=== PATIENT | female | born 1940 | race Caucasian/White ===

== ENCOUNTER 2020-06-26 20:10 | Inpatient (IN) | payer MEDICARE, SELFPAY ==
[2020-06-26] VITALS (7 sets, daily range): BP systolic 89–106; BP diastolic 54–68; PULSE 61–97; RESP 16–19; TEMP 36.3; O2SAT 94–99
--- NOTE | ~2020-06-26 | XR_ITS ---
XR chest 2V 06/26/2020 20:54 Indication: Syncope. Procedure: 2 view chest Comparison: No prior studies for comparison. Findings: Cardiomegaly. Small pleural effusions. No focal pneumonia, edema or pneumothorax. There is a left shoulder arthroplasty. No acute osseous abnormality. Impression: 1: Cardiomegaly. 2: Small pleural effusions. Reviewed, dictated and finalized at location A. Impression: 1: Cardiomegaly. 2: Small pleural effusions.
--- NOTE | ~2020-06-26 | US_ITS ---
EXAMINATION: US renal BI EXAM DATE: 06/27/2020 14:39 INDICATION: Acute kidney injury, rule out hydronephrosis. TECHNIQUE: Multiple grayscale and Doppler images of the kidneys were obtained (by a technologist who performed the scan) and subsequently reviewed. There is no prior study for comparison. FINDINGS: Incidental note made of distended IVC. There is bilateral renal cortical thinning, atrophy. Right kidney: There is normal contour and echogenicity. It measures 8.9 x 4.0 x 4.1 centimeters. Th ere are no focal renal lesions identified. There is no hydronephrosis. Left kidney: There is normal contour and echogenicity. It measures 9.2 x 5.1 x 4.5 centimeters. Ther e is 7 mm echogenic focus in the midpole, identical echogenicity to the hilar fat. This could be a pr ojection of the hilar fat extending into renal parenchyma, could be small angiomyolipoma or other angel al mass. There is no hydronephrosis. Bladder unremarkable. Ureteral jets were identified. IMPRESSION: 1. Bilateral renal cortical thinning, atrophy. 2. Incidental echogenic left kidney midpole focus, suspect most likely fat containing region or mass , most likely a benign finding. 3. No hydronephrosis. Reviewed, dictated and finalized at location A. IMPRESSION: 1. Bilateral renal cortical thinning, atrophy. 2. Incidental echogenic left kidney midpole focus, suspect most likely fat con taining region or mass, most likely a benign finding. 3. No hydronephrosis.
--- NOTE | 2020-06-26 20:12 | ECG_ITS ---
Measurements Intervals [place] Rate: 67 P: SC: 0 QRS: 92 QRSD: 87 T: 30 QT: 402 QTc: 427 Interpretive Statements ATRIAL FIBRILLATION RIGHT AXIS DEVIATION LOW QRS VOLTAGE IN PRECORDIAL LEADS BORDERLINE T WAVE ABNORMALITY- ANT/INF LEADS ABNORMAL ECG Electronically Signed On 06-27-2020 6:53:29 CDT by Jacob Rondon D.O.
[2020-06-26 20:43] LABS: Basophils Absolute Auto 0.1 K/mm3 (0.0-0.1); Basophils Percent Auto 1.2 % (0.2-1.2); Eosinophils Absolute Auto 0.1 K/mm3 (0-0.3); Eosinophils Percent Auto 2.7 % (0-4.4); Hematocrit 28.3 % (37.0-47.0); Immature Granulocyte Absolute 0.02 K/mm3 (0.00-0.031); Immature Granulocyte Percent A 0.4 % (0-0.5); Immature Platelet Fraction Pct 5.1 % (0.9-11.2); Lymphocytes Absolute Auto 0.85 K/mm3 (0.9-3.2); Lymphocytes Percent Auto 17.5 % (18.3-44.2); Mean Corpuscular HGB Conc 31.8 g/dl (32-36); Mean Corpuscular Hemoglobin 26.6 pg (26-34); Mean Corpuscular Volume 83.7 fl (80-100); Mean Platelet Volume 11.4 fl (7.4-10.4); Monocytes Absolute Auto 0.8 K/mm3 (0.1-0.6); Monocytes Percent Auto 16.5 % (2.6-8.5); Neutrophils Percent Auto 61.7 % (45.5-73.1); Platelet Count Result 146 k/mm3 (150-375); Red Blood Count 3.38 M/mm3 (4.2-5.4); Red Cell Distribution Width 23.5 % (11.5-14.5); White Blood Count 4.9 K/mm3 (4.5-10.0)
[2020-06-26 20:46] LABS: Glucose Point of Care 179 (65-105)
[2020-06-26 20:52] LABS: INR 1.9; Prothrombin Time 22.8 Seconds (11.1-14.7)
[2020-06-26 20:53] LABS: Partial Thromboplastin Time 55.1 SECONDS (22.3-36.8)
[2020-06-26 20:54] LABS: Alanine Aminotransferase 21 U/L (4-35); Albumin Level 3.7 g/dL (3.5-5.1); Alkaline Phosphatase 151 U/L (38-126); Anion Gap 11 mmol/L (8-16); Aspartate Amino Transferase 43 U/L (14-36); Blood Urea Nitrogen 58 mg/dL (7-17); Calcium 8.9 mg/dL (8.4-10.2); Carbon Dioxide 20 mmol/L (22-30); Chloride 103 mmol/L (98-107); Estimated CRCL calculation 14 ml/min; Estimated Glomerular Filt Rate 20; Glucose 177 mg/dL (65-105); Potassium 5.2 mmol/L (3.4-5.0); Sodium 134 mmol/L (137-145)
--- NOTE | 2020-06-26 21:29 | ED.GENADULT ---
HPI - General Adult General Chief complaint: Unspecified Stated complaint: she has stopped breathing Time Seen by Provider: 06/26/20 20:16 History of Present Illness HPI narrative: Patient is a 80-year-old female who presents the ER with syncope and shortness of breath. Patient and her were getting in the car to go to [employer] and get some ice cream when she reports she felt an upset stomach. She sat in the car and then the reports that she lost consciousness and just was having heavy breathing. She would not respond to his questions or other stimuli. Patient awoke upon arrival to the ER. She has no chest pain or chest pressure. She reports feeling off along with having the abdominal discomfort prior to this occurring. This time she has no additional complaints and other symptoms have resolved. Patient recently moved here from [place]. She has not establish care since moving here. Related Data Allergies Allergy/AdvReac Type Severity Reaction Status Date / Time oxycodone Allergy Stopped Verified 06/26/20 20:28 Breathing Penicillins Allergy Rash Verified 06/26/20 20:28 Sulfa (Sulfonamide Allergy Rash Verified 06/26/20 20:28 Antibiotics) Review of Systems Review of Systems: All systems reviewed & are unremarkable except as noted in HPI and below Constitutional: Constitutional: Reports fatigue, Denies fever(s) and Denies headache(s) Cardiovascular: Cardiovascular: Denies chest pain, Reports syncope, Denies palpitations and Denies dyspnea Respiratory: Respiratory: Denies cough, Denies dyspnea and Denies dyspnea on exertion Gastrointestinal: Gastrointestinal: Denies abdominal pain, Reports GI cramping, Denies diarrhea, Denies nausea and Denies vomiting Neurologic: Reports syncope, Denies focal weakness, Denies numbness and Denies Sensory deficit (Neuro) [facility] Past Medical History Medical History (Updated 06/27/20 @ 00:14 by Nelson Giordano MD) Asthma Atrial fibrillation CHF (congestive heart failure) CVA (cerebral vascular accident) Diabetes GERD (gastroesophageal reflux disease) History of coronary artery disease Hypercholesterolemia Hypertension IBS (irritable bowel syndrome) Surgical History Surgical History History of percutaneous coronary intervention Social History Social History Smoking status: Never smoker Exam Narrative: Exam Narrative: GENERAL: Well-appearing, well-nourished, and in no acute distress. HEAD: Normocephalic, atraumatic. ENT: Mucous membranes moist. CHEST: Clear to auscultation. No respiratory distress. HEART: Regular rate and rhythm. Normal peripheral pulses. ABDOMEN: Soft, nontender, nondistended. EXTREMITIES: Normal range of motion. 2+ edema. SKIN: Warm, dry, no rash. NEURO: No focal deficits. Alert and oriented x3. PSYCH: Normal mood and affect. Course Course Emergency Course: Patient accepted to hospitalist service. Patient is unsure what her baseline lab work is including her creatinine and her hemoglobin. She now reports that a couple weeks ago she was hospitalized in [place] and had a blood transfusion. Will attempt to obtain records. Hospitalist service contacted and has accepted patient for admission. Patient's blood pressures been soft but stable. She was not orthostatic. She reports she has a preserved ejection fraction but given the fact that she has very little knowledge about her medical issues at baseline we will hydrate her conservatively with normal saline at 80 mL/h. Reevaluation(s) Reevaluation #1: Patient evaluated by hospitalist. They are now reporting patient had a GI bleed and currently takes Pradaxa. Hospitalist reports he will contact GI as he guaiaced her and patient had dark tarry stools. Patient stable at this time. No tachycardia. No recurrent syncope. She has not had a bloody bowel movement this time. Date:
[2020-06-26 22:47] LABS: Alveolar/Arterial O2 Gradient 55.2 mmHg; Base Excess ABG -2.3 mEq/l (+/-2.0); Fractional Inspired Oxygen 21 %; HCO3 ABG 19.5 mEq/l (22.0-26.0); Oxygen Content ABG 12.6 %vol (16.0-22.0); PCO2 ABG 24.6 mmHg (35.0-45.0); PO2 ABG 65.1 mmHg (80.0-100.0); Total Hemoglobin 9.7 g/dL (12.0-18.0)
[2020-06-26 22:48] LABS: Device ROOM AIR; Modified Allen's Test Pass; Site Drawn RIGHT RADIAL; pH ABG 7.518 (7.350-7.450)
[2020-06-26 22:53] LABS: Add Urine Microscopic? YES; Appearance Urine Cloudy (Clear); Bilirubin Urine Negative (Negative); Blood Urine Negative (Negative); Color Urine Yellow (Yellow); Glucose Urine UA Negative (Negative); Hyaline Casts Urine 50+ /lpf; Ketones Urine Negative (Negative); Leukocyte Esterase Ur Negative LEU/UL (Negative); Mucus Urine Rare /lpf; Nitrate Urine Negative (Negative); Protein Urine 2+ mg/dL (Negative); RBC Urine 0-2 /hpf (0-2); Specific Grav Ur 1.012 (1.001-1.035); Squamous Epithelial Cell Urine Many /hpf (Few); Transitional Epi Cells Urine Rare /hpf (None Seen); Urobilinogen Urine Negative mg/dL (<2.0); WBC Urine 0-3 /hpf
--- NOTE | 2020-06-26 23:56 | PM.IMHP ---
H&P: HPI History of Present Illness Date/Time: 06/26/20 23:00 Chief Complaint: Passed out today while in the car. Narrative: This is a pleasant 80-year-old diabetic female with known history of congestive heart failure and atrial fibrillation on chronic Pradaxa therapy who [facility] after suffering a syncopal episode. The patient is known to have just relocated from [place] and she was just admitted approximately 2 weeks ago for a GI bleed in [place]. The patient reports that she was got into the car to go to [facility] today when suddenly she felt lightheaded and nauseated and passed out. Associated symptoms include shortness of breath. She was unconscious for about 15 minutes before her got to the hospital. She denies any chest pain, palpitations, abdominal pain, dysuria, vomiting, diarrhea, or focal neurological deficits. The patient does report black stools which she believes is secondary to her hemorrhoids. Routine labs demonstrated normocytic anemia with a Hgb of 7.0 and Hct of 28.3 and acute renal failure with a Cr of 2.40. On my encounter with the patient the patient tells me that she feels very lightheaded. I performed a rectal exam at bedside which was guaiac positive+ No other complaints at this time. Review of Systems Review of Systems: All systems reviewed & are unremarkable except as noted in HPI and below PMFSH Past Medical History Medical History Asthma Atrial fibrillation CHF (congestive heart failure) CVA (cerebral vascular accident) Diabetes GERD (gastroesophageal reflux disease) History of coronary artery disease Hypercholesterolemia Hypertension IBS (irritable bowel syndrome) Surgical History Surgical History History of percutaneous coronary intervention Family History Family History (Updated 06/27/20 @ 01:36 by Keri Geronimo RN) Sibling Brain tumor Hypothyroidism Mother CAD (coronary artery disease) Social History Social History Smoking status: Never smoker Alcohol intake: never Substance use: never Spiritual care concerns: No Meds Home Medications and Allergies Home Medications Medication Instructions Recorded Confirmed Type atorvastatin 10 mg PO DAILY 06/27/20 06/27/20 History benzonatate 100 mg PO TID PRN 06/27/20 06/27/20 History bumetanide 0.5 mg PO BID 06/27/20 06/27/20 History carvedilol 12.5 mg PO BID 06/27/20 06/27/20 History clopidogrel 75 mg PO DAILY 06/27/20 06/27/20 History dabigatran etexilate [Pradaxa] 75 mg PO DAILY 06/27/20 06/27/20 History famotidine 40 mg PO BID 06/27/20 06/27/20 History ferrous sulfate 1 tablet PO DAILY 06/27/20 06/27/20 History gabapentin 400 mg PO BID 06/27/20 06/27/20 History hydralazine 50 mg PO BID 06/27/20 06/27/20 History levothyroxine 125 mcg PO DAILY 06/27/20 06/27/20 History metolazone 2.5 mg PO EVERY OTHER DAY 06/27/20 06/27/20 History potassium chloride 40 meq PO DAILY 06/27/20 06/27/20 History Allergies Allergy/AdvReac Type Severity Reaction Status Date / Time apixaban [From Eliquis] Allergy Rash Verified 06/27/20 02:37 oxycodone Allergy Stopped Verified 06/26/20 20:28 Breathing Penicillins Allergy Rash Verified 06/26/20 20:28 rivaroxaban [From Xarelto] Allergy Rash Verified 06/27/20 02:36 Sulfa (Sulfonamide Allergy Rash Verified 06/26/20 20:28 Antibiotics) Vital Signs Vital Signs - 24 hr 06/26/20 20:20 06/26/20 20:25 06/26/20 20:37 Temperature 36.3 C L Pulse Rate 72 72 65 Respiratory Rate 17 Blood Pressure 106/54 L 103/59 L Pulse Oximetry 99 06/26/20 20:38 06/26/20 21:12 06/26/20 22:00 Temperature Pulse Rate 67 97 68 Respiratory Rate 19 16 Blood Pressure 104/67 89/68 L 98/54 L Pulse Oximetry 97 97 06/26/20 23:16 Temperature Pulse Rate 61 Respiratory Rate 16 Blood Pressure 101/58
[2020-06-27] VITALS (32 sets, daily range): BP systolic 89–154; BP diastolic 53–81; PULSE 60–77; RESP 13–22; TEMP 33.3–36.3; O2SAT 93–100; BMI 24.8
--- NOTE | 2020-06-27 | ECHO_ITS ---
Patient Info Name: Carol Ken Age: 80 years : 1940 Gender: Female Ht: 62 in Wt: 136 lbs BSA: 1.65 m2 HR: 63 bpm BP: 90 / 54 mmHg Heart Rhythm: Atrial Fibrillation, Bradycardia Technical Quality: Good Exam Date: 06/27/2020 10:39 AM Exam Location: [facility] Pulmonary Patient Status: Inpatient Admit Date: 06/26/2020 Staff Ordering Physician: Gilson Christopher MD Turbine Technician: Gildardo Perez, GUILLECS, RT Attending Provider: Nelson Giordano MD Referring Physician: Candi WALKER; Exam Type: CA echo doppler color flow Study Info Indications R55 - Syncope and collapse Complete two-dimensional, color flow and Doppler transthoracic echocardiogram is performed. Summary 1. Complete two-dimensional, color flow and Doppler transthoracic echocardiogram is performed. 2. Left ventricular systolic function is normal, estimated at 55%. 3. Left ventricular chamber dimension is normal. 4. Left ventricular septal wall motion is abnormal with septal motion related to bundle branch block. 5. Right ventricular chamber dimension is moderately enlarged. 6. Right ventricular systolic function is reduced. 7. Left atrial chamber dimension is severely enlarged. 8. Right atrial chamber dimension is severely enlarged. 9. There is no aortic valve stenosis. 10. There is mild to moderate mitral valve regurgitation. 11. There is severe tricuspid valve regurgitation. 12. No pulmonary hypertension, estimated pulmonary arterial systolic pressure is 25 mmHg. 13. Dilated inferior vena cava with no collapse upon inspiration consistent with significantly elevated right atrial pressure, 15 mmHg. Left Ventricle Left ventricular chamber dimension is normal. Left ventricular systolic function is normal, estimated at 55%. There is no increased left ventricular wall thickness. Left ventricular septal wall motion is abnormal with septal motion related to bundle branch block. The left ventricular diastolic function is indeterminate. Right Ventricle Right ventricular chamber dimension is moderately enlarged. Right ventricular systolic function is reduced. Left Atria Left atrial chamber dimension is severely enlarged. Right Atria Right atrial chamber dimension is severely enlarged. Aortic Valve The aortic valve is trileaflet. There is mild aortic valve sclerosis. There is no aortic valve stenosis. There is no aortic valve regurgitation. Pulmonic Valve The pulmonic valve is normal. There is mild pulmonic regurgitation. Mitral Valve The mitral valve has thickened leaflets. There is mild to moderate mitral valve regurgitation. The mitral valve annulus is mildly calcified. Tricuspid Valve The tricuspid valve leaflets are normal. There is severe tricuspid valve regurgitation. No pulmonary hypertension, estimated pulmonary arterial systolic pressure is 25 mmHg. Pericardium/Pleural The pericardium appears normal. There is no pericardial effusion. Inferior Vena Cava Dilated inferior vena cava with no collapse upon inspiration consistent with significantly elevated right atrial pressure, 15 mmHg. Aorta The aortic root size at the sinus of Valsalva is normal. Left Ventricular Outflow Tract Name Value Normal LVOT 2D
[2020-06-27 00:11] LABS: Hematocrit 28.5 % (37.0-47.0); Hemoglobin 9.3 g/dL (12.0-15.0)
--- NOTE | 2020-06-27 01:10 | PC.NURSE ---
This patient, Carol Ken, was admitted to Intensive Care Unit-7. Patient/family oriented to hospital policies and general routines including ID bracelet, bed and alarms, visiting hours, pain management, procedures, bathroom and other care routines, personal items, smoking policy, room service/diet, and visiting hours. Information on how to activate the Rapid Response Team has been discussed. Patient/Family are encouraged to report perceived risks to care and to ask questions if they do not understand what they are told or what they should do.
[2020-06-27 01:34] LABS: Anion Gap 8 mmol/L (8-16); Blood Urea Nitrogen 59 mg/dL (7-17); Calcium 8.6 mg/dL (8.4-10.2); Carbon Dioxide 22 mmol/L (22-30); Chloride 104 mmol/L (98-107); Estimated CRCL calculation 13 ml/min; Estimated Glomerular Filt Rate 19; Glucose 151 mg/dL (65-105); Magnesium 2.9 mg/dL (1.6-2.3); Potassium 5.5 mmol/L (3.4-5.0); Sodium 134 mmol/L (137-145)
[2020-06-27 04:45] LABS: Eosinophils Absolute Auto 0.1 K/mm3 (0-0.3); Eosinophils Percent Auto 1.6 % (0-4.4); Hematocrit 25.4 % (37.0-47.0); Hemoglobin 8.2 g/dL (12.0-15.0); Immature Granulocyte Absolute 0.02 K/mm3 (0.00-0.031); Immature Granulocyte Percent A 0.5 % (0-0.5); Immature Platelet Fraction Pct 5.2 % (0.9-11.2); Lymphocytes Absolute Auto 0.78 K/mm3 (0.9-3.2); Lymphocytes Percent Auto 20.3 % (18.3-44.2); Mean Corpuscular HGB Conc 32.3 g/dl (32-36); Mean Corpuscular Hemoglobin 26.7 pg (26-34); Mean Corpuscular Volume 82.7 fl (80-100); Mean Platelet Volume 11.3 fl (7.4-10.4); Monocytes Absolute Auto 0.5 K/mm3 (0.1-0.6); Monocytes Percent Auto 11.7 % (2.6-8.5); Neutrophils Absolute Auto 2.5 K/mm3 (1.3-6.7); Neutrophils Percent Auto 64.9 % (45.5-73.1); Platelet Count Result 120 k/mm3 (150-375); Red Blood Count 3.07 M/mm3 (4.2-5.4); Red Cell Distribution Width 23.5 % (11.5-14.5); White Blood Count 3.8 K/mm3 (4.5-10.0)
[2020-06-27 04:56] LABS: Anion Gap 8 mmol/L (8-16); Blood Urea Nitrogen 57 mg/dL (7-17); Calcium 8.6 mg/dL (8.4-10.2); Carbon Dioxide 21 mmol/L (22-30); Chloride 105 mmol/L (98-107); Estimated CRCL calculation 12 ml/min; Estimated Glomerular Filt Rate 17; Glucose 160 mg/dL (65-105); Magnesium 2.9 mg/dL (1.6-2.3); Potassium 4.9 mmol/L (3.4-5.0); Sodium 134 mmol/L (137-145)
[2020-06-27 05:03] LABS: Hypochromasia 1+ (NORMAL); Ovalocytes 1+ (NORMAL)
[2020-06-27 05:04] LABS: Macrocytosis 1+ (NORMAL)
[2020-06-27] MEDS: LEVOTHYROXINE SODIUM INJ 100 MCG/5 ML VIAL 62.5 MCG IV PUSH (05:21)
[2020-06-27 05:31] LABS: Glucose Point of Care 150 (65-105)
[2020-06-27] MEDS: SODIUM CHLORIDE 0.9% IV 500 ML IV CONT (08:07)
--- NOTE | 2020-06-27 08:57 | WPDGICN ---
Assessment and Plan Assessment and plan (1) Acute GI bleeding: Code(s): K92.2 - Gastrointestinal hemorrhage, unspecified Status: Acute Assessment and Plan: will proceed with egd to assess source of bleeding. Will get records from recent colonoscopy (patient says that had diverticular bleeding) and pradaxa has been discontinued continue with protonix iv (2) Acute on chronic blood loss anemia: Code(s): D62 - Acute posthemorrhagic anemia Status: Acute Assessment and Plan: continue to monitor transfuse if hb<7 (3) Syncope: Qualifiers: Syncope type: unspecified Qualified Code(s): R55 - Syncope and collapse Code(s): R55 - Syncope and collapse Status: Acute Assessment and Plan: supportive care patient is in icu (4) Renal insufficiency: Code(s): N28.9 - Disorder of kidney and ureter, unspecified Status: Acute Assessment and Plan: monitor and medical treatment (5) Atrial fibrillation: Qualifiers: Atrial fibrillation type: unspecified chronic Qualified Code(s): I48.20 - Chronic atrial fibrillation, unspecified Code(s): I48.91 - Unspecified atrial fibrillation Status: Chronic (6) Anticoagulant long-term use: Code(s): Z79.01 - skilled nursing (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 of anticoagulants Status: Acute Assessment and Plan: on hold GI Consult Note Consult date/time: 06/27/20 08:57 Reason for consult: dark stools HPI: Carol Ken is a 80 year old female with previous GIB (she says that about 3 weeks ago was admitted for GIB, had colonoscopy when used to live in [place] and was told that source of bleeding was diverticular), also congestive heart failure and atrial fibrillation using Pradaxa. She just moved up here about 1 week ago. She was admitted after had episode of lightheadedness, nausea and finally passed out when was in her car with for a few minutes. She also has been having black stools which she believes is secondary to her hemorrhoids and using iron. Labs showed Hgb of 7.0, acute renal failure with a Cr of 2.40. Admitted to ICU, started on iv protonix, given FFP and pradaxa discontinued. She says that had EGD but years ago. Review of Systems Constitutional: Constitutional: Denies chills Eyes: Eyes: Denies blurry vision ENT: Reports Normal hearing present Cardiovascular: Cardiovascular: Denies chest pain Respiratory: Respiratory: Denies cough Gastrointestinal: Gastrointestinal: Denies abdominal pain, Reports melena and Reports nausea Genitourinary: Genitourinary: Denies flank pain Musculoskeletal: Musculoskeletal: Denies neck pain Integumentary/Breasts: Skin/Breast: Reports system reviewed and no additional complaints, except as docu Neurologic: Reports system reviewed and no additional complaints, except as documented Psychiatric: Psychiatric: Reports no additional psychiatric complaints [facility] Past Medical History Medical History (Updated 06/27/20 @ 09:30 by Gilson Christopher MD) Acute on chronic blood loss anemia Anticoagulant long-term use Asthma Atrial fibrillation CHF (congestive heart failure) CVA (cerebral vascular accident) Diabetes GERD (gastroesophageal reflux disease) History of coronary artery disease Hypercholesterolemia Hypertension IBS (irritable bowel syndrome) Surgical History Surgical History History of percutaneous coronary intervention Family History Family History (Updated 06/27/20 @ 01:36 by Keri Geronimo RN) Sibling Brain tumor Hypothyroidism Mother CAD (coronary artery disease) Social History Social History Smoking status: Never smoker Alcohol intake: never Substance use: never Spiritual care concerns: No Meds Home Medications and Allergies Home Medications Medication Instructions Recorded Confirmed Type alma
--- NOTE | 2020-06-27 09:22 | WPDCNINT ---
Assessment and Plan Assessment and plan (1) Syncope: Qualifiers: Syncope type: unspecified Qualified Code(s): R55 - Syncope and collapse Code(s): R55 - Syncope and collapse Status: Acute Assessment and Plan: Patient with multiple syncopal episodes since be 2020: She has had workup done in [place], she had a colonoscopy which showed possible diverticulitis/diverticular bleed. -patient dropped hemoglobin overnight -continue Protonix infusion, -GI has been consulted and appreciate the evaluation recommendation. EGD has been scheduled -will hold Pradaxa, in all the anti platelets and anticoagulation medications. (2) Acute GI bleeding: Code(s): K92.2 - Gastrointestinal hemorrhage, unspecified Status: Acute Assessment and Plan: as above (3) Renal insufficiency: Code(s): N28.9 - Disorder of kidney and ureter, unspecified Status: Acute Assessment and Plan: Unknown baseline function, records have been requested from [facility] with the patient was then recently, 2 weeks back -she does have a history of hypertension, diabetes could have some chronic kidney disease due to that -patient is hypotensive, hypovolemic -will obtain urine lytes, her renal ultrasound - was given a 500 cc bolus with improvement in the blood pressures and urine output -continue to monitor renal function, electrolytes urine output (4) Thrombocytopenia: Code(s): D69.6 - Thrombocytopenia, unspecified Status: Acute Assessment and Plan: Thrombocytopenia could be related to increased consumption due to recent GI bleed and/or ongoing GI bleed -continue to monitor (5) Atrial fibrillation: Qualifiers: Atrial fibrillation type: unspecified chronic Qualified Code(s): I48.20 - Chronic atrial fibrillation, unspecified Code(s): I48.91 - Unspecified atrial fibrillation Status: Chronic Assessment and Plan: Patient with history of atrial fibrillation, on Pradaxa with elevated INR -1 unit of FFP has been ordered to be transfused (6) Anemia: Code(s): D64.9 - Anemia, unspecified Status: Acute Assessment and Plan: Likely due to GI bleed, will continue to monitor -transfuse PRBC as needed Additional Plan Discussed with patient updated her with her condition and plan of care. I answered all questions. She is aware that she will be getting a a EGD today. I have also told her that a I will be ordering an echocardiogram and a bath solution maker will evaluate her Code status: Full code Critical care time spent: 47 minutes This dictation may have been done utilizing a voice recognition system. Attempts have been made to correct errors. However, there may be uncorrected grammatical, spelling, and recognition errors present. Due to a high probability of clinically significant, life threatening deterioration, the patient required my highest level of preparedness to intervene emergently and I personally spent this critical care time directly and personally managing the patient. This critical care time included obtaining a history; examining the patient; pulse oximetry; ordering and review of studies; arranging urgent treatment with development of a management plan; evaluation of patient's response to treatment; frequent reassessment; and discussions with other providers. It was exclusive of separately billable procedures and treating other patients and teaching time. Please see Assessment and Plan section and the rest of the note for further information on patient assessment and treatment Solutions Developer Consult Note Consult date: 06/27/20 Time Seen: 07:09 Reason for consult: syncopal episode, anemia guaiac-positive stools, recent GI bleed 2 weeks ago in [place] HPI: Carol Ken is a 80 year old pleasant female with past medical history of atrial fibrillation on Pradaxa, history of CHF, diabetes type 2, GERD, coronary artery disease, hypercholesterolemia
--- NOTE | 2020-06-27 11:45 | PC.NURSE ---
Pt to GI lab via ritesh
[2020-06-27] MEDS: LACTATED RINGERS 1,000 ML 150 ML IV CONT (12:29)
[2020-06-27 12:36] LABS: Glucose Point of Care 127 (65-105)
--- NOTE | 2020-06-27 13:00 | PM.IMPN ---
Progress Note: A&P Assessment and Plan (1) Syncope: Qualifiers: Syncope type: unspecified Qualified Code(s): R55 - Syncope and collapse Code(s): R55 - Syncope and collapse Status: Acute Assessment and Plan: Appears to be secondary to an acute GI bleed. (2) Acute GI bleeding: Code(s): K92.2 - Gastrointestinal hemorrhage, unspecified Status: Acute Assessment and Plan: Patient was guaiac positive on bedside exam. We will admit the patient to ICU as the patient is hypertensive, obtain old records from last month for scope. continue iv fluids iv protonix. sp FFP, continue to monitor hb (3) Renal insufficiency: Code(s): N28.9 - Disorder of kidney and ureter, unspecified Status: Acute Assessment and Plan: Acute versus chronic renal failure likely secondary to hypoperfusion, continue to watch uo and bmp, creat is 2.7. (4) Thrombocytopenia: Code(s): D69.6 - Thrombocytopenia, unspecified Status: Acute Assessment and Plan: Monitor platelets, transfuse p.r.n. (5) Acute respiratory failure with hypoxemia: Code(s): J96.01 - Acute respiratory failure with hypoxia Status: Acute Assessment and Plan: Oxygen supplementation. (6) Hyperkalemia: Code(s): E87.5 - Hyperkalemia Status: Resolved (7) Atrial fibrillation: Qualifiers: Atrial fibrillation type: unspecified chronic Qualified Code(s): I48.20 - Chronic atrial fibrillation, unspecified Code(s): I48.91 - Unspecified atrial fibrillation Status: Chronic Assessment and Plan: Hold anticoagulation as the patient appears to be having a GI bleed. hold pradaxa (8) CHF (congestive heart failure): Qualifiers: Heart failure type: unspecified Heart failure chronicity: chronic Qualified Code(s): I50.9 - Heart failure, unspecified Code(s): I50.9 - Heart failure, unspecified Status: Chronic Assessment and Plan: Monitor fluid status. Resume home CHF medications when appropriate. (9) Diabetes: Qualifiers: Diabetes mellitus type: type 2 Diabetes mellitus exterminator helper insulin use: unspecified fci insulin use status Diabetes mellitus complication status: without complication Qualified Code(s): E11.9 - Type 2 diabetes mellitus without complications Code(s): E11.9 - Type 2 diabetes mellitus without complications Status: Chronic Assessment and Plan: Accu-Cheks, sliding scale insulin coverage, hypoglycemia protocol. (10) GERD (gastroesophageal reflux disease): Qualifiers: Esophagitis presence: esophagitis presence not specified Qualified Code(s): K21.9 - Gastro-esophageal reflux disease without esophagitis Code(s): K21.9 - Gastro-esophageal reflux disease without esophagitis Status: Chronic Assessment and Plan: Continue PPI therapy. (11) Hypertension: Qualifiers: Hypertension type: unspecified Qualified Code(s): I10 - Essential (primary) hypertension Code(s): I10 - Essential (primary) hypertension Status: Chronic Assessment and Plan: The patient has had labile blood pressures overnight. pt continues to be low. continue to watch patient in icu, pt seen by icu and gi Additional Plan . Subjective Date/time seen: 06/27/20 13:00 Review of Systems Review of Systems: All systems reviewed & are unremarkable except as noted in HPI and below Exam Const: General: cooperative, tired appearing and other (Pale appearing) Orientation/consciousness: patient oriented x3 Resp: Auscultation: diminished lung sounds Cardio: Rate: regular rate Rhythm: abnormal rhythm irregularly irregular Heart sounds: no murmurs GI: Inspection: normal to inspection Auscultation: normal bowel sounds Rectal Exam: heme positive stool Skin: General skin exam: normal color and no rashes or lesions noted Neuro: General: patient
--- NOTE | 2020-06-27 13:18 | WPDANESEPPF ---
Anes - Initial Pre Proc Eval Procedure: Operation Date: 06/27/20 13:00 Proposed Procedures p Esophagogastroduodenoscopy - Patrick Massey MD Date/Time: 06/27/20 13:18 Surgeon: Nelson Giordano MD Pre Op Diagnosis: GI bleed, syncope Patient Data Age: 80 Gender: F Height: 5 ft 2 in Weight: 61.7 kg Last Vital Signs Temp 95.7 F L 06/27/20 13:06 Pulse 74 06/27/20 13:06 Resp 16 06/27/20 13:06 BP 154/81 H 06/27/20 13:06 Pulse Ox 93 06/27/20 13:06 Allergies Allergy/AdvReac Type Severity Reaction Status Date / Time apixaban [From Eliquis] Allergy Rash Verified 06/27/20 12:04 oxycodone Allergy Stopped Verified 06/27/20 12:04 Breathing Penicillins Allergy Rash Verified 06/27/20 12:04 rivaroxaban [From Xarelto] Allergy Rash Verified 06/27/20 12:04 Sulfa (Sulfonamide Allergy Rash Verified 06/27/20 12:04 Antibiotics) Home Medications Medication Instructions Recorded Confirmed Type atorvastatin 10 mg PO DAILY 06/27/20 06/27/20 History benzonatate 100 mg PO TID PRN 06/27/20 06/27/20 History bumetanide 0.5 mg PO BID 06/27/20 06/27/20 History carvedilol 12.5 mg PO BID 06/27/20 06/27/20 History clopidogrel 75 mg PO DAILY 06/27/20 06/27/20 History dabigatran etexilate [Pradaxa] 75 mg PO DAILY 06/27/20 06/27/20 History famotidine 40 mg PO BID 06/27/20 06/27/20 History ferrous sulfate 1 tablet PO DAILY 06/27/20 06/27/20 History gabapentin 400 mg PO BID 06/27/20 06/27/20 History hydralazine 50 mg PO BID 06/27/20 06/27/20 History levothyroxine 125 mcg PO DAILY 06/27/20 06/27/20 History metolazone 2.5 mg PO EVERY OTHER DAY 06/27/20 06/27/20 History potassium chloride 40 meq PO DAILY 06/27/20 06/27/20 History Laboratory Tests 06/26/20 06/26/20 06/26/20 20:23 20:33 20:33 WBC 4.9 K/mm3 K/mm3 (4.5-10.0) RBC 3.38 M/mm3 L M/mm3 (4.2-5.4) Hgb 9.0 g/dL L g/dL (12.0-15.0) Hct 28.3 % L % (37.0-47.0) MCV 83.7 fl fl (80-100) MCH 26.6 pg pg (26-34) MCHC 31.8 g/dl L g/dl (32-36) RDW 23.5 % H % (11.5-14.5) Plt Count 146 k/mm3 L k/mm3 (150-375) MPV 11.4 fl H fl (7.4-10.4) Immature Gran % (Auto) 0.4 % % (0-0.5) Neut % (Auto) 61.7 % % (45.5-73.1) Lymph % (Auto) 17.5 % L % (18.3-44.2) [place] % (Auto) 16.5 % H % (2.6-8.5) Eos % (Auto) 2.7 % % (0-4.4) Baso % (Auto) 1.2 % % (0.2-1.2) Lymph # (Auto) 0.85 K/mm3 L K/mm3 (0.9-3.2) [place] # (Auto) 0.8 K/mm3 H K/mm3 (0.1-0.6) Eos # (Auto) 0.1 K/mm3 K/mm3 (0-0.3) Baso # (Auto) 0.1 K/mm3 K/mm3 (0.0-0.1) Abs Immat Gran (auto) 0.02 K/mm3 K/mm3 (0.00-0.031) Absolute Neuts (auto) 3.0 K/mm3 K/mm3 (1.3-6.7) Absolute Nucleated RBC 0.0 K/mm3 K/mm3 (0.0-0.012) Nucleated RBC % 0.0 % % (0.0-0.2) Platelet Estimate % Immature Plt Fraction 5.1 % % (0.9-11.2) Hypochromasia Macrocytosis Ovalocytes PT INR APTT Puncture Site ABG pH ABG pCO2 ABG pO2 ABG PO2/FiO2 Ratio ABG HCO3 ABG O2 Saturation ABG O2 Content ABG Base Excess A-a Gradient Oxyhemoglobin Total Hemoglobin O2 Delivery Device O2 Liters/Min FiO2 Sodium 134 mmol/L L mmol/L (137-145) Potassium 5.2 mmol/L H mmol/L (3.4-5.0) Chloride 103 mmol/L mmol/L (98-107) Carbon Dioxide 20 mmol/L L mmol/L (22-30) Anion Gap 11 mmol/L mmol/L (8-16) BUN 58 mg/dL H mg/dL (7-17) Creatinine 2.40 mg/dL H mg/dL (0.7-1.0) Estim Creat Clear Calc 14 ml/min ml/min Estimated GFR 20 L
--- NOTE | 2020-06-27 14:14 | PC.NURSE ---
Pt returned from GI lab via stretcher
--- NOTE | 2020-06-27 16:12 | PM.CNCAR ---
Assessment and Plan Additional Plan This is a 80-year-old lady with: Coronary artery disease and chronic atrial fibrillation as detailed above. She hemodynamically is stable is not reporting active ischemic symptoms and enters the hospital after having a self-limited syncopal episode outside of the hospital yesterday and was found to be significantly anemic upon arrival. She apparently is a GI bleeding from significant gastritis with active bleeding noted in the stomach in the GI lab. She also has some degree of senile AV node dysfunction since she is taking nothing but [place] moderate dose of carvedilol and has a heart rate in the 60s and 70s in atrial fibrillation. Echocardiogram today demonstrates reasonably good left ventricular systolic function renita to biatrial dilatation and [id number] mitral regurgitation. At this point the only cardiac recommendation to make is to discontinue both her anti-platelet and anticoagulant medication. I told the patient that the risk versus benefit analysis in my opinion is that anticoagulation is unfavorable with her history of falling and episodes of syncope as well as significant GI bleeding. Her coronary stent procedure was done about 6 months ago and I believe that anti-platelet medication in the form of clopidogrel should also be stopped for the time being. The remainder of her regimen including carvedilol, hydralazine and diuretics can be continued. Upon discharge she intends to become established with and follow with her new automatic brine mixer operator at [facility] and as such I will not arrange for follow-up in our office here as well as that would obviously be redundant. Og Dyer MD [facility] History of Present Illness History of Present Illness Consult date/time: Date of service 06/27/20 16:12 Reason For Visit: GI bleed, syncope Narrative: This is a 80-year-old woman I am seeing at the request of the hospitalist/nascar racer because of syncope which prompted admission to the hospital yesterday. The patient is a previous resident of this community who for many years had been living in the [facility] and moved back to this area for family reasons last week. She has a history of coronary artery disease and atrial fibrillation. She came into the hospital after having a syncopal episode yesterday apparently in the parking lot of an ice cream shop where she and her were going to get out and have ice cream cone. She was brought to the emergency room where she was found to be in atrial fibrillation she was also found to be significantly anemic with a hemoglobin of 7. She was providing history of some gilberto melanotic stool of recent onset although she was a rather poor historian in terms of the exact time course of that. In any event she was admitted to the ICU. Her anticoagulation and anti-platelet regimen has of course been placed on hold and she underwent upper endoscopy earlier today. The endoscopy demonstrated severe gastritis with losing into the fundus of the stomach. She is currently in ICU room 7. And does not actively have any cardiac complaints. Her history of heart disease dates back to 2005 when she states she was still living in this area and she suffered a myocardial infarction. She says that she was treated at [facility] and underwent percutaneous angioplasty and stenting. I have not seen any of those records at the time of this dictation. She did well and then moved to the [place] area where she states she was found to have atrial fibrillation a number of years ago. She can't really remember the time course of that but states that her automatic brine mixer operator in [place] performed at least 2 possibly 3 cardioversion procedures which failed to maintain sinus rhythm and then she underwent an attempt at ablation. The ablation procedure was unsuccessful and she has then been in chronic atrial fibrillation since that. She has been maintained on systemic anticoagulation. She has had a numbe
[2020-06-27 17:06] LABS: IFOB Positive Control Positive; Immunochemical Fecal Occult Bl Positive (N)
[2020-06-27 17:07] LABS: Creatinine Urine 98.8 mg/dL; Potassium Urine Random 87.6 meq/L
[2020-06-27 17:08] LABS: Sodium Urine Random < 5 meq/L
[2020-06-27 17:36] LABS: Eosinophil Urine None Seen % (None Seen)
[2020-06-27 17:49] LABS: Glucose Point of Care 200 (65-105)
--- NOTE | 2020-06-27 18:54 | PC.NURSE ---
Spoke with patient regarding releasing information. Pt stated Information maybe released to Silvia Ken RN
--- NOTE | 2020-06-27 21:50 | PC.NURSE ---
Spoke with Jeanne Chahal CERTIFIED MORTICIAN regarding low urine output, dizziness upon ambulation to bsc and unable to get accurate temp. Okay to place temperature julio. Start NS @ 50ml/hr.
[2020-06-27] MEDS: SODIUM CHLORIDE 0.9% IV 1,000 ML 50 ML IV CONT (22:22)
[2020-06-28] VITALS (11 sets, daily range): BP systolic 91–103; BP diastolic 55–76; PULSE 60–78; RESP 14–22; TEMP 34.9–36.6; O2SAT 92–98
--- NOTE | 2020-06-28 00:21 | PC.NURSE ---
Jeanne Chahal SUPERVISOR CUTTING AND BONING notified of low urine output and marginal blood pressure, Give 500ml NS bolus over 1 hour.
[2020-06-28] MEDS: SODIUM CHLORIDE 0.9% IV 500 ML IV CONT (00:41)
--- NOTE | 2020-06-28 01:15 | PC.NURSE ---
Oral temperature checked to compare to core temperature (due to low urine output) patient now 97.6 orally as before wasn't able to get one. Brett hugger turned off. Patient has minimal urine output, Jeanne Chahal CURING BIN OPERATOR aware. Bladder scan was done, patient shows less that 20 residual. Continue to monitor.
[2020-06-28 04:58] LABS: Basophils Absolute Auto 0.1 K/mm3 (0.0-0.1); Basophils Percent Auto 0.8 % (0.2-1.2); Eosinophils Absolute Auto 0.1 K/mm3 (0-0.3); Eosinophils Percent Auto 1.9 % (0-4.4); Hematocrit 24.8 % (37.0-47.0); Hemoglobin 8.2 g/dL (12.0-15.0); Immature Granulocyte Absolute 0.04 K/mm3 (0.00-0.031); Immature Granulocyte Percent A 0.5 % (0-0.5); Immature Platelet Fraction Pct 6.4 % (0.9-11.2); Lymphocytes Percent Auto 12.3 % (18.3-44.2); Mean Corpuscular HGB Conc 33.1 g/dl (32-36); Mean Corpuscular Hemoglobin 26.5 pg (26-34); Mean Platelet Volume 11.8 fl (7.4-10.4); Monocytes Percent Auto 13.1 % (2.6-8.5); Neutrophils Absolute Auto 5.2 K/mm3 (1.3-6.7); Neutrophils Percent Auto 71.4 % (45.5-73.1); Platelet Count Result 144 k/mm3 (150-375); Red Cell Distribution Width 23.5 % (11.5-14.5); White Blood Count 7.3 K/mm3 (4.5-10.0)
[2020-06-28 05:10] LABS: Anion Gap 9 mmol/L (8-16); Blood Urea Nitrogen 58 mg/dL (7-17); Calcium 8.5 mg/dL (8.4-10.2); Carbon Dioxide 21 mmol/L (22-30); Chloride 103 mmol/L (98-107); Estimated CRCL calculation 12 ml/min; Estimated Glomerular Filt Rate 17; Glucose 162 mg/dL (65-105); Magnesium 2.7 mg/dL (1.6-2.3); Phosphorus 3.9 mg/dL (2.5-4.5); Potassium 4.5 mmol/L (3.4-5.0); Sodium 133 mmol/L (137-145)
--- NOTE | 2020-06-28 05:19 | PC.NURSE ---
Spoke with Jeanne Chahal regarding urine output and labs and blood tinged urine. Give 250ml bolus. Consult nephrology for day shift. May give tylenol IV x1 for generalized aches and pain.
[2020-06-28] MEDS: LEVOTHYROXINE SODIUM INJ 100 MCG/5 ML VIAL 62.5 MCG IV PUSH (05:34)
[2020-06-28 05:36] LABS: Add Urine Microscopic? YES; Appearance Urine Cloudy (Clear); Bilirubin Urine Negative (Negative); Blood Urine 3+ (Negative); Color Urine Amber (Yellow); Glucose Urine UA Negative (Negative); Ketones Urine Negative (Negative); Leukocyte Esterase Ur 2+ LEU/UL (Negative); Nitrate Urine Negative (Negative); Protein Urine 2+ mg/dL (Negative); RBC Urine >75 /hpf (0-2); Specific Grav Ur 1.013 (1.001-1.035); Urobilinogen Urine Negative mg/dL (<2.0); WBC Urine >75 /hpf
[2020-06-28 07:42] LABS: Glucose Point of Care 152 (65-105)
[2020-06-28 08:19] LABS: Anion Gap 9 mmol/L (8-16); Blood Urea Nitrogen 62 mg/dL (7-17); Calcium 8.5 mg/dL (8.4-10.2); Carbon Dioxide 19 mmol/L (22-30); Chloride 103 mmol/L (98-107); Estimated CRCL calculation 13 ml/min; Estimated Glomerular Filt Rate 18; Glucose 156 mg/dL (65-105); Potassium 4.7 mmol/L (3.4-5.0); Sodium 131 mmol/L (137-145)
--- NOTE | 2020-06-28 08:45 | WPDANESPN ---
Anes - Prog Note Post-Op Date/Time: 06/28/20 08:45 Cardiovascular status: normal Respiratory status: other (supplemental O2 per NC) Airway patency: baseline Mental status: baseline Post-Op hydration status: normal Vital Signs: Last Vital Signs Temp 36.4 C L 06/28/20 08:00 Pulse 74 06/28/20 08:00 Resp 15 06/28/20 08:00 BP 95/55 L 06/28/20 08:00 Pulse Ox 95 06/28/20 08:00 Pain Score (VAS): 0 I/O: Intake & Output 06/27/20 06/28/20 06/28/20 23:59 07:59 15:59 Intake Total 640.2 1089.8 Output Total 200 125 Balance 440.2 964.8 Laboratory Tests 06/28/20 04:24 06/28/20 07:53 06/27/20 06/27/20 06/27/20 08:04 12:33 16:38 WBC RBC Hgb Hct MCV MCH MCHC RDW Plt Count MPV Immature Gran % (Auto) Neut % (Auto) Lymph % (Auto) [place] % (Auto) Eos % (Auto) Baso % (Auto) Lymph # (Auto) [place] # (Auto) Eos # (Auto) Baso # (Auto) Abs Immat Gran (auto) Absolute Neuts (auto) Absolute Nucleated RBC Nucleated RBC % % Immature Plt Fraction Sodium Potassium Chloride Carbon Dioxide Anion Gap BUN Creatinine Estim Creat Clear Calc Estimated GFR Glucose POC Capillary Glucose 127 H Calcium Phosphorus Magnesium Urine Color Urine Appearance Urine pH Ur Specific [place] Urine Protein Urine Glucose (UA) Urine Ketones Ur Blood (Man) Urine Nitrate Urine Bilirubin Urine Urobilinogen Leukocyte Esterase Rfl Urine RBC Urine WBC Urine Eosinophils Ur Random Creatinine Ur Random Sodium Ur Random Potassium Ur Random Chloride U Random Chloride/Creat Urine Creatinine Stl Occult Blood (IFOB) Positive H Blood Type B Positive Antibody Screen Negative 06/27/20 06/27/20 06/27/20 16:38 16:38 17:44 WBC RBC Hgb Hct MCV MCH MCHC RDW Plt Count MPV Immature Gran % (Auto) Neut % (Auto) Lymph % (Auto) [place] % (Auto) Eos % (Auto) Baso % (Auto) Lymph # (Auto) [place] # (Auto) Eos # (Auto) Baso # (Auto) Abs Immat Gran (auto) Absolute Neuts (auto) Absolute Nucleated RBC Nucleated RBC % % Immature Plt Fraction Sodium Potassium Chloride Carbon Dioxide Anion Gap BUN Creatinine Estim Creat Clear Calc Estimated GFR Glucose POC Capillary Glucose 200 H Calcium Phosphorus Magnesium Urine Color Urine Appearance Urine pH Ur Specific [place] Urine Protein Urine Glucose (UA) Urine Ketones Ur Blood (Man) Urine Nitrate Urine Bilirubin Urine Urobilinogen Leukocyte Esterase Rfl Urine RBC Urine WBC Urine Eosinophils None seen Ur Random Creatinine Pending Ur Random Sodium < 5 Ur Random Potassium 87.6 Ur Random Chloride Pending U Random Chloride/Creat Pending Urine Creatinine 98.8 Stl Occult Blood (IFOB) Blood Type Antibody Screen 06/28/20 06/28/20 06/28/20 04:24 04:24 04:43 WBC 7.3 RBC 3.10 L Hgb 8.2 L Hct 24.8 L MCV 80.0 MCH 26.5 MCHC 33.1 RDW 23.5 H Plt Count 144 L MPV 11.8 H Immature Gran % (Auto) 0.5 Neut % (Auto) 71.4 Lymph % (Auto) 12.3 L [place] % (Auto) 13.1 H Eos % (Auto) 1.9 Baso % (Auto) 0.8 Lymph # (Auto) 0.90 [place] # (Auto) 1.0 H Eos # (Auto) 0.1 Baso # (Auto) 0.1 Abs Immat Gran (auto) 0.04 H Absolute Neuts (auto) 5.2 Absolute Nucleated RBC 0.0 Nucleated RBC % 0.0 % Immature Plt Fraction 6.4 Sodium 133 L Potassium 4.5 Chloride 103 Carbon Dioxide 21 L Anion Gap 9 BUN 58 H Creatinine 2.70 H Estim Creat Clear Calc 12 Estimated GFR 17 L Glucose 162 H POC Capillary Glucose Calcium 8.5 Phosphorus 3.9 Magnesium 2.7 H Urine Color Britni Urine Appearance Cloudy H Urine pH
--- NOTE | 2020-06-28 09:22 | PM.PNCARD ---
Progress Note: A&P Assessment and Plan (1) Acute GI bleeding: Code(s): K92.2 - Gastrointestinal hemorrhage, unspecified Status: Acute Assessment and Plan: Continue to hold anticoagulants and antiplatelets for now. Gastroenterology evaluation. PPI. (2) Anemia: Code(s): D64.9 - Anemia, unspecified Status: Acute Assessment and Plan: Secondary to GI bleed (3) Atrial fibrillation: Qualifiers: Atrial fibrillation type: unspecified chronic Qualified Code(s): I48.20 - Chronic atrial fibrillation, unspecified Code(s): I48.91 - Unspecified atrial fibrillation Status: Chronic Assessment and Plan: Currently ventricular rates within normal limits. Continue to monitor on telemetry. Subjective Date/time seen: 06/28/20 09:22 Date of service: 06/28/2020 Interval history: Patient denies chest pain or shortness of breath. On telemetry, she is in atrial fibrillation with controlled ventricular response with heart rates in 70s. Exam Narrative: Exam Narrative: PHYSICAL EXAMINATION: GENERAL: Alert, oriented, no acute distress MENTAL STATUS: affect appropriate to mood EYES: Extraocular movements intact, pallor EARS: External ears appear normal, decreased hearing NOSE: Normal and patent, no discharge MOUTH: Mucous membranes moist, tongue normal NECK: Supple, no JVD CHEST: clear to auscultation HEART: Normal rate, irregular rhythm ABDOMEN: Soft, nontender NEUROLOGICAL: Alert, oriented, normal speech, no gross motor deficits MUSCULOSKELETAL: No major deformity, no amputation EXTREMITIES: No pedal edema, no clubbing, no cyanosis SKIN: no rash on the exposed area, no cyanosis PSYCHIATRIC: Normal mood, appropriate affect Objective Data Vital Signs Vital Signs: Vital Signs - 24 hr 06/27/20 10:00 06/27/20 12:20 06/27/20 12:21 Temperature 35.7 C L 35.7 C L Pulse Rate 64 62 62 Respiratory Rate 20 19 19 Blood Pressure 100/76 100/64 100/64 Pulse Oximetry 96 96 100 06/27/20 12:36 06/27/20 12:51 06/27/20 13:06 Temperature 35.7 C L 35.9 C L 35.4 C L Pulse Rate 61 60 74 Respiratory Rate 13 17 16 Blood Pressure 102/55 L 89/58 L 154/81 H Pulse Oximetry 97 95 93 06/27/20 13:21 06/27/20 13:31 06/27/20 13:36 Temperature 35.6 C L 35.6 C L 35.7 C L Pulse Rate 77 75 68 Respiratory Rate 22 H 20 22 H Blood Pressure 131/75 130/70 105/59 L Pulse Oximetry 93 96 100 06/27/20 13:41 06/27/20 14:00 06/27/20 16:00 Temperature 35.6 C L 36.1 C L Pulse Rate 75 68 67 Respiratory Rate 20 15 17 Blood Pressure 116/75 101/53 L 109/63 Pulse Oximetry 100 94 95 06/27/20 19:44 06/27/20 20:00 06/27/20 20:16 Temperature Pulse Rate 68 66 69 Respiratory Rate 15 Blood Pressure Pulse Oximetry 95 97 06/27/20 20:25 06/27/20 22:28 06/27/20 22:29 Temperature 35.6 C L 33.3 C L 33.4 C L Pulse Rate 63 70 Respiratory Rate 21 H Blood Pressure 97/57 L Pulse Oximetry 98 97 06/27/20 22:44 06/27/20 22:59 06/27/20 23:14 Temperature 33.9 C L 34.1 C L 34.4 C L Pulse Rate 62 70 Respiratory Rate 15 Blood Pressure Pulse Oximetry 97 97 06/28/20 00:00 06/28/20 00:19 06/28/20 01:14 Temperature 34.9 C L 35.2 C L 36.4 C Pulse Rate 76 68 76 Respiratory Rate 17 19 17 Blood Pressure 91/56 L Pulse Oximetry 98 98 95 06/28/20 02:00 06/28/20 03:55 06/28/20 04:00 Temperature 36.3 C L Pulse Rate 77 77 78 Respiratory Rate 17 Blood Pressure Pulse Oximetry 96 06/28/20 05:00 06/28/20 08:00 Temperature 36.6 C 36.4 C L Pulse Rate 76 74 Respiratory Rate 15 15 Blood Pressure 101/63 95/55 L Pulse Oximetry 98 95 Intake/Output Intake/Output: Intake & Output 06/25/20 06/26/20 06/27/20 06/28/20 23:59 23:59 23:59 23:59 Intake Total 2230.2 1089.8 Output Total 350 125 Balance 1880.2 964.8 Meds/Results Medications: Active Medications Generic Name Dose Route Start Last Admin Trade Name Freq PRN Reason Stop
--- NOTE | 2020-06-28 10:53 | P.CONNP_ITS ---
Assessment and Plan Assessment and plan (1) Chronic kidney disease, stage IV (severe): Code(s): N18.4 - Chronic kidney disease, stage 4 (severe) Status: Chronic Assessment and Plan: * per my discussion with and patient, her baseline creatinine runs ~ 2.2 - 3.0mg/dl * this was told to them by the storage engineer she saw in [place] - awaiting records from [place] to verify * presumably secondary to her diabetes, hypertension, vascular disease (CAD, hyperlipidemia, CVA...etc) and age * noted to be oliguric -- likely secondary to renal hypoperfusion from anemia/hypotension/volume depletion * renal ultrasound c/w CKD and urine electrolytes supportive therapy * follow trend of repeat labs and UOP (2) Syncope: Qualifiers: Syncope type: unspecified Qualified Code(s): R55 - Syncope and collapse Code(s): R55 - Syncope and collapse Status: Acute Assessment and Plan: * presumably due to severe anemia and associated volume depletion * follow for recurrence (3) Acute GI bleeding: Code(s): K92.2 - Gastrointestinal hemorrhage, unspecified Status: Acute Assessment and Plan: * s/p EGD with gastritis and spontaneous oozing treated with APC. * Gastroenterology following * follow trend of H/H * anticoagulation on hold (4) Hypertension: Qualifiers: Hypertension type: unspecified Qualified Code(s): I10 - Essential (primary) hypertension Code(s): I10 - Essential (primary) hypertension Status: Chronic Assessment and Plan: * on the lower end of normal * holding anti-HTN medications * follow hemodynamics (5) Atrial fibrillation: Qualifiers: Atrial fibrillation type: unspecified chronic Qualified Code(s): I48.20 - Chronic atrial fibrillation, unspecified Code(s): I48.91 - Unspecified atrial fibrillation Status: Chronic Assessment and Plan: * continue rate control startegy * anticoagulation on hold (6) Diabetes: Qualifiers: Diabetes mellitus complication status: without complication Diabetes mellitus buttermaker continuous churn insulin use: unspecified penitentiary insulin use status Diabetes mellitus type: type 2 Qualified Code(s): E11.9 - Type 2 diabetes mellitus without complications Code(s): E11.9 - Type 2 diabetes mellitus without complications Status: Chronic Assessment and Plan: * follow accuchecks * glycemic control Long extensive discussion with the patient as well as her at bedside ( greater than 20 minutes) regarding the events that led to her admission, her previous evaluation by her storage engineer in [place], and current plan of care / therapy since her admission. Will continue to follow History of Present Illness Reason for Consult Consult date: 06/28/20 Reason for consult: chronic renal failure Chief Complaint Chief complaint: GI bleed, syncope History of Present Illness Narrative: The patient is a 80 year old female with past medical history as outlined below who presented to [facility] after an episode of syncope. From review of the records as well as discussion with the patient and her at bedside, the patient has had at least 3 syncopal episode since April of 2020 without a clear etiology. She recently relocated to this area from [place]. Apparently, prior to her relocation, she was hospitalized in [place] about 2 weeks ago with a GI bleed. On the day of admission, the patient got into her car and suddenly felt lightheaded in association with n
--- NOTE | 2020-06-28 10:53 | PM.CNNEP ---
Assessment and Plan Assessment and plan (1) Chronic kidney disease, stage IV (severe): Code(s): N18.4 - Chronic kidney disease, stage 4 (severe) Status: Chronic Assessment and Plan: per my discussion with and patient, her baseline creatinine runs ~ 2.2 - 3.0mg/dl this was told to them by the typesetter apprentice she saw in [place] - awaiting records from [place] to verify presumably secondary to her diabetes, hypertension, vascular disease (CAD, hyperlipidemia, CVA...etc) and age noted to be oliguric -- likely secondary to renal hypoperfusion from anemia/hypotension/volume depletion renal ultrasound c/w CKD and urine electrolytes supportive therapy follow trend of repeat labs and UOP (2) Syncope: Qualifiers: Syncope type: unspecified Qualified Code(s): R55 - Syncope and collapse Code(s): R55 - Syncope and collapse Status: Acute Assessment and Plan: presumably due to severe anemia and associated volume depletion follow for recurrence (3) Acute GI bleeding: Code(s): K92.2 - Gastrointestinal hemorrhage, unspecified Status: Acute Assessment and Plan: s/p EGD with gastritis and spontaneous oozing treated with APC. Gastroenterology following follow trend of H/H anticoagulation on hold (4) Hypertension: Qualifiers: Hypertension type: unspecified Qualified Code(s): I10 - Essential (primary) hypertension Code(s): I10 - Essential (primary) hypertension Status: Chronic Assessment and Plan: on the lower end of normal holding anti-HTN medications follow hemodynamics (5) Atrial fibrillation: Qualifiers: Atrial fibrillation type: unspecified chronic Qualified Code(s): I48.20 - Chronic atrial fibrillation, unspecified Code(s): I48.91 - Unspecified atrial fibrillation Status: Chronic Assessment and Plan: continue rate control startegy anticoagulation on hold (6) Diabetes: Qualifiers: Diabetes mellitus complication status: without complication Diabetes mellitus penitentiary insulin use: unspecified penitentiary insulin use status Diabetes mellitus type: type 2 Qualified Code(s): E11.9 - Type 2 diabetes mellitus without complications Code(s): E11.9 - Type 2 diabetes mellitus without complications Status: Chronic Assessment and Plan: follow accuchecks glycemic control Long extensive discussion with the patient as well as her at bedside ( greater than 20 minutes) regarding the events that led to her admission, her previous evaluation by her typesetter apprentice in [place], and current plan of care / therapy since her admission. Will continue to follow History of Present Illness Reason for Consult Consult date: 06/28/20 Reason for consult: chronic renal failure Chief Complaint Chief complaint: GI bleed, syncope History of Present Illness Narrative: The patient is a 80 year old female with past medical history as outlined below who presented to [facility] after an episode of syncope. From review of the records as well as discussion with the patient and her at bedside, the patient has had at least 3 syncopal episode since April of 2020 without a clear etiology. She recently relocated to this area from [place]. Apparently, prior to her relocation, she was hospitalized in [place] about 2 weeks ago with a GI bleed. On the day of admission, the patient got into her car and suddenly felt lightheaded in association with nausea and apparently passed out. Apparently, she was unconscious for approximately 15 minutes before her was able to get her to the hospital. Prior to the syncopal episode aside from the a for mentioned nausea, she apparently had some mild shortness of breath as well but denies any chest pains, palpitations, abdominal pain, vomiting, diarrhea, or neurological deficits. She does report black
--- NOTE | 2020-06-28 11:15 | PCDIET ---
Nutrition Follow-Up Complete: Nutrition Diagnosis: Inadequate oral intake related to GI bleeding as evidenced by NPO diet. Nutrition Goal: Patient to meet estimated nutritional needs. Goal in progress. Patient has consumed 100% of meals thus far on full liquid diet. Patient very sleepy at time of visit and was falling asleep throughout discussion. Did report intentional 20 pound weight loss prior to admission. Denies having yet tried Ensure Compact which is ordered twice per day. Agree with continuing supplements until diet has further advanced. Last recorded weight is 69.3 kg which is significantly increased from last review. +I/O noted. Bowel Motility: +BM on 06/27/20 x 1. Labs Reviewed: Hgb (8.2), Hct (24.8), Glu (156), BUN (62), Cr (2.6), Na (131), Mg (2.7) Meds Noted: Novolog, Synthroid, Pantoprazole, NS at 50mL/hr Additional Notes: EGD showed gastritis with bleeding. Will continue to monitor with same goal. Nutrition Monitoring and Evaluation: Follow up every 3 days.
[2020-06-28 12:14] LABS: Glucose Point of Care 186 (65-105)
--- NOTE | 2020-06-28 12:36 | PM.IMPN ---
Progress Note: A&P Assessment and Plan (1) Syncope: Qualifiers: Syncope type: unspecified Qualified Code(s): R55 - Syncope and collapse Code(s): R55 - Syncope and collapse Status: Acute Assessment and Plan: Likely secondary to hypovolemia secondary to GI bleed and hypotension (2) Acute GI bleeding: Code(s): K92.2 - Gastrointestinal hemorrhage, unspecified Status: Acute Assessment and Plan: Patient is status post EGD was found to have gastritis Continue PPI (3) Acute on chronic blood loss anemia: Code(s): D62 - Acute posthemorrhagic anemia Status: Acute Assessment and Plan: Secondary to GI bleed (4) Anticoagulant long-term use: Code(s): Z79.01 - [facility] (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 of anticoagulants Status: Acute Assessment and Plan: Holding Plavix and novel anticoagulant (5) Renal insufficiency: Code(s): N28.9 - Disorder of kidney and ureter, unspecified Status: Acute Assessment and Plan: Unknown baseline Continue to monitor Avoid nephrotoxin Follow Nephrology recs (6) Hypertension: Qualifiers: Hypertension type: unspecified Qualified Code(s): I10 - Essential (primary) hypertension Code(s): I10 - Essential (primary) hypertension Status: Chronic Assessment and Plan: Stable (7) Atrial fibrillation: Qualifiers: Atrial fibrillation type: unspecified chronic Qualified Code(s): I48.20 - Chronic atrial fibrillation, unspecified Code(s): I48.91 - Unspecified atrial fibrillation Status: Chronic Assessment and Plan: Rate controlled Holding anticoagulation (8) GERD (gastroesophageal reflux disease): Qualifiers: Esophagitis presence: esophagitis presence not specified Qualified Code(s): K21.9 - Gastro-esophageal reflux disease without esophagitis Code(s): K21.9 - Gastro-esophageal reflux disease without esophagitis Status: Chronic Assessment and Plan: Continue PPI Subjective Date/time seen: 06/28/20 12:36 I feel very tired Review of Systems Review of Systems: Narrative: Patient states that she just feels very tired Exam Narrative: Exam Narrative: Laying in bed Const: General: comfortable, no acute distress, well developed, alert, awake and tired appearing Nutritional Appearance: average body habitus Orientation/consciousness: patient oriented x3 HENMT: Head: normal to inspection, normocephalic and atraumatic Ears: hearing grossly normal bilaterally Face and sinus: normal facial exam Eyes: General: appearance normal, both eyes and all related structures Pupils: Equal, round and reactive pupils present EOM: EOMs intact bilaterally Neck: Neck: full ROM, no lymphadenopathy and no JVD Thyroid: thyroid normal Lymphatic: no lymphadenopathy noted Resp: Effort & Inspection: normal respiratory effort and able to speak in complete sentences Auscultation: clear to auscultation bilaterally Cardio: Jugular venous distension: no JVD Rate: regular rate Rhythm: regular rhythm Heart sounds: S1 normal heart sound present and S2 normal heart sound present GI: GI Palp: Yes Soft to palpation and Yes No hepatosplenomegaly present : General: Yes deferred Skin: Rashes: no rashes Wounds: no wounds Neuro: General: patient oriented x3 and CN's II-XI intact bilaterally Cranial nerves: Yes CN's II-XII intact bilaterally and Yes Equal, round and reactive pupils present Cognition (Neuro): normal cognition Speech: normal speech Gait exam (Neuro): Normal gait present Motor exam (neuro): 5/5 motor strength present throughout Extrem: General: normal to inspection, full ROM, no joint enlargement and no pedal edema Objective Data Vital Signs Vital Signs: Vital Signs - 24 hr 06/27/20 12:51 06/27/20 13:06 06/27/20 13:21 Temperature 96.6 F L 95.7 F L 96.0 F L Pulse Rate 60 74 77 Respiratory Rate 17 16 22 H Blood Pressure 89
--- NOTE | 2020-06-28 14:03 | WPDGIPROGNO ---
Progress Note: A&P Assessment and Plan (1) Acute GI bleeding: Code(s): K92.2 - Gastrointestinal hemorrhage, unspecified Status: Acute Assessment and Plan: egd with gastritis and spontaneous oozing treated with APC, this in setting of pradaxa stable hb ok to start protonix 40mg bid after completing protonix drip bag advance diet and probably she is moving to floor today (2) Acute on chronic blood loss anemia: Code(s): D62 - Acute posthemorrhagic anemia Status: Acute Assessment and Plan: hb stable, holding pradaxa (3) Syncope: Qualifiers: Syncope type: unspecified Qualified Code(s): R55 - Syncope and collapse Code(s): R55 - Syncope and collapse Status: Acute (4) Anticoagulant long-term use: Code(s): Z79.01 - [facility] (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 of anticoagulants Status: Acute Assessment and Plan: on hold (5) Renal insufficiency: Code(s): N28.9 - Disorder of kidney and ureter, unspecified Status: Acute Assessment and Plan: nephrology on board (6) Atrial fibrillation: Qualifiers: Atrial fibrillation type: unspecified chronic Qualified Code(s): I48.20 - Chronic atrial fibrillation, unspecified Code(s): I48.91 - Unspecified atrial fibrillation Status: Chronic Subjective Date/time seen: 06/28/20 14:03 Interval history: no more obvious bleeding, still poor appetite and feeling tired Review of Systems Review of Systems: All systems reviewed & are unremarkable except as noted in HPI and below Exam Const: General: comfortable and no acute distress HENMT: General nose exam: Normal nares present Eyes: General: appearance normal, both eyes and all related structures Neck: Neck: supple Resp: Auscultation: clear to auscultation bilaterally Cardio: Rhythm: abnormal rhythm regularly irregular GI: Inspection: non-distended GI Palp: Yes Soft to palpation and No Tenderness to palpation present (GI) Auscultation: normal bowel sounds Skin: General skin exam: normal color Neuro: Speech: normal speech Motor exam (neuro): Normal motor muscle tone present throughout Extrem: General: normal to inspection Psych: Mental Status: mental status grossly normal Objective Data Vital Signs Vital Signs: Vital Signs - 24 hr 06/27/20 16:00 06/27/20 19:44 06/27/20 20:00 Temperature 97.0 F L Pulse Rate 67 68 66 Respiratory Rate 17 Blood Pressure 109/63 Pulse Oximetry 95 95 06/27/20 20:16 06/27/20 20:25 06/27/20 22:28 Temperature 96.0 F L 92.0 F L Pulse Rate 69 63 Respiratory Rate 15 21 H Blood Pressure 97/57 L Pulse Oximetry 97 98 06/27/20 22:29 06/27/20 22:44 06/27/20 22:59 Temperature 92.1 F L 93.1 F L 93.4 F L Pulse Rate 70 62 Respiratory Rate 15 Blood Pressure Pulse Oximetry 97 97 06/27/20 23:14 06/28/20 00:00 06/28/20 00:19 Temperature 93.9 F L 94.9 F L 95.3 F L Pulse Rate 70 76 68 Respiratory Rate 17 19 Blood Pressure 91/56 L Pulse Oximetry 97 98 98 06/28/20 01:14 06/28/20 02:00 06/28/20 03:55 Temperature 97.6 F 97.3 F L Pulse Rate 76 77 77 Respiratory Rate 17 17 Blood Pressure Pulse Oximetry 95 96 06/28/20 04:00 06/28/20 05:00 06/28/20 08:00 Temperature 97.8 F 97.5 F L Pulse Rate 78 76 74 Respiratory Rate 15 15 Blood Pressure 101/63 95/55 L Pulse Oximetry 98 95 06/28/20 08:45 Temperature Pulse Rate 72 Respiratory Rate 16 Blood Pressure Pulse Oximetry 95 Intake/Output Intake/Output: Intake & Output 06/25/20 06/26/20 06/27/20 06/28/20 23:59 23:59 23:59 23:59 Intake Total 2230.2 1709.8 Output Total 350 125 Balance 1880.2 1584.8 Meds/Results Medications: Active Medications Generic Name Dose Route Start Last Admin Trade Name Freq PRN Reason Stop Dose Admin Dextrose 12.5 gm 06/26/20 23:54 Dextrose 50% 25 Gm/50 Ml Syringe IV PUSH PRN PRN Hypoglycemia Protocol Glucagon 1 mg
[2020-06-28] MEDS: SODIUM CHLORIDE 0.9% IV 1,000 ML 50 ML IV CONT (16:09)
[2020-06-28 16:46] LABS: Glucose Point of Care 218 (65-105)
[2020-06-28] MEDS: INSULIN ASPART (*BKC) 100 UNITS/ML SUB-Q (17:24)
[2020-06-28 20:45] LABS: Glucose Point of Care 177 (65-105)
[2020-06-28] MEDS: PANTOPRAZOLE SODIUM IV 40 MG VIAL IV PUSH (22:16)
[2020-06-29] VITALS (7 sets, daily range): BP systolic 114–124; BP diastolic 65–71; PULSE 70–80; RESP 16–20; TEMP 35.9–36.3; O2SAT 94–97
[2020-06-29] MEDS: LEVOTHYROXINE SODIUM INJ 100 MCG/5 ML VIAL 62.5 MCG IV PUSH (05:30)
[2020-06-29] MEDS: PANTOPRAZOLE SODIUM IV 40 MG VIAL IV PUSH ×2 (07:46→20:56)
[2020-06-29 07:50] LABS: Glucose Point of Care 126 (65-105)
--- NOTE | 2020-06-29 10:31 | PM.PNCARD ---
Progress Note: A&P Additional Plan 80-year-old lady with: Chronic coronary artery disease and chronic AFib with which she has been essentially stable. All the cardiac recommendation at this time was to withhold anticoagulation and anti-platelet medications. She is not receiving any sedation or pain medication unclear to me as to the reason for her lethargy today. Will continue to follow during this hospitalization with you. Upon disposition as I mentioned in my original note she has made plans to establish care with a hide trimmer elsewhere. Og Dyer MD [facility] Subjective Date/time seen: Date of service:06/29/20 10:31 Interval history: Follow-up visit in this 80-year-old woman with: Coronary artery disease as well as chronic atrial fibrillation. Admitted to the hospital with syncopal episode that occurred presumably because of severe anemia/volume depletion patient has upper GI bleeding due to hemorrhagic gastritis. Anticoagulation and anti-platelet medications have been withdrawn. There does not appear to be any further bleeding. Patient is in ICU room 7. And is comfortable and without cardiac complaints but is much more lethargic and exhibiting slow mentation compared to 48 hours ago when I saw her. No specific complaints however Exam Narrative: Exam Narrative: PHYSICAL EXAMINATION: GENERAL: Alert, oriented, no acute distress MENTAL STATUS: affect appropriate to mood EYES: Extraocular movements intact, pallor EARS: External ears appear normal, decreased hearing NOSE: Normal and patent, no discharge MOUTH: Mucous membranes moist, tongue normal NECK: Supple, no JVD CHEST: clear to auscultation HEART: Normal rate, irregular rhythm ABDOMEN: Soft, nontender NEUROLOGICAL: Alert, oriented, normal speech, no gross motor deficits MUSCULOSKELETAL: No major deformity, no amputation EXTREMITIES: No pedal edema, no clubbing, no cyanosis SKIN: no rash on the exposed area, no cyanosis PSYCHIATRIC: Normal mood, appropriate affect Const: General: comfortable and no acute distress Other: Pleasant short statured elderly lady appears to be comfortable in no distress at this time HENMT: Mouth: Yes moist mucous membranes Eyes: Sclera: sclerae normal Pupils: Equal, round and reactive pupils present Neck: Neck: supple and no JVD Thyroid: thyroid normal Other: Carotid pulses are intact bilaterally there are no audible bruits over the neck Resp: Effort & Inspection: normal respiratory effort Auscultation: clear to auscultation bilaterally Cardio: Rhythm: abnormal rhythm irregularly irregular GI: Auscultation: normal bowel sounds Skin: General skin exam: normal color Neuro: Cranial nerves: Yes Equal, round and reactive pupils present Cognition (Neuro): normal cognition Extrem: Other: Very small amount of bipedal edema Objective Data Vital Signs Vital Signs: Vital Signs - 24 hr 06/28/20 16:00 06/28/20 20:00 06/29/20 00:00 Temperature 35.8 C L 36.1 C L 36.3 C L Pulse Rate 66 60 70 Respiratory Rate 14 22 H 20 Blood Pressure 103/68 101/76 114/71 Pulse Oximetry 94 92 94 06/29/20 07:36 06/29/20 07:55 Temperature 35.9 C L Pulse Rate 79 Respiratory Rate 16 Blood Pressure 124/69 Pulse Oximetry 95 95 Intake/Output Intake/Output: Intake & Output 06/26/20 06/27/20 06/28/20 06/29/20 23:59 23:59 23:59 23:59 Intake Total 2230.2 2957.4 150 Output Total 350 275 270 Balance 1880.2 2682.4 -120 Meds/Results Medications: Active Medications Generic Name Dose Route Start Last Admin Trade Name Freq PRN Reason Stop Dose Admin Dextrose 12.5 gm 06/26/20 23:54 Dextrose 50% 25 Gm/50 Ml Syringe IV PUSH PRN PRN Hypoglycemia Protocol Glucagon 1 mg 06/26/20 23:54 Glucagon For Inj 1 Mg Vial IM PRN PRN Hypoglycemia Protocol Dextrose 1,000 mls @ 100 mls/hr 06/26/20 23:54 Dextrose 5% 1,000 Ml IVPB PRN PRN Hypoglycemia Protocol
[2020-06-29 12:29] LABS: Glucose Point of Care 142 (65-105)
[2020-06-29] MEDS: SODIUM CHLORIDE 0.9% IV 1,000 ML 50 ML IV CONT (13:03)
--- NOTE | 2020-06-29 13:05 | PM.IMPN ---
Progress Note: A&P Assessment and Plan (1) Syncope: Qualifiers: Syncope type: unspecified Qualified Code(s): R55 - Syncope and collapse Code(s): R55 - Syncope and collapse Status: Acute Assessment and Plan: Likely secondary to hypovolemia secondary to GI bleed and hypotension (2) Acute GI bleeding: Code(s): K92.2 - Gastrointestinal hemorrhage, unspecified Status: Acute Assessment and Plan: Patient is status post EGD was found to have gastritis Continue PPI (3) Acute on chronic blood loss anemia: Code(s): D62 - Acute posthemorrhagic anemia Status: Acute Assessment and Plan: Secondary to GI bleed (4) Anticoagulant long-term use: Code(s): Z79.01 - [facility] (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 of anticoagulants Status: Acute Assessment and Plan: Holding Plavix and novel anticoagulant (5) Renal insufficiency: Code(s): N28.9 - Disorder of kidney and ureter, unspecified Status: Acute Assessment and Plan: Unknown baseline Continue to monitor Avoid nephrotoxin Follow Nephrology recs (6) Hypertension: Qualifiers: Hypertension type: unspecified Qualified Code(s): I10 - Essential (primary) hypertension Code(s): I10 - Essential (primary) hypertension Status: Chronic Assessment and Plan: Stable (7) Atrial fibrillation: Qualifiers: Atrial fibrillation type: unspecified chronic Qualified Code(s): I48.20 - Chronic atrial fibrillation, unspecified Code(s): I48.91 - Unspecified atrial fibrillation Status: Chronic Assessment and Plan: Rate controlled Holding anticoagulation (8) GERD (gastroesophageal reflux disease): Qualifiers: Esophagitis presence: esophagitis presence not specified Qualified Code(s): K21.9 - Gastro-esophageal reflux disease without esophagitis Code(s): K21.9 - Gastro-esophageal reflux disease without esophagitis Status: Chronic Assessment and Plan: Continue PPI Additional Plan . Subjective Date/time seen: 06/29/20 13:05 Interval history: Follow-up visit in this 80-year-old woman with: Coronary artery disease as well as chronic atrial fibrillation. Admitted to the hospital with syncopal episode that occurred presumably because of severe anemia/volume depletion patient has upper GI bleeding due to hemorrhagic gastritis. Anticoagulation and anti-platelet medications have been withdrawn. There does not appear to be any further bleeding. Patient is in ICU room 7. And is comfortable and without cardiac complaints but is much more lethargic and exhibiting slow mentation compared to 48 hours ago when I saw her. No specific complaints however Review of Systems Review of Systems: ROS unobtainable: Yes unobtainable due to medical condition (Patient seems to be confused today not able to give me any history) Exam Narrative: Exam Narrative: Laying in bed Const: General: cooperative, comfortable, no acute distress, well developed, alert, awake, tired appearing and other (Pale appearing) Nutritional Appearance: average body habitus and overweight Orientation/consciousness: patient oriented x3 HENMT: Head: normal to inspection, normocephalic and atraumatic Ears: hearing grossly normal bilaterally General nose exam: Normal external nose present Face and sinus: normal facial exam Mouth: Yes Normal oral and palatal mucosa present and Yes oropharynx normal Eyes: General: appearance normal, both eyes and all related structures Pupils: Equal, round and reactive pupils present EOM: EOMs intact bilaterally Neck: Neck: full ROM, no lymphadenopathy, supple and no JVD Thyroid: thyroid normal Lymphatic: no lymphadenopathy noted and lymphadenopathy not noted Resp: Effort & Inspection: normal respiratory effort, able to speak in complete sentences and tachypneic Auscultation: clear to auscultation bilaterally and diminished lung sounds
--- NOTE | 2020-06-29 15:19 | PCDIET ---
This patient, Carol Ken, was received from ICU 7 on 06/29/20 at 1520. Patient/family oriented to unit policies and routines
--- NOTE | 2020-06-29 15:24 | WPDGIPROGNO ---
Progress Note: A&P Assessment and Plan (1) Acute GI bleeding: Code(s): K92.2 - Gastrointestinal hemorrhage, unspecified Status: Acute Assessment and Plan: egd with gastritis and spontaneous oozing treated with APC, this in setting of pradaxa which is on hold now stable hb protonix 40mg bid (ok to change to oral) tolerating diet (2) Acute on chronic blood loss anemia: Code(s): D62 - Acute posthemorrhagic anemia Status: Acute Assessment and Plan: hb stable, holding pradaxa (3) Syncope: Qualifiers: Syncope type: unspecified Qualified Code(s): R55 - Syncope and collapse Code(s): R55 - Syncope and collapse Status: Acute (4) Anticoagulant long-term use: Code(s): Z79.01 - [facility] (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 of anticoagulants Status: Acute Assessment and Plan: on hold (5) Renal insufficiency: Code(s): N28.9 - Disorder of kidney and ureter, unspecified Status: Acute Assessment and Plan: nephrology on board (6) Atrial fibrillation: Qualifiers: Atrial fibrillation type: unspecified chronic Qualified Code(s): I48.20 - Chronic atrial fibrillation, unspecified Code(s): I48.91 - Unspecified atrial fibrillation Status: Chronic Assessment and Plan: hold blood thinners, probably ok to resume in ~10 days but will need to monitor hb as outpatient Subjective Date/time seen: 06/29/20 15:24 Interval history: tolerating diet, no signs of bleeding still in icu but she is going to floor Review of Systems Review of Systems: All systems reviewed & are unremarkable except as noted in HPI and below Exam Const: General: comfortable and no acute distress HENMT: General nose exam: Normal nares present Eyes: General: appearance normal, both eyes and all related structures Neck: Neck: supple Resp: Auscultation: clear to auscultation bilaterally Cardio: Rhythm: abnormal rhythm regularly irregular GI: Inspection: non-distended GI Palp: Yes Soft to palpation and No Tenderness to palpation present (GI) Auscultation: normal bowel sounds Skin: General skin exam: normal color Neuro: Speech: normal speech Motor exam (neuro): Normal motor muscle tone present throughout Extrem: General: normal to inspection Psych: Mental Status: mental status grossly normal Objective Data Vital Signs Vital Signs: Vital Signs - 24 hr 06/28/20 16:00 06/28/20 20:00 06/29/20 00:00 Temperature 96.5 F L 96.9 F L 97.4 F L Pulse Rate 66 60 70 Respiratory Rate 14 22 H 20 Blood Pressure 103/68 101/76 114/71 Pulse Oximetry 94 92 94 06/29/20 07:36 06/29/20 07:55 06/29/20 11:45 Temperature 96.7 F L Pulse Rate 79 Respiratory Rate 16 Blood Pressure 124/69 Pulse Oximetry 95 95 95 Intake/Output Intake/Output: Intake & Output 06/26/20 06/27/20 06/28/20 06/29/20 23:59 23:59 23:59 23:59 Intake Total 2230.2 2957.4 1234.2 Output Total 350 275 270 Balance 1880.2 2682.4 964.2 Meds/Results Medications: Active Medications Generic Name Dose Route Start Last Admin Trade Name Freq PRN Reason Stop Dose Admin Dextrose 12.5 gm 06/26/20 23:54 Dextrose 50% 25 Gm/50 Ml Syringe IV PUSH PRN PRN Hypoglycemia Protocol Glucagon 1 mg 06/26/20 23:54 Glucagon For Inj 1 Mg Vial IM PRN PRN Hypoglycemia Protocol Dextrose 1,000 mls @ 100 mls/hr 06/26/20 23:54 Dextrose 5% 1,000 Ml IVPB PRN PRN Hypoglycemia Protocol Sodium Chloride 1,000 mls @ 50 mls/hr 06/27/20 21:55 06/29/20 13:03 Normal Saline Iv IV CONT 50 mls/hr .Q20H JAKCI Administration Insulin Aspart 2 - 5 units 06/27/20 17:00 06/29/20 12:29 Insulin Aspart (*Bkc) 100 Units/Ml SUB-Q Not Given TIDWM JACKI Protocol Levothyroxine Sodium 62.5 mcg 06/27/20 06:30 06/29/20 05:30 Levothyroxine Sodium Inj 100 Mcg/5 Ml Vial IV PUSH 62.5 mcg DAILY@0630 JACKI Administration Onda
--- NOTE | 2020-06-29 16:40 | PM.PNNEP ---
Progress Note: A&P Assessment and Plan (1) ALEX (acute kidney injury): Code(s): N17.9 - Acute kidney failure, unspecified Status: Acute Assessment and Plan: upon further review of records, the patient had a normal creatinine in January 2020 per my discussion with and patient yesterday, they reported her baseline creatinine runs ~ 2.2 - 3.0mg/dl -- I suspect this was ALEX/ARF during her previous hospitalization in [place] (?) however, her renal ultrasound appears consistent with CKD urine electrolytes suggest pre-renal azotemia risk factors for CKD diabetes, hypertension, vascular disease (CAD, hyperlipidemia, CVA...etc) and age oliguria persists -- likely secondary to renal hypoperfusion from anemia/hypotension/volume depletion follow trend of repeat labs and UOP (2) Syncope: Qualifiers: Syncope type: unspecified Qualified Code(s): R55 - Syncope and collapse Code(s): R55 - Syncope and collapse Status: Acute Assessment and Plan: presumably due to severe anemia and associated volume depletion follow for recurrence (3) Acute GI bleeding: Code(s): K92.2 - Gastrointestinal hemorrhage, unspecified Status: Acute Assessment and Plan: s/p EGD with gastritis and spontaneous oozing treated with APC. Gastroenterology following follow trend of H/H anticoagulation on hold (4) Hypertension: Qualifiers: Hypertension type: unspecified Qualified Code(s): I10 - Essential (primary) hypertension Code(s): I10 - Essential (primary) hypertension Status: Chronic Assessment and Plan: appears to be doing better holding anti-HTN medications follow hemodynamics (5) Atrial fibrillation: Qualifiers: Atrial fibrillation type: unspecified chronic Qualified Code(s): I48.20 - Chronic atrial fibrillation, unspecified Code(s): I48.91 - Unspecified atrial fibrillation Status: Chronic Assessment and Plan: continue rate control startegy anticoagulation on hold Cardiology following (6) Diabetes: Qualifiers: Diabetes mellitus type: type 2 Diabetes mellitus extermination supervisor insulin use: unspecified extermination supervisor insulin use status Diabetes mellitus complication status: without complication Qualified Code(s): E11.9 - Type 2 diabetes mellitus without complications Code(s): E11.9 - Type 2 diabetes mellitus without complications Status: Chronic Assessment and Plan: follow accuchecks on SSI Will continue to follow. Subjective Date/time seen: 06/29/20 16:40 Transferred out of ICU; states she is feeling reasonably well; still not making much urine but otherwise does not appear in any distress; records from psychologist counseling in [place] reviewed (and note her kidney function being better than what was thought; seems a bit more sleepy today that when I saw her yesterday. Exam Narrative: Exam Narrative: General: WD/WN female in NAD Heart: normal S1 and S2; IRRR no rub Lungs: clear to auscultation Abdomen: soft, nontender, nondistended, positive bowel sounds Extremities: no cyanosis or clubbing; no edema Skin: warm and dry Objective Data Vital Signs Vital Signs: Vital Signs Temp Pulse Resp BP Pulse Ox 06/29/20 15:54 35.9 C L 80 18 121/65 97 06/29/20 11:45 95 06/29/20 07:55 95 06/29/20 07:36 35.9 C L 79 16 124/69 95 06/29/20 00:00 36.3 C L 70 20 114/71 94 06/28/20 20:00 36.1 C L 60 22 H 101/76 92 Intake/Output Intake/Output: Intake & Output 06/26/20 06/27/20 06/28/20 06/29/20 23:59 23:59 23:59 23:59 Intake Total 2230.2 2957.4 1354.2 Output Total 350 275 545 Balance 1880.2 2682.4 809.2 Meds/Results Medications: Active Medications Generic Name Dose Route Start Last Admin Trade Name Freq PRN Reason Stop Dose Admin Dextrose 12.5 gm 06/26/20 23:54 Dextrose 50% 25 Gm/50 Ml Syringe IV PUSH PRN PRN
--- NOTE | 2020-06-29 16:40 | P.PNNP_ITS ---
Progress Note: A&P Assessment and Plan (1) ALEX (acute kidney injury): Code(s): N17.9 - Acute kidney failure, unspecified Status: Acute Assessment and Plan: * upon further review of records, the patient had a normal creatinine in January 2020 * per my discussion with and patient yesterday, they reported her baseline creatinine runs ~ 2.2 - 3.0mg/dl -- I suspect this was ALEX/ARF during her previous hospitalization in [place] (?) * however, her renal ultrasound appears consistent with CKD * urine electrolytes suggest pre-renal azotemia * risk factors for CKD diabetes, hypertension, vascular disease (CAD, hyperlipidemia, CVA...etc) and age * oliguria persists -- likely secondary to renal hypoperfusion from anemia/hypotension/volume depletion * follow trend of repeat labs and UOP (2) Syncope: Qualifiers: Syncope type: unspecified Qualified Code(s): R55 - Syncope and collapse Code(s): R55 - Syncope and collapse Status: Acute Assessment and Plan: * presumably due to severe anemia and associated volume depletion * follow for recurrence (3) Acute GI bleeding: Code(s): K92.2 - Gastrointestinal hemorrhage, unspecified Status: Acute Assessment and Plan: * s/p EGD with gastritis and spontaneous oozing treated with APC. * Gastroenterology following * follow trend of H/H * anticoagulation on hold (4) Hypertension: Qualifiers: Hypertension type: unspecified Qualified Code(s): I10 - Essential (primary) hypertension Code(s): I10 - Essential (primary) hypertension Status: Chronic Assessment and Plan: * appears to be doing better * holding anti-HTN medications * follow hemodynamics (5) Atrial fibrillation: Qualifiers: Atrial fibrillation type: unspecified chronic Qualified Code(s): I48.20 - Chronic atrial fibrillation, unspecified Code(s): I48.91 - Unspecified atrial fibrillation Status: Chronic Assessment and Plan: * continue rate control startegy * anticoagulation on hold * Cardiology following (6) Diabetes: Qualifiers: Diabetes mellitus type: type 2 Diabetes mellitus customer training specialist insulin use: unspecified shelter insulin use status Diabetes mellitus complication status: without complication Qualified Code(s): E11.9 - Type 2 diabetes mellitus without complications Code(s): E11.9 - Type 2 diabetes mellitus without complications Status: Chronic Assessment and Plan: * follow accuchecks * on SSI Will continue to follow. Subjective Date/time seen: 06/29/20 16:40 Transferred out of ICU; states she is feeling reasonably well; still not making much urine but otherwise does not appear in any distress; records from senior hris analyst in [place] reviewed (and note her kidney function being better than what was thought; seems a bit more sleepy today that when I saw her yesterday. Exam Narrative: Exam Narrative: General: WD/WN female in NAD Heart: normal S1 and S2; IRRR no rub Lungs: clear to auscultation Abdomen: soft, nontender, nondistended, positive bowel sounds Extremities: no cyanosis or clubbing; no edema Skin: warm and dry Objective Data Vital Signs Vital Signs: Vital Signs Temp Pulse Resp BP Pulse Ox 06/29/20 15:54 35.9 C L 80 18 121/65 97 06/29/20 11:45 95 06/29/20 07:55 95 06/29/20 07:36 35.9 C L 79
[2020-06-29 16:56] LABS: Glucose Point of Care 142 (65-105)
[2020-06-29 21:28] LABS: Glucose Point of Care 134 (65-105)
[2020-06-30 04:47] VITALS: BP 137/77; PULSE 72; RESP 20; TEMP 35.8; O2SAT 95
[2020-06-30] MEDS: LEVOTHYROXINE SODIUM INJ 100 MCG/5 ML VIAL 62.5 MCG IV PUSH (05:30)
[2020-06-30 07:27] LABS: Glucose Point of Care 113 (65-105)
[2020-06-30 07:52] LABS: Albumin Level 3.3 g/dL (3.5-5.1); Anion Gap 9 mmol/L (8-16); Blood Urea Nitrogen 55 mg/dL (7-17); Calcium 8.6 mg/dL (8.4-10.2); Carbon Dioxide 18 mmol/L (22-30); Chloride 106 mmol/L (98-107); Estimated CRCL calculation 20 ml/min; Estimated Glomerular Filt Rate 24; Glucose 119 mg/dL (65-105); Phosphorus 4.6 mg/dL (2.5-4.5); Sodium 133 mmol/L (137-145)
[2020-06-30] MEDS: PANTOPRAZOLE SODIUM IV 40 MG VIAL IV PUSH (08:28)
[2020-06-30 08:34] VITALS: O2SAT 95
[2020-06-30 09:41] VITALS: O2SAT 97
[2020-06-30] MEDS: SODIUM CHLORIDE 0.9% IV 1,000 ML 50 ML IV CONT (10:21)
--- NOTE | 2020-06-30 10:52 | PM.PNCARD ---
Progress Note: A&P Assessment and Plan (1) Acute GI bleeding: Code(s): K92.2 - Gastrointestinal hemorrhage, unspecified Status: Acute Assessment and Plan: Continue to hold anticoagulants and antiplatelets for now. Gastroenterology evaluation. PPI. EGD shows gastritis. She also has Pérez catheter with bloody urine. CBC was not checked in 2 days. Last CBC 2 days ago hemoglobin was 8. Check CBC today. (2) Anemia: Code(s): D64.9 - Anemia, unspecified Status: Acute Assessment and Plan: Secondary to GI bleed. Keep hemoglobin above 7. will benefit from IV iron to replenish iron stores quickly. (3) Atrial fibrillation: Qualifiers: Atrial fibrillation type: unspecified chronic Qualified Code(s): I48.20 - Chronic atrial fibrillation, unspecified Code(s): I48.91 - Unspecified atrial fibrillation Status: Chronic Assessment and Plan: Currently ventricular rates within normal limits. Patient is not on telemetry any more. Blood pressure and heart rate within normal. patient is not on AV tamara blocking agents or blood pressure medications. Subjective Date/time seen: Date of /29/21 10:52 laying in bed, denies chest pain shortness of breath. She feels very cold. She has Pérez catheter and Bloody urine. Exam Narrative: Exam Narrative: PHYSICAL EXAMINATION: GENERAL: Alert, oriented, no acute distress MENTAL STATUS: affect appropriate to mood EYES: Extraocular movements intact, pallor EARS: External ears appear normal, decreased hearing NOSE: Normal and patent, no discharge MOUTH: Mucous membranes moist, tongue normal NECK: Supple, no JVD CHEST: clear to auscultation HEART: Normal rate, irregular rhythm ABDOMEN: Soft, nontender NEUROLOGICAL: Alert, oriented, normal speech, no gross motor deficits MUSCULOSKELETAL: No major deformity, no amputation EXTREMITIES: No pedal edema, no clubbing, no cyanosis SKIN: no rash on the exposed area, no cyanosis PSYCHIATRIC: Normal mood, appropriate affect Const: General: comfortable and no acute distress Other: Pleasant short statured elderly lady appears to be comfortable in no distress at this time HENMT: Mouth: Yes moist mucous membranes Eyes: Sclera: sclerae normal Pupils: Equal, round and reactive pupils present Neck: Neck: supple and no JVD Thyroid: thyroid normal Other: Carotid pulses are intact bilaterally there are no audible bruits over the neck Resp: Effort & Inspection: normal respiratory effort Auscultation: clear to auscultation bilaterally Cardio: Rhythm: abnormal rhythm irregularly irregular GI: Auscultation: normal bowel sounds Skin: General skin exam: normal color Neuro: Cranial nerves: Yes Equal, round and reactive pupils present Cognition (Neuro): normal cognition Extrem: Other: Very small amount of bipedal edema Objective Data Vital Signs Vital Signs: Vital Signs - 24 hr 06/29/20 11:45 06/29/20 15:54 06/29/20 20:44 Temperature 35.9 C L 36.1 C L Pulse Rate 80 74 Respiratory Rate 18 16 Blood Pressure 121/65 121/66 Pulse Oximetry 95 97 97 06/29/20 21:00 06/30/20 04:47 06/30/20 08:34 Temperature 35.8 C L Pulse Rate 72 Respiratory Rate 20 Blood Pressure 137/77 Pulse Oximetry 97 95 95 06/30/20 09:41 Temperature Pulse Rate Respiratory Rate Blood Pressure Pulse Oximetry 97 Intake/Output Intake/Output: Intake & Output 06/27/20 06/28/20 06/29/20 06/30/20 23:59 23:59 23:59 23:59 Intake Total 2230.2 2957.4 1354.2 1290 Output Total 350 275 545 300 Balance 1880.2 2682.4 809.2 990 Meds/Results Medications: Active Medications Generic Name Dose Route Start Last Admin Trade Name Freq PRN Reason Stop Dose Admin Dextrose 12.5 gm 06/26/20 23:54 Dextrose 50% 25 Gm/50 Ml Syringe IV PUSH PRN PRN Hypoglycemia Protocol Glucagon 1 mg 06/26/20 23:54 Glucagon For Inj 1 Mg Vial IM UT
[2020-06-30 11:13] LABS: Basophils Percent Auto 0.5 % (0.2-1.2); Eosinophils Absolute Auto 0.2 K/mm3 (0-0.3); Eosinophils Percent Auto 1.8 % (0-4.4); Hematocrit 26.2 % (37.0-47.0); Hemoglobin 8.3 g/dL (12.0-15.0); Immature Granulocyte Absolute 0.03 K/mm3 (0.00-0.031); Immature Granulocyte Percent A 0.4 % (0-0.5); Immature Platelet Fraction Pct 5.9 % (0.9-11.2); Lymphocytes Absolute Auto 1.06 K/mm3 (0.9-3.2); Lymphocytes Percent Auto 12.7 % (18.3-44.2); Mean Corpuscular HGB Conc 31.7 g/dl (32-36); Mean Corpuscular Volume 85.3 fl (80-100); Mean Platelet Volume 12.1 fl (7.4-10.4); Monocytes Absolute Auto 1.3 K/mm3 (0.1-0.6); Monocytes Percent Auto 15.8 % (2.6-8.5); Neutrophils Absolute Auto 5.7 K/mm3 (1.3-6.7); Neutrophils Percent Auto 68.8 % (45.5-73.1); Platelet Count Result 151 k/mm3 (150-375); Red Blood Count 3.07 M/mm3 (4.2-5.4); Red Cell Distribution Width 24.3 % (11.5-14.5); White Blood Count 8.3 K/mm3 (4.5-10.0)
--- NOTE | 2020-06-30 11:13 | PCNFU ---
Nutrition Follow-Up Complete: Inadequate oral intake related to GI bleeding as evidenced by NPO diet. Goal: Patient to meet estimated nutritional needs. Progressing towards goal, we will continue current goal. Pt current nutrition is Heart Healthy/DB. Nutrition recommendation: Frozen Nutritional Treat BID. Last recorded weight is 72.6 kg,up from 61.7 kg on admit. Bowel Motility:+BM reported 06/28 Labs Reviewed:Glu 119,NA 133,GFR 24,Alb 3.1 Meds Noted:NovoLog, Synthroid, NS, Protonix. Additional Notes: Patient seen today for nutrition follow up. Oral Intake about 25% of meals. Spoke with patient today,she does not like ensure. MD orders for frozen nutritional treat ice cream BID which will provide patient with 300 kcals and 9 gms protein. Encouraged po intake. Agree with diet orders. Monitoring: Follow up every 5 days.
[2020-06-30 11:42] LABS: Glucose Point of Care 146 (65-105)
--- NOTE | 2020-06-30 12:00 | PM.IMPN ---
Progress Note: A&P Assessment and Plan (1) Syncope: Qualifiers: Syncope type: unspecified Qualified Code(s): R55 - Syncope and collapse Code(s): R55 - Syncope and collapse Status: Acute Assessment and Plan: Likely secondary to hypovolemia secondary to GI bleed and hypotension PATIENT IS STATUS POST BLOOD TRANSFUSION SUPPORTIVE CARE NO NEW EVENTS (2) Acute GI bleeding: Code(s): K92.2 - Gastrointestinal hemorrhage, unspecified Status: Acute Assessment and Plan: Patient is status post EGD was found to have gastritis Continue PPI (3) Acute on chronic blood loss anemia: Code(s): D62 - Acute posthemorrhagic anemia Status: Acute Assessment and Plan: Secondary to GI bleed (4) Anticoagulant long-term use: Code(s): Z79.01 - halfway (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 of anticoagulants Status: Acute Assessment and Plan: Holding Plavix and novel anticoagulant (5) Renal insufficiency: Code(s): N28.9 - Disorder of kidney and ureter, unspecified Status: Acute Assessment and Plan: Unknown baseline Continue to monitor Avoid nephrotoxin Follow Nephrology recs (6) Hypertension: Qualifiers: Hypertension type: unspecified Qualified Code(s): I10 - Essential (primary) hypertension Code(s): I10 - Essential (primary) hypertension Status: Chronic Assessment and Plan: Stable (7) Atrial fibrillation: Qualifiers: Atrial fibrillation type: unspecified chronic Qualified Code(s): I48.20 - Chronic atrial fibrillation, unspecified Code(s): I48.91 - Unspecified atrial fibrillation Status: Chronic Assessment and Plan: Rate controlled Holding anticoagulation (8) GERD (gastroesophageal reflux disease): Qualifiers: Esophagitis presence: esophagitis presence not specified Qualified Code(s): K21.9 - Gastro-esophageal reflux disease without esophagitis Code(s): K21.9 - Gastro-esophageal reflux disease without esophagitis Status: Chronic Assessment and Plan: Continue PPI Additional Plan . Subjective Date/time seen: 06/30/20 12:00 I FEEL WELL Interval history: tolerating diet, no signs of bleeding PARTICIPATING IN PT OT PATIENT IS REQUIRING SUPPLEMENTAL OXYGEN AT REST 2 L SATURATING AT 92% Review of Systems Review of Systems: Narrative: PATIENT STATES THAT SHE FEELS GOOD TODAY All systems reviewed & are unremarkable except as noted in HPI and below Exam Narrative: Exam Narrative: SITTING IN CHAIR PARTICIPATING WITH OT IN THERAPY Const: General: cooperative, comfortable, no acute distress, well developed, alert, awake, tired appearing and other (Pale appearing) Nutritional Appearance: average body habitus and overweight Orientation/consciousness: patient oriented x3 HENMT: Head: normal to inspection, normocephalic and atraumatic Ears: hearing grossly normal bilaterally General nose exam: Normal external nose present Face and sinus: normal facial exam Mouth: Yes Normal oral and palatal mucosa present and Yes oropharynx normal Eyes: General: appearance normal, both eyes and all related structures Pupils: Equal, round and reactive pupils present EOM: EOMs intact bilaterally Neck: Neck: full ROM, no lymphadenopathy, supple and no JVD Thyroid: thyroid normal Lymphatic: no lymphadenopathy noted and lymphadenopathy not noted Resp: Effort & Inspection: normal respiratory effort and able to speak in complete sentences Auscultation: clear to auscultation bilaterally and diminished lung sounds Cardio: Jugular venous distension: no JVD Rate: regular rate Rhythm: regular rhythm and abnormal rhythm irregularly irregular Heart sounds: S1 normal heart sound present, S2 normal heart sound present and no murmurs GI: Inspection: normal to inspection Auscultation: normal bowel sounds Rectal Exam: heme positive stool : General: Yes deferred Skin: Gen
--- NOTE | 2020-06-30 15:37 | P.PNNP_ITS ---
Progress Note: A&P Assessment and Plan (1) ALEX (acute kidney injury): Code(s): N17.9 - Acute kidney failure, unspecified Status: Acute Assessment and Plan: * upon further review of records, the patient had a normal creatinine in January 2020 * per my discussion with and patient, they reported her baseline creatinine runs ~ 2.2 - 3.0mg/dl -- I suspect this was ALEX/ARF during her previous hospitalization in [place] (?) * however, her renal ultrasound appears consistent with CKD * suspect acute injury secondary to renal hypoperfusion from anemia/hyp otension/volume depletion possibly worsened by UTI * urine electrolytes suggest pre-renal azotemia * risk factors for CKD diabetes, hypertension, vascular disease (CAD, hyperlipidemia, CVA...etc) and age * follow trend of repeat labs and UOP (2) Syncope: Qualifiers: Syncope type: unspecified Qualified Code(s): R55 - Syncope and collapse Code(s): R55 - Syncope and collapse Status: Acute Assessment and Plan: * presumably due to severe anemia and associated volume depletion * follow for recurrence (3) Acute GI bleeding: Code(s): K92.2 - Gastrointestinal hemorrhage, unspecified Status: Acute Assessment and Plan: * s/p EGD with gastritis and spontaneous oozing treated with APC. * Gastroenterology following * follow trend of H/H * anticoagulation on hold (4) Hypertension: Qualifiers: Hypertension type: unspecified Qualified Code(s): I10 - Essential (primary) hypertension Code(s): I10 - Essential (primary) hypertension Status: Chronic Assessment and Plan: * appears to be doing better * holding anti-HTN medications * follow hemodynamics (5) Atrial fibrillation: Qualifiers: Atrial fibrillation type: unspecified chronic Qualified Code(s): I48.20 - Chronic atrial fibrillation, unspecified Code(s): I48.91 - Unspecified atrial fibrillation Status: Chronic Assessment and Plan: * continue rate control startegy * anticoagulation on hold * Cardiology following (6) UTI (urinary tract infection): Code(s): N39.0 - Urinary tract infection, site not specified Status: Acute Assessment and Plan: * urine culture with Klebsiella and E.coli * start antibiotics(?) (7) Diabetes: Qualifiers: Diabetes mellitus complication status: without complication Diabetes mellitus long term care administrator insulin use: unspecified long term care administrator insulin use status Diabetes mellitus type: type 2 Qualified Code(s): E11.9 - Type 2 diabetes mellitus without complications Code(s): E11.9 - Type 2 diabetes mellitus without complications Status: Chronic Assessment and Plan: * follow accuchecks * on SSI Will continue to follow. Subjective Date/time seen: 06/30/20 15:37 Other than generalized weakness, she appears in no acute distress; no issues or events overnight or earlier this AM; no other complaints voiced at the time of my visit. Exam Narrative: Exam Narrative: General: WD/WN female in NAD Heart: normal S1 and S2; IRRR no rub Lungs: clear to auscultation Abdomen: soft, nontender, nondistended, positive bowel sounds Extremities: no cyanosis or clubbing; no edema Skin: warm and intact Objective Data Vital Signs Vital Signs: Vital Signs Temp Pulse Resp BP Pulse Ox 06/30/20 09:41 97
--- NOTE | 2020-06-30 15:37 | PM.PNNEP ---
Progress Note: A&P Assessment and Plan (1) ALEX (acute kidney injury): Code(s): N17.9 - Acute kidney failure, unspecified Status: Acute Assessment and Plan: upon further review of records, the patient had a normal creatinine in January 2020 per my discussion with and patient, they reported her baseline creatinine runs ~ 2.2 - 3.0mg/dl -- I suspect this was ALEX/ARF during her previous hospitalization in [place] (?) however, her renal ultrasound appears consistent with CKD suspect acute injury secondary to renal hypoperfusion from anemia/hypotension/volume depletion possibly worsened by UTI urine electrolytes suggest pre-renal azotemia risk factors for CKD diabetes, hypertension, vascular disease (CAD, hyperlipidemia, CVA...etc) and age follow trend of repeat labs and UOP (2) Syncope: Qualifiers: Syncope type: unspecified Qualified Code(s): R55 - Syncope and collapse Code(s): R55 - Syncope and collapse Status: Acute Assessment and Plan: presumably due to severe anemia and associated volume depletion follow for recurrence (3) Acute GI bleeding: Code(s): K92.2 - Gastrointestinal hemorrhage, unspecified Status: Acute Assessment and Plan: s/p EGD with gastritis and spontaneous oozing treated with APC. Gastroenterology following follow trend of H/H anticoagulation on hold (4) Hypertension: Qualifiers: Hypertension type: unspecified Qualified Code(s): I10 - Essential (primary) hypertension Code(s): I10 - Essential (primary) hypertension Status: Chronic Assessment and Plan: appears to be doing better holding anti-HTN medications follow hemodynamics (5) Atrial fibrillation: Qualifiers: Atrial fibrillation type: unspecified chronic Qualified Code(s): I48.20 - Chronic atrial fibrillation, unspecified Code(s): I48.91 - Unspecified atrial fibrillation Status: Chronic Assessment and Plan: continue rate control startegy anticoagulation on hold Cardiology following (6) UTI (urinary tract infection): Code(s): N39.0 - Urinary tract infection, site not specified Status: Acute Assessment and Plan: urine culture with Klebsiella and E.coli start antibiotics(?) (7) Diabetes: Qualifiers: Diabetes mellitus complication status: without complication Diabetes mellitus half-way insulin use: unspecified meterman insulin use status Diabetes mellitus type: type 2 Qualified Code(s): E11.9 - Type 2 diabetes mellitus without complications Code(s): E11.9 - Type 2 diabetes mellitus without complications Status: Chronic Assessment and Plan: follow accuchecks on SSI Will continue to follow. Subjective Date/time seen: 06/30/20 15:37 Other than generalized weakness, she appears in no acute distress; no issues or events overnight or earlier this AM; no other complaints voiced at the time of my visit. Exam Narrative: Exam Narrative: General: WD/WN female in NAD Heart: normal S1 and S2; IRRR no rub Lungs: clear to auscultation Abdomen: soft, nontender, nondistended, positive bowel sounds Extremities: no cyanosis or clubbing; no edema Skin: warm and intact Objective Data Vital Signs Vital Signs: Vital Signs Temp Pulse Resp BP Pulse Ox 06/30/20 09:41 97 06/30/20 08:34 95 06/30/20 04:47 35.8 C L 72 20 137/77 95 06/29/20 21:00 97 06/29/20 20:44 36.1 C L 74 16 121/66 97 Intake/Output Intake/Output: Intake & Output 06/27/20 06/28/20 06/29/20 06/30/20 23:59 23:59 23:59 23:59 Intake Total 2230.2 2957.4 1354.2 1390 Output Total 350 275 545 300 Balance 1880.2 2682.4 809.2 1090 Meds/Results Medications: Active Medications Generic Name Dose Route Start Last Admin Trade Name Freq PRN Reason Stop Dose Admin Dextrose 12.5 gm 06/26/20 23:54 Dextrose 50% 25 Gm/50 M
[2020-06-30 16:30] VITALS: BP 113/62; PULSE 76; RESP 18; TEMP 36.3; O2SAT 100
--- NOTE | 2020-06-30 16:50 | WPDGIPROGNO ---
Progress Note: A&P Assessment and Plan (1) Acute GI bleeding: Code(s): K92.2 - Gastrointestinal hemorrhage, unspecified Status: Acute Assessment and Plan: egd with gastritis and spontaneous oozing treated with APC, this in setting of pradaxa which is on hold now stable hb protonix 40mg bid- will switch to oral tolerating diet will follow from [place], call if questions (2) Acute on chronic blood loss anemia: Code(s): D62 - Acute posthemorrhagic anemia Status: Acute Assessment and Plan: hb stable, holding pradaxa (3) Syncope: Qualifiers: Syncope type: unspecified Qualified Code(s): R55 - Syncope and collapse Code(s): R55 - Syncope and collapse Status: Acute Assessment and Plan: probably from jolene, dehydration and gib (4) Anticoagulant long-term use: Code(s): Z79.01 - extermination inspector (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 of anticoagulants Status: Acute Assessment and Plan: on hold (5) Renal insufficiency: Code(s): N28.9 - Disorder of kidney and ureter, unspecified Status: Acute Assessment and Plan: nephrology on board (6) Atrial fibrillation: Qualifiers: Atrial fibrillation type: unspecified chronic Qualified Code(s): I48.20 - Chronic atrial fibrillation, unspecified Code(s): I48.91 - Unspecified atrial fibrillation Status: Chronic Assessment and Plan: hold blood thinners, probably ok to resume in ~10 days but will need to monitor hb as outpatient Subjective Date/time seen: 06/30/20 16:50 Interval history: she is in the floor, still weak, no new issues. Review of Systems Review of Systems: All systems reviewed & are unremarkable except as noted in HPI and below Exam Const: General: comfortable and no acute distress HENMT: General nose exam: Normal nares present Eyes: General: appearance normal, both eyes and all related structures Neck: Neck: supple Resp: Auscultation: clear to auscultation bilaterally Cardio: Rhythm: abnormal rhythm regularly irregular GI: Inspection: non-distended GI Palp: Yes Soft to palpation and No Tenderness to palpation present (GI) Auscultation: normal bowel sounds Urinary Catheter: Urinary Catheter: urine dark Skin: General skin exam: normal color Neuro: Speech: normal speech Motor exam (neuro): Normal motor muscle tone present throughout Extrem: General: normal to inspection Psych: Mental Status: mental status grossly normal Objective Data Vital Signs Vital Signs: Vital Signs - 24 hr 06/29/20 20:44 06/29/20 21:00 06/30/20 04:47 Temperature 96.9 F L 96.4 F L Pulse Rate 74 72 Respiratory Rate 16 20 Blood Pressure 121/66 137/77 Pulse Oximetry 97 97 95 06/30/20 08:34 06/30/20 09:41 Temperature Pulse Rate Respiratory Rate Blood Pressure Pulse Oximetry 95 97 Intake/Output Intake/Output: Intake & Output 06/27/20 06/28/20 06/29/20 06/30/20 23:59 23:59 23:59 23:59 Intake Total 2230.2 2957.4 1354.2 1390 Output Total 350 275 545 300 Balance 1880.2 2682.4 809.2 1090 Meds/Results Medications: Active Medications Generic Name Dose Route Start Last Admin Trade Name Freq PRN Reason Stop Dose Admin Dextrose 12.5 gm 06/26/20 23:54 Dextrose 50% 25 Gm/50 Ml Syringe IV PUSH PRN PRN Hypoglycemia Protocol Glucagon 1 mg 06/26/20 23:54 Glucagon For Inj 1 Mg Vial IM PRN PRN Hypoglycemia Protocol Dextrose 1,000 mls @ 100 mls/hr 06/26/20 23:54 Dextrose 5% 1,000 Ml IVPB PRN PRN Hypoglycemia Protocol Sodium Chloride 1,000 mls @ 50 mls/hr 06/27/20 21:55 06/30/20 10:21 Normal Saline Iv IV CONT 50 mls/hr .Q20H JACKI Administration Insulin Aspart 2 - 5 units 06/27/20 17:00 06/30/20 11:46 Insulin Aspart (*Bkc) 100 Units/Ml SUB-Q Not Given TIDWM JACKI Protocol Levothyroxine Sodium 62.5 mcg 06/27/20 06:30 06/30/20 05:30 Levothyroxine Sodium Inj
[2020-06-30 17:10] LABS: Glucose Point of Care 130 (65-105)
[2020-06-30 20:05] VITALS: BP 136/67; PULSE 77; RESP 18; TEMP 36.3; O2SAT 96
[2020-06-30] MEDS: PANTOPRAZOLE 40 MG TABLET PO (20:10)
[2020-06-30 21:06] VITALS: O2SAT 95
[2020-06-30 21:15] LABS: Glucose Point of Care 115 (65-105)
[2020-07-01] VITALS (7 sets, daily range): BP systolic 114–132; BP diastolic 49–63; PULSE 81–87; RESP 16–20; TEMP 36.2–36.5; O2SAT 95–100
[2020-07-01] MEDS: LEVOTHYROXINE SODIUM INJ 100 MCG/5 ML VIAL 62.5 MCG IV PUSH (05:30)
[2020-07-01 07:48] LABS: Glucose Point of Care 94 (65-105)
[2020-07-01] MEDS: PANTOPRAZOLE 40 MG TABLET PO ×2 (08:21→20:30)
[2020-07-01] MEDS: SODIUM CHLORIDE 0.9% IV 1,000 ML 50 ML IV CONT (10:46)
--- NOTE | 2020-07-01 10:55 | PM.PNNEP ---
Progress Note: A&P Assessment and Plan (1) ALEX (acute kidney injury): Code(s): N17.9 - Acute kidney failure, unspecified Status: Acute Assessment and Plan: upon further review of records, the patient had a normal creatinine in January 2020 per my discussion with and patient, they reported her baseline creatinine runs ~ 2.2 - 3.0mg/dl -- I suspect this was ALEX/ARF during her previous hospitalization in [place] (?) however, her renal ultrasound appears consistent with CKD suspect acute injury secondary to renal hypoperfusion from anemia/hypotension/volume depletion possibly worsened by UTI urine electrolytes suggest pre-renal azotemia risk factors for CKD diabetes, hypertension, vascular disease (CAD, hyperlipidemia, CVA...etc) and age follow trend of repeat labs and UOP (2) Syncope: Qualifiers: Syncope type: unspecified Qualified Code(s): R55 - Syncope and collapse Code(s): R55 - Syncope and collapse Status: Acute Assessment and Plan: presumably due to severe anemia and associated volume depletion follow for recurrence (3) Acute GI bleeding: Code(s): K92.2 - Gastrointestinal hemorrhage, unspecified Status: Acute Assessment and Plan: s/p EGD with gastritis and spontaneous oozing treated with APC. Gastroenterology following follow trend of H/H anticoagulation on hold - resume? (4) Hypertension: Qualifiers: Hypertension type: unspecified Qualified Code(s): I10 - Essential (primary) hypertension Code(s): I10 - Essential (primary) hypertension Status: Chronic Assessment and Plan: appears to be doing better holding anti-HTN medications follow hemodynamics (5) Atrial fibrillation: Qualifiers: Atrial fibrillation type: unspecified chronic Qualified Code(s): I48.20 - Chronic atrial fibrillation, unspecified Code(s): I48.91 - Unspecified atrial fibrillation Status: Chronic Assessment and Plan: continue rate control startegy anticoagulation on hold Cardiology following (6) UTI (urinary tract infection): Code(s): N39.0 - Urinary tract infection, site not specified Status: Acute Assessment and Plan: urine culture with Klebsiella and E.coli start antibiotics(?) (7) Diabetes: Qualifiers: Diabetes mellitus complication status: without complication Diabetes mellitus oil heaterman insulin use: unspecified oil heaterman insulin use status Diabetes mellitus type: type 2 Qualified Code(s): E11.9 - Type 2 diabetes mellitus without complications Code(s): E11.9 - Type 2 diabetes mellitus without complications Status: Chronic Assessment and Plan: follow accuchecks on SSI Will continue to follow. Subjective Date/time seen: 07/01/20 10:55 Better hemodynamics noted in the last 24 - 48 hours; major complaint continues to be that of weakness but no apparent distress noted; no events/issues overnight or earlier this AM; better urine output and hemodynamics noted as well. Exam Narrative: Exam Narrative: General: WD/WN female in NAD Heart: normal S1 and S2; IRRR no rub Lungs: clear to auscultation Abdomen: soft, nontender, nondistended, positive bowel sounds Extremities: no cyanosis or clubbing; no edema Skin: no rash or nodules Objective Data Vital Signs Vital Signs: Vital Signs Temp Pulse Resp BP Pulse Ox 07/01/20 08:24 98 07/01/20 08:03 95 07/01/20 07:48 96 07/01/20 05:44 36.5 C 87 18 129/57 L 100 06/30/20 21:06 95 06/30/20 20:05 36.3 C L 77 18 136/67 96 06/30/20 16:30 36.3 C L 76 18 113/62 100 Intake/Output Intake/Output: Intake & Output 06/28/20 06/29/20 06/30/20 07/01/20 23:59 23:59 23:59 23:59 Intake Total 2957.4 1354.2 1440 1170 Output Total 275 545 750 400 Balance 2682.4 809.2 464 770 Meds/Results Medications: Active Medications Gener
--- NOTE | 2020-07-01 10:55 | P.PNNP_ITS ---
Progress Note: A&P Assessment and Plan (1) ALEX (acute kidney injury): Code(s): N17.9 - Acute kidney failure, unspecified Status: Acute Assessment and Plan: * upon further review of records, the patient had a normal creatinine in January 2020 * per my discussion with and patient, they reported her baseline creatinine runs ~ 2.2 - 3.0mg/dl -- I suspect this was ALEX/ARF during her previous hospitalization in [place] (?) * however, her renal ultrasound appears consistent with CKD * suspect acute injury secondary to renal hypoperfusion from anemia/hyp otension/volume depletion possibly worsened by UTI * urine electrolytes suggest pre-renal azotemia * risk factors for CKD diabetes, hypertension, vascular disease (CAD, hyperlipidemia, CVA...etc) and age * follow trend of repeat labs and UOP (2) Syncope: Qualifiers: Syncope type: unspecified Qualified Code(s): R55 - Syncope and collapse Code(s): R55 - Syncope and collapse Status: Acute Assessment and Plan: * presumably due to severe anemia and associated volume depletion * follow for recurrence (3) Acute GI bleeding: Code(s): K92.2 - Gastrointestinal hemorrhage, unspecified Status: Acute Assessment and Plan: * s/p EGD with gastritis and spontaneous oozing treated with APC. * Gastroenterology following * follow trend of H/H * anticoagulation on hold - resume? (4) Hypertension: Qualifiers: Hypertension type: unspecified Qualified Code(s): I10 - Essential (primary) hypertension Code(s): I10 - Essential (primary) hypertension Status: Chronic Assessment and Plan: * appears to be doing better * holding anti-HTN medications * follow hemodynamics (5) Atrial fibrillation: Qualifiers: Atrial fibrillation type: unspecified chronic Qualified Code(s): I48.20 - Chronic atrial fibrillation, unspecified Code(s): I48.91 - Unspecified atrial fibrillation Status: Chronic Assessment and Plan: * continue rate control startegy * anticoagulation on hold * Cardiology following (6) UTI (urinary tract infection): Code(s): N39.0 - Urinary tract infection, site not specified Status: Acute Assessment and Plan: * urine culture with Klebsiella and E.coli * start antibiotics(?) (7) Diabetes: Qualifiers: Diabetes mellitus complication status: without complication Diabetes mellitus termite helper insulin use: unspecified termite helper insulin use status Diabetes mellitus type: type 2 Qualified Code(s): E11.9 - Type 2 diabetes mellitus without complications Code(s): E11.9 - Type 2 diabetes mellitus without complications Status: Chronic Assessment and Plan: * follow accuchecks * on SSI Will continue to follow. Subjective Date/time seen: 07/01/20 10:55 Better hemodynamics noted in the last 24 - 48 hours; major complaint continues to be that of weakness but no apparent distress noted; no events/issues overnight or earlier this AM; better urine output and hemodynamics noted as well. Exam Narrative: Exam Narrative: General: WD/WN female in NAD Heart: normal S1 and S2; IRRR no rub Lungs: clear to auscultation Abdomen: soft, nontender, nondistended, positive bowel sounds Extremities: no cyanosis or clubbing; no edema Skin: no rash or nodules Objective Data Vital Signs Vital Signs: Vital Signs
[2020-07-01 12:15] LABS: Glucose Point of Care 124 (65-105)
--- NOTE | 2020-07-01 13:30 | PCOTNOTE ---
Attempted to see patient this pm, however patient was sleeping upon entering. stated Who are you? After introduction, patient's replied, Oh boy. She already worked with them about an hour ago. Pt stated, Please no. Not today. Pt presented with increased fatigue at this time. stated, Yeah, she does better in the morning.
--- NOTE | 2020-07-01 15:17 | PM.IMPN ---
Progress Note: A&P Assessment and Plan (1) Syncope: Qualifiers: Syncope type: unspecified Qualified Code(s): R55 - Syncope and collapse Code(s): R55 - Syncope and collapse Status: Acute Assessment and Plan: Likely secondary to hypovolemia secondary to GI bleed and hypotension PATIENT IS STATUS POST BLOOD TRANSFUSION SUPPORTIVE CARE NO NEW EVENTS STABLE (2) Acute GI bleeding: Code(s): K92.2 - Gastrointestinal hemorrhage, unspecified Status: Acute Assessment and Plan: Patient is status post EGD was found to have gastritis Continue PPI TOLERATING DIET (3) Acute on chronic blood loss anemia: Code(s): D62 - Acute posthemorrhagic anemia Status: Acute Assessment and Plan: Secondary to GI bleed (4) Anticoagulant long-term use: Code(s): Z79.01 - 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 (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 of anticoagulants Status: Acute Assessment and Plan: Holding Plavix and novel anticoagulant TO BE RESUMED AT A LATER TIME PER PCP (5) Renal insufficiency: Code(s): N28.9 - Disorder of kidney and ureter, unspecified Status: Acute Assessment and Plan: Unknown baseline Continue to monitor Avoid nephrotoxin Follow Nephrology recs (6) Hypertension: Qualifiers: Hypertension type: unspecified Qualified Code(s): I10 - Essential (primary) hypertension Code(s): I10 - Essential (primary) hypertension Status: Chronic Assessment and Plan: Stable (7) Atrial fibrillation: Qualifiers: Atrial fibrillation type: unspecified chronic Qualified Code(s): I48.20 - Chronic atrial fibrillation, unspecified Code(s): I48.91 - Unspecified atrial fibrillation Status: Chronic Assessment and Plan: Rate controlled Holding anticoagulation (8) GERD (gastroesophageal reflux disease): Qualifiers: Esophagitis presence: esophagitis presence not specified Qualified Code(s): K21.9 - Gastro-esophageal reflux disease without esophagitis Code(s): K21.9 - Gastro-esophageal reflux disease without esophagitis Status: Chronic Assessment and Plan: Continue PPI Additional Plan . Subjective Date/time seen: 07/01/20 15:17 I FEEL GOOD Interval history: she is in the floor, still weak, no new issues. Review of Systems Review of Systems: All systems reviewed & are unremarkable except as noted in HPI and below ROS unobtainable: Yes unobtainable due to medical condition (Patient seems to be confused today not able to give me any history) Exam Narrative: Exam Narrative: SITTING IN CHAIR PARTICIPATING WITH OT IN THERAPY Const: General: cooperative, comfortable, no acute distress, well developed, alert, awake, tired appearing and other (Pale appearing) Nutritional Appearance: average body habitus and overweight Orientation/consciousness: patient oriented x3 HENMT: Head: normal to inspection, normocephalic and atraumatic Ears: hearing grossly normal bilaterally General nose exam: Normal external nose present Face and sinus: normal facial exam Mouth: Yes Normal oral and palatal mucosa present and Yes oropharynx normal Eyes: General: appearance normal, both eyes and all related structures Pupils: Equal, round and reactive pupils present EOM: EOMs intact bilaterally Neck: Neck: full ROM, no lymphadenopathy, supple and no JVD Thyroid: thyroid normal Lymphatic: no lymphadenopathy noted and lymphadenopathy not noted Resp: Effort & Inspection: normal respiratory effort and able to speak in complete sentences Auscultation: clear to auscultation bilaterally and diminished lung sounds Cardio: Jugular venous distension: no JVD Rate: regular rate Rhythm: regular rhythm and abnormal rhythm irregularly irregular Heart sounds: S1 normal heart sound present, S2 normal heart sound present and no murmurs GI: Inspection: normal to inspection Auscultation: normal bowel sounds Rectal Exam: heme
[2020-07-01 17:46] LABS: Glucose Point of Care 148 (65-105)
[2020-07-01 20:48] LABS: Glucose Point of Care 152 (65-105)
[2020-07-02 00:13] LABS: Albumin Level 3.2 g/dL (3.5-5.1); Anion Gap 9 mmol/L (8-16); Blood Urea Nitrogen 47 mg/dL (7-17); Calcium 8.9 mg/dL (8.4-10.2); Carbon Dioxide 20 mmol/L (22-30); Chloride 109 mmol/L (98-107); Estimated CRCL calculation 22 ml/min; Estimated Glomerular Filt Rate 27; Glucose 72 mg/dL (65-105); Phosphorus 3.9 mg/dL (2.5-4.5); Potassium 3.6 mmol/L (3.4-5.0); Sodium 138 mmol/L (137-145)
[2020-07-02 05:45] VITALS: BP 122/62; PULSE 82; RESP 18; TEMP 36.1; O2SAT 100
[2020-07-02 06:20] LABS: Albumin Level 3.1 g/dL (3.5-5.1); Anion Gap 7 mmol/L (8-16); Blood Urea Nitrogen 39 mg/dL (7-17); Calcium 8.4 mg/dL (8.4-10.2); Carbon Dioxide 20 mmol/L (22-30); Chloride 113 mmol/L (98-107); Estimated CRCL calculation 27 ml/min; Estimated Glomerular Filt Rate 34; Glucose 123 mg/dL (65-105); Phosphorus 3.3 mg/dL (2.5-4.5); Potassium 3.3 mmol/L (3.4-5.0); Sodium 140 mmol/L (137-145)
[2020-07-02] MEDS: LEVOTHYROXINE SODIUM INJ 100 MCG/5 ML VIAL 62.5 MCG IV PUSH (06:31)
[2020-07-02] MEDS: SODIUM CHLORIDE 0.9% IV 1,000 ML 50 ML IV CONT (06:32)
[2020-07-02 06:56] LABS: Glucose Point of Care 115 (65-105)
[2020-07-02 09:00] VITALS: O2SAT 94
[2020-07-02] MEDS: PANTOPRAZOLE 40 MG TABLET PO (09:10)
[2020-07-02 09:14] VITALS: O2SAT 94
--- NOTE | 2020-07-02 11:00 | P.PNNP_ITS ---
Progress Note: A&P Assessment and Plan (1) ALEX (acute kidney injury): Code(s): N17.9 - Acute kidney failure, unspecified Status: Acute Assessment and Plan: * upon further review of records, the patient had a normal creatinine in January 2020 * per my discussion with and patient, they reported her baseline creatinine runs ~ 2.2 - 3.0mg/dl -- I suspect this was ALEX/ARF during her previous hospitalization in [place] (?) * however, her renal ultrasound appears consistent with CKD * suspect acute injury secondary to renal hypoperfusion from anemia/hyp otension/volume depletion possibly worsened by UTI * urine electrolytes suggest pre-renal azotemia * risk factors for CKD diabetes, hypertension, vascular disease (CAD, hyperlipidemia, CVA...etc) and age * follow trend of repeat labs and UOP (2) Syncope: Qualifiers: Syncope type: unspecified Qualified Code(s): R55 - Syncope and collapse Code(s): R55 - Syncope and collapse Status: Acute Assessment and Plan: * presumably due to severe anemia and associated volume depletion * follow for recurrence (3) Acute GI bleeding: Code(s): K92.2 - Gastrointestinal hemorrhage, unspecified Status: Acute Assessment and Plan: * s/p EGD with gastritis and spontaneous oozing treated with APC. * Gastroenterology following * follow trend of H/H * anticoagulation on hold - resume? (4) Hypertension: Qualifiers: Hypertension type: unspecified Qualified Code(s): I10 - Essential (primary) hypertension Code(s): I10 - Essential (primary) hypertension Status: Chronic Assessment and Plan: * appears to be doing better * holding anti-HTN medications * follow hemodynamics (5) Atrial fibrillation: Qualifiers: Atrial fibrillation type: unspecified chronic Qualified Code(s): I48.20 - Chronic atrial fibrillation, unspecified Code(s): I48.91 - Unspecified atrial fibrillation Status: Chronic Assessment and Plan: * continue rate control startegy * anticoagulation on hold * Cardiology following (6) UTI (urinary tract infection): Code(s): N39.0 - Urinary tract infection, site not specified Status: Acute Assessment and Plan: * urine culture with Klebsiella and E.coli * start antibiotics(?) (7) Diabetes: Qualifiers: Diabetes mellitus complication status: without complication Diabetes mellitus terminal gauger insulin use: unspecified terminal gauger insulin use status Diabetes mellitus type: type 2 Qualified Code(s): E11.9 - Type 2 diabetes mellitus without complications Code(s): E11.9 - Type 2 diabetes mellitus without complications Status: Chronic Assessment and Plan: * follow accuchecks * on SSI Will continue to follow. Subjective Date/time seen: 07/02/20 11:00 Overall, seems to be doing reasonably well at the time of my visit; sitting up in chair eating lunch with the assistance of her at the time of my visit; no acute distress voiced. Exam Narrative: Exam Narrative: General: WD/WN female in NAD Heart: normal S1 and S2; IRRR no rub Lungs: clear to auscultation Abdomen: soft, nontender, nondistended, positive bowel sounds Extremities: no cyanosis or clubbing; no edema Skin: warm and dry Objective Data Vital Signs Vital Signs: Vital Signs Temp Pulse Resp BP Pulse Ox 0
--- NOTE | 2020-07-02 11:00 | PM.PNNEP ---
Progress Note: A&P Assessment and Plan (1) ALEX (acute kidney injury): Code(s): N17.9 - Acute kidney failure, unspecified Status: Acute Assessment and Plan: upon further review of records, the patient had a normal creatinine in January 2020 per my discussion with and patient, they reported her baseline creatinine runs ~ 2.2 - 3.0mg/dl -- I suspect this was ALEX/ARF during her previous hospitalization in [place] (?) however, her renal ultrasound appears consistent with CKD suspect acute injury secondary to renal hypoperfusion from anemia/hypotension/volume depletion possibly worsened by UTI urine electrolytes suggest pre-renal azotemia risk factors for CKD diabetes, hypertension, vascular disease (CAD, hyperlipidemia, CVA...etc) and age follow trend of repeat labs and UOP (2) Syncope: Qualifiers: Syncope type: unspecified Qualified Code(s): R55 - Syncope and collapse Code(s): R55 - Syncope and collapse Status: Acute Assessment and Plan: presumably due to severe anemia and associated volume depletion follow for recurrence (3) Acute GI bleeding: Code(s): K92.2 - Gastrointestinal hemorrhage, unspecified Status: Acute Assessment and Plan: s/p EGD with gastritis and spontaneous oozing treated with APC. Gastroenterology following follow trend of H/H anticoagulation on hold - resume? (4) Hypertension: Qualifiers: Hypertension type: unspecified Qualified Code(s): I10 - Essential (primary) hypertension Code(s): I10 - Essential (primary) hypertension Status: Chronic Assessment and Plan: appears to be doing better holding anti-HTN medications follow hemodynamics (5) Atrial fibrillation: Qualifiers: Atrial fibrillation type: unspecified chronic Qualified Code(s): I48.20 - Chronic atrial fibrillation, unspecified Code(s): I48.91 - Unspecified atrial fibrillation Status: Chronic Assessment and Plan: continue rate control startegy anticoagulation on hold Cardiology following (6) UTI (urinary tract infection): Code(s): N39.0 - Urinary tract infection, site not specified Status: Acute Assessment and Plan: urine culture with Klebsiella and E.coli start antibiotics(?) (7) Diabetes: Qualifiers: Diabetes mellitus complication status: without complication Diabetes mellitus manager terminal insulin use: unspecified manager terminal insulin use status Diabetes mellitus type: type 2 Qualified Code(s): E11.9 - Type 2 diabetes mellitus without complications Code(s): E11.9 - Type 2 diabetes mellitus without complications Status: Chronic Assessment and Plan: follow accuchecks on SSI Will continue to follow. Subjective Date/time seen: 07/02/20 11:00 Overall, seems to be doing reasonably well at the time of my visit; sitting up in chair eating lunch with the assistance of her at the time of my visit; no acute distress voiced. Exam Narrative: Exam Narrative: General: WD/WN female in NAD Heart: normal S1 and S2; IRRR no rub Lungs: clear to auscultation Abdomen: soft, nontender, nondistended, positive bowel sounds Extremities: no cyanosis or clubbing; no edema Skin: warm and dry Objective Data Vital Signs Vital Signs: Vital Signs Temp Pulse Resp BP Pulse Ox 07/02/20 09:14 94 07/02/20 09:00 94 07/02/20 05:45 36.1 C L 82 18 122/62 100 07/01/20 20:30 87 20 97 07/01/20 20:29 36.4 C 87 20 132/63 97 07/01/20 14:01 36.2 C L 81 16 114/49 L 98 Intake/Output Intake/Output: Intake & Output 06/29/20 06/30/20 07/01/20 07/02/20 23:59 23:59 23:59 23:59 Intake Total 1354.2 1440 1530 1380 Output Total 545 750 950 625 Balance 809.2 690 580 755 Meds/Results Medications: Active Medications Generic Name Dose Route Start Last Admin Trade Name Freq PRN Reason Stop Dose
[2020-07-02 11:51] LABS: Glucose Point of Care 116 (65-105)
[2020-07-02 13:18] LABS: Basophils Percent Auto 0.6 % (0.2-1.2); Eosinophils Absolute Auto 0.2 K/mm3 (0-0.3); Hematocrit 25.6 % (37.0-47.0); Hemoglobin 8.1 g/dL (12.0-15.0); Immature Granulocyte Absolute 0.02 K/mm3 (0.00-0.031); Immature Granulocyte Percent A 0.3 % (0-0.5); Lymphocytes Absolute Auto 0.87 K/mm3 (0.9-3.2); Lymphocytes Percent Auto 13.9 % (18.3-44.2); Mean Corpuscular HGB Conc 31.6 g/dl (32-36); Mean Corpuscular Hemoglobin 27.1 pg (26-34); Mean Corpuscular Volume 85.6 fl (80-100); Mean Platelet Volume 10.8 fl (7.4-10.4); Monocytes Absolute Auto 1.1 K/mm3 (0.1-0.6); Monocytes Percent Auto 17.6 % (2.6-8.5); Neutrophils Percent Auto 64.6 % (45.5-73.1); Platelet Count Result 150 k/mm3 (150-375); Red Blood Count 2.99 M/mm3 (4.2-5.4); Red Cell Distribution Width 25.1 % (11.5-14.5); White Blood Count 6.3 K/mm3 (4.5-10.0)
[2020-07-02 13:27] LABS: Potassium 3.4 mmol/L (3.4-5.0)
[2020-07-02 13:29] LABS: Anion Gap 9 mmol/L (8-16); Blood Urea Nitrogen 34 mg/dL (7-17); Calcium 8.9 mg/dL (8.4-10.2); Carbon Dioxide 18 mmol/L (22-30); Chloride 113 mmol/L (98-107); Estimated CRCL calculation 30 ml/min; Estimated Glomerular Filt Rate 40; Glucose 158 mg/dL (65-105); Sodium 140 mmol/L (137-145)
[2020-07-02 14:00] VITALS: BP 121/64; PULSE 86; RESP 14; TEMP 36.4; O2SAT 99
--- NOTE | 2020-07-02 15:45 | PM.DS ---
DS: Admitting Diagnosis Admitting Diagnosis Admitting Diagnosis: (1) Syncope: Qualifiers: Syncope type: unspecified Qualified Code(s): R55 - Syncope and collapse Code(s): R55 - Syncope and collapse Status: Acute Assessment and Plan: Appears to be secondary to an acute GI bleed. Strict bed rest. Telemetry. Continue treatment for acute GI bleed. (2) Acute GI bleeding: Code(s): K92.2 - Gastrointestinal hemorrhage, unspecified Status: Acute Assessment and Plan: Patient was guaiac positive on bedside exam. We will admit the patient to ICU as the patient has been hypotensive and continues to be symptomatic. Monitor H&H, transfuse p.r.n. NPO. Protonix IV drip. Check occult blood stool. I have consulted Gastroenterology, Dr. Chung Ferro. (3) Renal insufficiency: Code(s): N28.9 - Disorder of kidney and ureter, unspecified Status: Acute Assessment and Plan: Acute versus chronic renal failure likely secondary to hypoperfusion as the patient's blood pressure has been labile tonight. Monitor renal function, avoid nephrotoxin agents, renally dose medications. (4) Thrombocytopenia: Code(s): D69.6 - Thrombocytopenia, unspecified Status: Acute Assessment and Plan: Monitor platelets, transfuse p.r.n. (5) Acute respiratory failure with hypoxemia: Code(s): J96.01 - Acute respiratory failure with hypoxia Status: Acute Assessment and Plan: Oxygen supplementation, continuous pulse oximetry. (6) Hyperkalemia: Code(s): E87.5 - Hyperkalemia Status: Acute Assessment and Plan: Will recheck another BMP now and consider calcium gluconate, insulin and dextrose, sodium bicarbonate for hyperkalemia. (7) Atrial fibrillation: Qualifiers: Atrial fibrillation type: unspecified chronic Qualified Code(s): I48.20 - Chronic atrial fibrillation, unspecified Code(s): I48.91 - Unspecified atrial fibrillation Status: Chronic Assessment and Plan: Hold anticoagulation as the patient appears to be having a GI bleed. Currently the patient is rate controlled. Resume home medications when appropriate. (8) CHF (congestive heart failure): Qualifiers: Heart failure chronicity: chronic Heart failure type: unspecified Qualified Code(s): I50.9 - Heart failure, unspecified Code(s): I50.9 - Heart failure, unspecified Status: Chronic Assessment and Plan: Monitor fluid status. Resume home CHF medications when appropriate. We will consider IV lasix therapy if the patient begins to become fluid overloaded. 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 (10) GERD (gastroesophageal reflux disease): Qualifiers: Esophagitis presence: esophagitis presence not specified Qualified Code(s): K21.9 - Gastro-esophageal reflux disease without esophagitis Code(s): K21.9 - Gastro-esophageal reflux disease without esophagitis Status: Chronic Assessment and Plan: Continue PPI therapy. (11) Hypertension: Qualifiers: Hypertension type: unspecified Qualified Code(s): I10 - Essential (primary) hypertension Code(s): I10 - Essential (primary) hypertension Status: Chronic Assessment and Plan: The patient has had labile blood pressures overnight. We will hold home blood pressure medications and resume when appropriate. Monitor blood pressure. Additional Plan The patient will likely need at least 2 nights of inpatient medical therapy for
[2020-07-02 16:36] LABS: Chloride Rand Ur 30 mmol/L (32-290); Chloride/Creatinine Rand Ur 31 (38-318); Creatinine Random Urine 97 mg/dL (20-275)
== END 2020-07-02 17:03 | disposition home health service (06) | DRG 378 ==
LOC: ANHED 21:20 → ANHICU 23:56 → ANH3MED 06-30 11:27 → ANHICU 07-06 10:42
PROVIDERS: Family Medicine; Internal Medicine; Internal Medicine Cardiovascular Disease; Internal Medicine Gastroenterology; Internal Medicine Nephrology; Nurse Practitioner; Admitting Provider Family Medicine; Emergency Provider Emergency Medicine; PCP Family Medicine; Visit Provider Internal Medicine
PROC: 0DJ08ZZ Inspection of Upper Intestinal Tract, Via Natural or Artificial Opening Endoscopic (ICD-10-PCS; CPT 43235; principal; 2020-06-27 13:00)
DX: K29.71 Gastritis, unspecified, with bleeding (principal); I48.20 Chronic atrial fibrillation, unspecified; D62 Acute posthemorrhagic anemia; N17.9 Acute kidney failure, unspecified; I13.0 Hypertensive heart and chronic kidney disease with heart failure and stage 1 through stage 4 chronic kidney disease, or unspecified chronic kidney disease; N39.0 Urinary tract infection, site not specified; B96.1 Klebsiella pneumoniae [K. pneumoniae] as the cause of diseases classified elsewhere; B96.20 Unspecified Escherichia coli [E. coli] as the cause of diseases classified elsewhere; T45.525A Adverse effect of antithrombotic drugs, initial encounter; I25.10 Atherosclerotic heart disease of native coronary artery without angina pectoris; E11.22 Type 2 diabetes mellitus with diabetic chronic kidney disease; N18.9 Chronic kidney disease, unspecified; I50.9 Heart failure, unspecified; R55 Syncope and collapse; D69.6 Thrombocytopenia, unspecified; K21.9 Gastro-esophageal reflux disease without esophagitis; E87.5 Hyperkalemia; E78.00 Pure hypercholesterolemia, unspecified; J45.909 Unspecified asthma, uncomplicated; Z79.899 Other long term (current) drug therapy; Z86.73 Personal history of transient ischemic attack (TIA), and cerebral infarction without residual deficits; Z88.0 Allergy status to penicillin; Z88.2 Allergy status to sulfonamides; Z79.01 Long term (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 of anticoagulants
CPT/HCPCS: 36415; 36430; 36600; 71046; 76775; 80048; 80053; 80069; 81001; 82274; 82436; 82570; 82805; 82948; 83735; 84100; 84133; 84300; 85014; 85018; 85025; 85055; 85610; 85730; 85999; 86850; 86900; 86901; 87077; 87086; 87088; 87186; 93005; 93306; 97110; 97116; 97161; 97165; 97530; 97535; 99285; A9270; C9113; J0131; J1815; J2370; J7030; J7040; J7060; J7120; P9017

== ENCOUNTER 2020-07-08 15:22 | Emergency (ER) | payer MEDICARE, SELFPAY ==
[2020-07-08] VITALS (12 sets, daily range): BP systolic 92–94; BP diastolic 52–67; PULSE 57–70; RESP 11–24; TEMP 36.6; O2SAT 97
--- NOTE | ~2020-07-08 | XR_ITS ---
EXAMINATION: XR chest 2V EXAM DATE: 07/08/2020 16:14 INDICATION: Weakness and shortness of breath. Low blood pressure, atrial fibrillation, hypertension, CHF. TECHNIQUE: Frontal and lateral projections of the chest obtained and reviewed. Comparison is made to prior examination from 06/26/2020. FINDINGS: There is cardiomegaly. Coronary artery stents identified. Probable small to moderate left a nd small right pleural effusions with some adjacent atelectasis. No confluent consolidation or pneumo thorax. Probable mild pulmonary edema. Left shoulder replacement. IMPRESSION: Findings suspicious for mild CHF exacerbation. Reviewed, dictated and finalized at location B.
--- NOTE | 2020-07-08 15:39 | ECG_ITS ---
Measurements Intervals [place] Rate: 69 P: MO: 0 QRS: 92 QRSD: 89 T: 1 QT: 406 QTc: 436 Interpretive Statements ATRIAL FIBRILLATION LOW QRS VOLTAGE IN PRECORDIAL LEADS CANNOT RULE OUT SEPTAL INFARCT, AGE INDETERMINATE BORDERLINE T WAVE ABNORMALITY- ANTEROLAT/INF LEADS ABNORMAL ECG Electronically Signed On 07-08-2020 16:21:51 CDT by Jacob Rondon D.O.
--- NOTE | 2020-07-08 15:40 | PC.NURSE ---
Patient to restroom with assistance of the field evidence technician
--- NOTE | 2020-07-08 17:32 | PC.NURSE ---
Called lab at [phone] and spoke with Jovita Arora to add on orders per RN.
[2020-07-08 17:33] LABS: Basophils Percent Auto 0.9 % (0.2-1.2); Eosinophils Absolute Auto 0.1 K/mm3 (0-0.3); Eosinophils Percent Auto 2.3 % (0-4.4); Hematocrit 24.7 % (37.0-47.0); Immature Granulocyte Absolute 0.01 K/mm3 (0.00-0.031); Immature Granulocyte Percent A 0.2 % (0-0.5); Lymphocytes Absolute Auto 0.85 K/mm3 (0.9-3.2); Lymphocytes Percent Auto 19.1 % (18.3-44.2); Mean Corpuscular HGB Conc 32.4 g/dl (32-36); Mean Corpuscular Hemoglobin 27.5 pg (26-34); Mean Corpuscular Volume 84.9 fl (80-100); Monocytes Absolute Auto 0.5 K/mm3 (0.1-0.6); Monocytes Percent Auto 11.3 % (2.6-8.5); Neutrophils Absolute Auto 2.9 K/mm3 (1.3-6.7); Neutrophils Percent Auto 66.2 % (45.5-73.1); Platelet Count Result 92 k/mm3 (150-375); Red Blood Count 2.91 M/mm3 (4.2-5.4); Red Cell Distribution Width 24.2 % (11.5-14.5); White Blood Count 4.4 K/mm3 (4.5-10.0)
[2020-07-08 17:48] LABS: Alanine Aminotransferase 20 U/L (4-35); Albumin Level 3.4 g/dL (3.5-5.1); Alkaline Phosphatase 147 U/L (38-126); Anion Gap 10 mmol/L (8-16); Aspartate Amino Transferase 39 U/L (14-36); Bilirubin,Total 1.1 mg/dL (0.2-1.3); Blood Urea Nitrogen 42 mg/dL (7-17); CRP 0.7 mg/dL (<1.0); Calcium 9.2 mg/dL (8.4-10.2); Carbon Dioxide 19 mmol/L (22-30); Chloride 107 mmol/L (98-107); Estimated CRCL calculation 20 ml/min; Estimated Glomerular Filt Rate 26; Glucose 129 mg/dL (65-105); Potassium 2.9 mmol/L (3.4-5.0); Sodium 136 mmol/L (137-145)
[2020-07-08 17:52] LABS: INR 1.4; Prothrombin Time 17.6 Seconds (11.1-14.7)
[2020-07-08 17:53] LABS: Partial Thromboplastin Time 32.6 SECONDS (22.3-36.8)
--- NOTE | 2020-07-08 17:56 | ED.GENADULT ---
HPI - General Adult General Chief complaint: Weakness Stated complaint: Weakness, Sob Time Seen by Provider: 07/08/20 17:19 Source: patient, family, EMS and RN notes reviewed Mode of arrival: EMS Limitations: no limitations History of Present Illness HPI narrative: Patient 80 years old white female brought to the emergency room by ambulance today because of low blood pressure. Patient was seen by Occupational Therapy today for the first time and noticed that her blood pressure is low, called the family physician who advised to take patient to the emergency room. Patient denying any new symptoms compared to yesterday or 1 week ago. Patient reports possible fluid in her belly for long time. Patient on 2 diuretics, carvedilol was increased lately, history of upper GI bleed 1-1/2 weeks ago and there was managed by our cam specialist at that time. Patient is not on any blood thinner, patient denies any fever, chills, nausea, vomiting, abdominal pain, back pain, chest pain or shortness of breath. Related Data Home Medications Medication Instructions Recorded Confirmed Pradaxa 75 mg PO DAILY 06/27/20 06/27/20 atorvastatin 10 mg PO DAILY 06/27/20 06/27/20 benzonatate 100 mg PO TID PRN 06/27/20 06/27/20 bumetanide 0.5 mg PO BID 06/27/20 06/27/20 carvedilol 12.5 mg PO BID 06/27/20 06/27/20 clopidogrel 75 mg PO DAILY 06/27/20 06/27/20 famotidine 40 mg PO BID 06/27/20 06/27/20 ferrous sulfate 1 tablet PO DAILY 06/27/20 06/27/20 gabapentin 400 mg PO BID 06/27/20 06/27/20 hydralazine 50 mg PO BID 06/27/20 06/27/20 levothyroxine 125 mcg PO DAILY 06/27/20 06/27/20 metolazone 2.5 mg PO EVERY OTHER DAY 06/27/20 06/27/20 potassium chloride 40 meq PO DAILY 06/27/20 06/27/20 Allergies Allergy/AdvReac Type Severity Reaction Status Date / Time apixaban [From Eliquis] Allergy Rash Verified 06/27/20 12:04 oxycodone Allergy Stopped Verified 06/27/20 12:04 Breathing Penicillins Allergy Rash Verified 06/27/20 12:04 rivaroxaban [From Xarelto] Allergy Rash Verified 06/27/20 12:04 Sulfa (Sulfonamide Allergy Rash Verified 06/27/20 12:04 Antibiotics) Review of Systems Review of Systems: Narrative: CONSTITUTIONAL: Denies fever, chills, or sweats. EYES: Denies visual changes, redness, or discharge. ENT: Denies rhinorrhea, congestion, sore throat, or otalgia. CARDIOVASCULAR: Denies chest pain, palpitations, or edema. RESPIRATORY: Denies cough or dyspnea. GASTROINTESTINAL: Denies abdominal pain, nausea, vomiting, or diarrhea. GENITOURINARY: Denies dysuria or hematuria. SKIN: Denies rash or itching. MUSCULOSKELETAL: Denies back pain, joint pain, or myalgia. NEUROLOGIC: Denies headache, numbness, or weakness. PSYCHIATRIC: Denies anxiety or depression. PMFSH Past Medical History Medical History Acute on chronic blood loss anemia Anticoagulant long-term use Asthma Atrial fibrillation CHF (congestive heart failure) CVA (cerebral vascular accident) Diabetes GERD (gastroesophageal reflux disease) History of coronary artery disease Hypercholesterolemia Hypertension IBS (irritable bowel syndrome) Surgical History Surgical History History of percutaneous coronary intervention Family History Family History Sibling Brain tumor Hypothyroidism Mother CAD (coronary artery disease) Social History Social History Smoking status: Never smoker Alcohol intake: never Substance use: never Spiritual care concerns: No Exam Narrative: Exam Narrative: General appearance: Well-developed, well-nourished Skin: Normal color Head: Normocephalic, nontraumatic Eyes: Clear conjunctiva ENT: Oropharynx normal, ears normal, nose normal Neck: Supple, nontender Chest and respiratory: Airway patent, no respiratory distress, no accessory mu
[2020-07-08 18:00] LABS: Alveolar/Arterial O2 Gradient 74.8 mmHg; Base Excess ABG -5.3 mEq/l (+/-2.0); Fractional Inspired Oxygen 21 %; HCO3 ABG 17.5 mEq/l (22.0-26.0); Oxyhemoglobin 81.8 % THb (90.0-100.0); PCO2 ABG 24.9 mmHg (35.0-45.0); PO2 FiO2 Ratio Arterial Blood 2.15 %; Total Hemoglobin 8.7 g/dL (12.0-18.0); pH ABG 7.464 (7.350-7.450)
[2020-07-08 18:01] LABS: Device ROOM AIR; Modified Allen's Test Pass; Oxygen Saturation ABG 84.8 % (95.0-100.0); PO2 ABG 45.1 mmHg (80.0-100.0); Site Drawn RIGHT RADIAL
--- NOTE | 2020-07-08 18:20 | PC.NURSE ---
upon attempting to establish iv pt states she is unsure if she wants to be admitted. extensive discussion had with pt and son regarding increasing fluid intake and bun/creat results. encouraged to maintain consistent fluid balance to help stabilize k levels.
--- NOTE | 2020-07-08 20:53 | PC.NURSE ---
UA, lactic, blood cultures cancelled as pt is already discharged.
== END 2020-07-08 19:20 | disposition home or self-care (01) ==
PROVIDERS: Emergency Provider Emergency Medicine; PCP Family Medicine
DX: N17.9 Acute kidney failure, unspecified (principal); E87.6 Hypokalemia; I50.9 Heart failure, unspecified; I11.0 Hypertensive heart disease with heart failure; I48.91 Unspecified atrial fibrillation; J45.909 Unspecified asthma, uncomplicated; E11.9 Type 2 diabetes mellitus without complications; E78.00 Pure hypercholesterolemia, unspecified; K21.9 Gastro-esophageal reflux disease without esophagitis; K58.9 Irritable bowel syndrome, unspecified; D62 Acute posthemorrhagic anemia; Z86.73 Personal history of transient ischemic attack (TIA), and cerebral infarction without residual deficits; R94.31 Abnormal electrocardiogram [ECG] [EKG]; Z79.02 Long term (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 of antithrombotics/antiplatelets
CPT/HCPCS: 36415; 36600; 71046; 80053; 82805; 85025; 85055; 85610; 85730; 86140; 93005; 99284

== ENCOUNTER 2021-02-08 22:09 | Emergency (ER) | payer MEDICARE, SELFPAY ==
[2021-02-08 22:12] VITALS: BP 129/67; PULSE 90; RESP 16; TEMP 36.5; O2SAT 99
--- NOTE | 2021-02-09 00:06 | ED.GENADULT ---
HPI - General Adult General Chief complaint: Unspecified Stated complaint: ring middle finger injury Time Seen by Provider: 02/08/21 23:08 Source: patient and RN notes reviewed Mode of arrival: ambulatory Limitations: no limitations History of Present Illness HPI narrative: This is a 81 year old female who presents for evaluation of bleeding wound to right 3rd finger. She reports she has had a wound to right 3rd finger tip since July. In july, she was hospitalized and got small puncture wound from frequent blood sugar checks. She reports having this wound bleed 5 times since july. Today it started bleeding and she has been unable to get it to stop. She stopped taking Pradaxa 2 weeks ago but she is still taking aspirin 81 mg. She denies epistaxis. She reports having blood in her stool 2 months ago but none since. She had a recent upper endoscopy in which an ulcer was cauterized. She has chronic shortness of breath but she denies chest pain, weakness or lightheadedness. She has known anemia. Related Data Home Medications Medication Instructions Recorded Confirmed Pradaxa 75 mg PO DAILY 06/27/20 06/27/20 atorvastatin 10 mg PO DAILY 06/27/20 06/27/20 benzonatate 100 mg PO TID PRN 06/27/20 06/27/20 bumetanide 0.5 mg PO BID 06/27/20 06/27/20 carvedilol 12.5 mg PO BID 06/27/20 06/27/20 clopidogrel 75 mg PO DAILY 06/27/20 06/27/20 famotidine 40 mg PO BID 06/27/20 06/27/20 ferrous sulfate 1 tablet PO DAILY 06/27/20 06/27/20 gabapentin 400 mg PO BID 06/27/20 06/27/20 hydralazine 50 mg PO BID 06/27/20 06/27/20 levothyroxine 125 mcg PO DAILY 06/27/20 06/27/20 metolazone 2.5 mg PO EVERY OTHER DAY 06/27/20 06/27/20 potassium chloride 40 meq PO DAILY 06/27/20 06/27/20 Allergies Allergy/AdvReac Type Severity Reaction Status Date / Time apixaban [From Eliquis] Allergy Rash Verified 02/08/21 22:18 oxycodone Allergy Stopped Verified 02/08/21 22:18 Breathing Penicillins Allergy Rash Verified 02/08/21 22:18 rivaroxaban [From Xarelto] Allergy Rash Verified 02/08/21 22:18 Sulfa (Sulfonamide Allergy Rash Verified 02/08/21 22:18 Antibiotics) Review of Systems Review of Systems: All systems reviewed & are unremarkable except as noted in HPI and below PMFSH Past Medical History Medical History Acute on chronic blood loss anemia Anticoagulant long-term use Asthma Atrial fibrillation CHF (congestive heart failure) CVA (cerebral vascular accident) Diabetes GERD (gastroesophageal reflux disease) History of coronary artery disease Hypercholesterolemia Hypertension IBS (irritable bowel syndrome) Surgical History Surgical History History of percutaneous coronary intervention Family History Family History Sibling Brain tumor Hypothyroidism Mother CAD (coronary artery disease) Social History Social History Smoking status: Never smoker Alcohol intake: never Substance use: never Spiritual care concerns: No Exam Narrative: GENERAL: Well-appearing, well-nourished, and in no acute distress. HEAD: Normocephalic, atraumatic EYES: PERRLA and EOMI, conjunctiva clear without discharge NECK: Supple, RESPIRATORY: No respiratory distress, Airway patent, Respirations non-labored, Clear to auscultation without rales, rhonchi or wheeze HEART: Regular rate and rhythm. No murmur heard. Normal peripheral pulses. ABDOMEN: Soft, nontender, nondistended, normal active bowel sounds. No masses. No rebound or guarding, No organomegaly. EXTREMITIES: No edema, right 3rd finger tip with small puncture wound, oozing blood SKIN: Warm, dry, normal color without rash NEURO: Alert and oriented x3. CN 2-12 grossly intact. No focal deficits. PSYCH: Normal mood and affect. Course Reevaluation(s) Reevaluation #1:
== END 2021-02-09 01:13 | disposition home or self-care (01) ==
PROVIDERS: Emergency Provider General Practice; PCP Family Medicine
DX: S61.232A Puncture wound without foreign body of right middle finger without damage to nail, initial encounter (principal); I48.91 Unspecified atrial fibrillation; I50.9 Heart failure, unspecified; I11.0 Hypertensive heart disease with heart failure; K21.9 Gastro-esophageal reflux disease without esophagitis; E11.9 Type 2 diabetes mellitus without complications; I25.10 Atherosclerotic heart disease of native coronary artery without angina pectoris; E78.00 Pure hypercholesterolemia, unspecified; J45.909 Unspecified asthma, uncomplicated; K58.9 Irritable bowel syndrome, unspecified; Z86.73 Personal history of transient ischemic attack (TIA), and cerebral infarction without residual deficits; Z79.82 Long term (current) use of aspirin; W46.0XXA Contact with hypodermic needle, initial encounter
CPT/HCPCS: 12001; 99281; 99282

== ENCOUNTER 2021-09-25 11:00 | Outpatient (RCR) | payer MEDICARE, SELFPAY | END 2021-10-16 07:20 | disposition home or self-care (01) | LOC: ANHCPREHAB 11:00 | PROVIDERS: PCP Family Medicine; Visit Provider Internal Medicine Cardiovascular Disease | DX: Z95.2 Presence of prosthetic heart valve (principal) | CPT/HCPCS: 93798 ==

== ENCOUNTER 2021-12-11 12:52 | Emergency (ER) | payer MEDICARE, SELFPAY ==
[2021-12-11 13:03] VITALS: BP 149/65; PULSE 99; RESP 18; TEMP 37.1; O2SAT 100
--- NOTE | 2021-12-11 13:28 | ED.GENADULT ---
HPI - General Adult General Chief complaint: Extremity Injury, Lower Stated complaint: lt hip pain Time Seen by Provider: 12/11/21 13:28 Source: patient and RN notes reviewed Mode of arrival: ambulatory Limitations: no limitations History of Present Illness HPI narrative: 81-year-old female presents with concern for left hip pain. Reports that she has not had any injury or fall. She reports history of similar pain in the past. She reports her pain is in her left low back/upper hip area and radiates down the buttock thigh and left lower leg. She reports she has been using heat and rest. Reports rest improves the pain, does not completely relieve the pain. She reports that she has been taking a small amount of Tylenol. She denies loss of bowel or bladder function, weakness in any extremity. Reports she has had to get injections in her spine years ago for similar pain. She denies bruising, redness, warmth, rash. MD complaint: Back pain Related Data Home Medications Medication Instructions Recorded Confirmed atorvastatin 10 mg tablet 10 mg PO DAILY 06/27/20 06/27/20 bumetanide 0.5 mg tablet 0.5 mg PO DAILY 06/27/20 06/27/20 famotidine 40 mg tablet 20 mg PO PRN PRN Acid Reflux 06/27/20 06/27/20 ferrous sulfate 1 tablet PO DAILY 06/27/20 06/27/20 levothyroxine 125 mcg tablet 125 mcg PO DAILY 06/27/20 06/27/20 potassium chloride 20 mEq 40 meq PO DAILY 06/27/20 06/27/20 tablet,extended release aspirin 81 mg tablet PO 06/30/21 empagliflozin 10 mg tablet 10 mg PO DAILY 06/30/21 06/30/21 (Jardiance) ergocalciferol (vitamin D2) 50,000 50,000 unit PO WEEKLY 06/30/21 06/30/21 unit tablet gabapentin 300 mg capsule 300 mg PO BID 06/30/21 06/30/21 metoprolol succinate 25 mg 25 mg PO DAILY 06/30/21 06/30/21 tablet,extended release 24 hr potassium chloride 20 mEq 20 meq PO BID 06/30/21 06/30/21 tablet,extended release spironolactone 25 mg tablet 12.5 mg PO DAILY 06/30/21 06/30/21 mirabegron 25 mg tablet,extended mg PO 12/11/21 release 24 hr (Myrbetriq) Allergies Allergy/AdvReac Type Severity Reaction Status Date / Time apixaban [From Eliquis] Allergy Rash Verified 02/08/21 22:18 oxycodone Allergy Stopped Verified 02/08/21 22:18 Breathing Penicillins Allergy Rash Verified 02/08/21 22:18 rivaroxaban [From Xarelto] Allergy Rash Verified 02/08/21 22:18 Sulfa (Sulfonamide Allergy Rash Verified 02/08/21 22:18 Antibiotics) Review of Systems Review of Systems: CONSTITUTIONAL: Denies malaise, chills, sweats, or fever. SKIN: Denies rash or itching, open skin, laceration, abrasion, redness, warmth, swelling. MUSCULOSKELETAL: Reports left knee pain NEUROLOGIC: Denies numbness, weakness All systems reviewed & are unremarkable except as noted in HPI and below PMFSH Past Medical History Medical History Acute on chronic blood loss anemia Anticoagulant long-term use Asthma Atrial fibrillation CHF (congestive heart failure) CVA (cerebral vascular accident) Diabetes GERD (gastroesophageal reflux disease) History of coronary artery disease Hypercholesterolemia Hypertension IBS (irritable bowel syndrome) Surgical History Surgical History History of percutaneous coronary intervention Family History Family History Sibling Brain tumor Hypothyroidism Mother CAD (coronary artery disease) Social History Social History Smoking status: Never smoker Alcohol intake: never Substance use: never Spiritual care concerns: No Comments At time of signature, agree with nursing past medical, surgical, social and family history. There is no relevant family history pertinent to the presenting complaint Exam Narrative: GENERAL: Well-appearing, well-nourished, and in no acute distress. HEAD: Normocephal
== END 2021-12-11 13:46 | disposition home or self-care (01) ==
PROVIDERS: Emergency Provider Nurse Practitioner; PCP Family Medicine
DX: M54.32 Sciatica, left side (principal); J45.909 Unspecified asthma, uncomplicated; I48.91 Unspecified atrial fibrillation; I11.0 Hypertensive heart disease with heart failure; I50.9 Heart failure, unspecified; Z86.73 Personal history of transient ischemic attack (TIA), and cerebral infarction without residual deficits; E11.9 Type 2 diabetes mellitus without complications; E78.00 Pure hypercholesterolemia, unspecified; D64.9 Anemia, unspecified
CPT/HCPCS: 99213; G0463

== ENCOUNTER 2024-11-03 08:46 | Outpatient (CLI) | payer MEDICARE, SELFPAY ==
--- OUTSIDE RECORDS SUMMARY | 2023-09-20 16:30 | XMS_ITS ---
Author Organization Ford [facility]iteside MD Address [address] [address] Care Team Providers Care Flagsetter Name Role Phone Rosendo Pike MD Primary Care Provider Ford De Guzman Unavailable [phone] Migration, Provider Unavailable Unavailable Allergies Allergen (clinical drug ingredient) Drug/Non Drug Allergy documented on EMR Reaction Allergy Type Onset Date Status SULFA (uncoded) Unknown Allergy Acti ve oxycodone oxyCODONE Unknown Drug Allergy Active Penicillin Unknown Drug Allergy Active [facility]ASON [facility]IS[facility] Encounter Medications Medication SIG (Take, Route, Frequency, Duration) Notes Start Date End Date Status Fluticasone Propionate (Inhal) *Please review and pick correct strength-formulat ion from [employer] options. If intended option is not shown, discontinue and re-order from Quick Search* Not-Taking Singulair *Please review and pick correct strength-formulat ion from [employer] options. If intended option is not shown, discontinue and re-order from Quick Search* Not-Taking Iron *Please review and pick correct strength-formulat ion from [employer] options. If intended option is not shown, discontinue and re-order from Quick Search* Not-Taking ALOE VERA, TOPICAL - 1 KRISHNA APPLIED TOPICALLY 2 TIMES A DAY; Duration: 10 DAY(S) *Please review for potential replacement for e-prescription and drug interaction check* 05/27/2017 Not-Taking RANITIDINE HYDROCHLORIDE 150 MG 1 CAP(S) ORALLY 2 TIMES A DAY; Duration: 30 DAYS *Please review for potential replacement for e-prescription and drug interaction check* 05/27/2017 Not-Taking MiraLax - 17 G ORALLY EVERY 15 MIN; Duration: 1 DAY(S) *Please review and pick correct strength-formulat ion from [employer] options. If intended option is not shown, discontinue and re-order from Quick Search* Not-Taking predniSONE *Please review and pick correct strength-formulat ion from [employer] options. If intended option is not shown, discontinue and re-order from Quick Search* Not-Taking Plavix 75 MG 1 tab(s) orally twice a day Not-Taking Metoprolol Succinate ER *Please review and pick correct strength-formulat ion from [employer] options. If intended option is not shown, discontinue and re-order from Quick Search* Not-Taking Lasix 20 MG 1 tab(s) orally once a day Kate Alvarado MA 07/24/2019 11:20:04 AM > 5mg Not-Taking Potassium *Please review and pick correct strength-formulat ion from [employer] options. If intended option is not shown, discontinue and re-order from Quick Search* Active Famotidine 40 MG 1 tab(s) orally bid; Duration: 90 Not-Taking ALPHAGAN Kate Alvarado MA 08/21/2019 10:15:12 AM > 0.1% twice a day *Please review for potential replacement for e-prescription and drug interaction check* Active Atorvastatin Calcium 10 MG 1 tab(s) orally once a day; Duration: 30 day(s) Active Lumigan Kate Alvarado MA 08/21/2019 10:15:46 AM > .01% one time at bedtime *Please review and pick correct strength-formulat ion from [employer] options. If intended option is not shown, discontinue and re-orde Active Pradaxa 75 MG 1 cap(s) orally 2 times a day Active hydrALAZINE HCl 50 MG 1 tab(s) orally 3 times a day Active Jardiance 10 MG 1 tab(s) orally once a day (in the morning) Active Levothyroxine Sodium 125 MCG 1 tab(s) orally once a day Active Bumetanide 0.5 MG 2 tab(s) orally once a day Active Carvedilol 12.5 MG 1 tab(s) orally 2 times a day Active Clopidogrel Bisulfate 75 MG 1 tab(s) orally once a day Active Allopurinol 300 MG 1 tab(s) orally once a day Not-Taking Gabapentin 300 MG 1 cap(s) orally 2 times a day Active Encounters Encounter Location Date Provider Diagnosis Ford Whiteside MD [address] [facility] [address] [place] [address] 09/20/2023 Provider Migration Plan Of Treatment No Information Progress Notes * Ildefonso KENOB:1940 (84 yo F)Acc No.[id number]:09/20/2023 Patient: Carol MADRID Provider: Juice dickerson Migration :1940 A ge:83 Y S ex:Female Date:09/20/2023 Address:[address] [place] [address] [id number] Pcp:Rosendo Pike MD Subjective: * Chief Complaints: * [facility] * Medical History: * Medications: T aking Gabapentin 300 MG Capsule 1 cap(s) orally 2 times a day , Taking Clopidogrel Bisulfate 75 MG Tablet 1 tab(s) orally once a day , Taking Carvedilol 12.5 MG Tablet 1 tab(s) orally 2 times a day , Taking hydrALAZINE HCl 50 MG Tablet 1 tab(s) orally 3 times a day , Taking Pradaxa 75 MG Capsule 1 cap(s) orally 2 times a day , Taking Levothyroxine Sodium 125 MCG Tablet 1 tab(s) orally once a day , Taking Jardiance 10 MG Tablet 1 tab(s) orally once a day (in the morning) , Taking Bumetanide 0.5 MG Tablet 2 tab(s) orally once a day , Taking ALPHAGAN , Notes to Pharmacist: Kate Alvarado MA 08/21/2019 10:15:12 AM > 0.1% twice a day *Please review for potential replacement for e-prescription and drug interaction check*, Taking Lumigan , Notes to Pharmacist: Kate Alvarado MA 08/21/2019 10:15:46 AM > .01% one time at bedtime *Please review and pick correct strength[facility]. If intended option is not shown, discontinue and re-orde, Taking Atorvastatin Calcium 10 MG Tablet 1 tab(s) orally once a day , Taking Potassium , Notes to Pharmacist: *Please review and pick correct strength-formulation from [employer] options. If intended option is not shown, discontinue and re-order from Quick Search*, Not-Taking/PRN Allopurinol 300 MG Tablet 1 tab(s) orally once a day , Not-Taking/PRN Famotidine 40 MG Tablet 1 tab(s) orally bid , Not-Taking/PRN Lasix 20 MG Tablet 1 tab(s) orally once a day , Notes to Pharmacist: Kate Alvarado, NIESHA 07/24/2019 11:20:04 AM > 5mg, Not-Taking/PRN predniSONE , Notes to Pharmacist: *Please review and pick correct strength-formulation from [employer] options. If intended option is not shown, discontinue and re-order from Quick Search*, Not-Taking/PRN MiraLax - POWDER FOR RECONSTITUTION 17 G ORALLY EVERY 15 MIN , Notes to Pharmacist: *Please review and pick correct strength-formulation from [employer] options. If intended option is not shown, discontinue and re-order from Quick Search*, Not-Taking/PRN Metoprolol Succinate ER , Notes to Pharmacist: *Please review and pick correct strength-formulation from [employer] options. If intended option is not shown, discontinue and re-order from Quick Search*, Not-Taking/PRN Plavix 75 MG Tablet 1 tab(s) orally twice a day , Not-Taking/PRN Iron , Notes to Pharmacist: *Please review and pick correct strength-formulation from [employer] options. If intended option is not shown, discontinue and re-order from Quick Search*, Not-Taking/PRN Singulair , Notes to Pharmacist: *Please review and pick correct strength-formulation from [employer] options. If intended option is not shown, discontinue and re-order from Quick Search*, Not-Taking/PRN RANITIDINE HYDROCHLORIDE 150 MG CAPSULE 1 CAP(S) ORALLY 2 TIMES A DAY , Notes to Pharmacist: *Please review for potential replacement for e-prescription and drug interaction check*, Not-Taking/PRN ALOE VERA, TOPICAL - GEL 1 KRISHNA APPLIED TOPICALLY 2 TIMES A DAY , Notes to Pharmacist: *Please review for potential replacement for e-prescription and drug interaction check*, Not-Taking/PRN Fluticasone Propionate (Inhal) , Notes to Pharmacist: *Please review and pick correct strength-formulation from [employer] options. If intended option is not shown, discontinue and re-order from Quick Search* * Allergies: P enicillin, SULFA, oxyCODONE. Objective: * Vitals: Assessment: Plan: * Treatment: * * Electronic signature of Yuliana tim Migration on 11/03/2024 at 06:55 AM [facility] Sign off status: Pending * Provider: Juice dickerson Migration Date: 09/20/2023 Generated for Dede rhoades/Starr/Karmaitting on: 11/03/2024 06:55 AM [facility]
--- NOTE | ~2024-11-03 | CT_ITS ---
EXAMINATION: CT sinus wo con DATE: 11/03/2024 09:01 INDICATION: Chronic sinusitis TECHNIQUE: Computed tomography (CT) of the paranasal sinuses was performed without intravenous contrast. The dose-length product was 276.23 mGy-cm. COMPARISON: None FINDINGS: There is mucosal thickening of the maxillary and ethmoid sinuses. There is rightward nasal septal deviation. 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 No mucoperiosteal reaction. Mastoids are pneumatized. No depressed skull fractures. There is intracranial atherosclerosis. IMPRESSION: 1. Moderate sinus disease of the maxillary and ethmoid sinuses. Reviewed, dictated and finalized at location O.
--- OUTSIDE RECORDS SUMMARY | 2024-11-03 08:54 | XMS_ITS | Patient Health Record ---
Author Organization [facility], Address [address] [place] [address] Care Team Providers Care Air Hammer Stripper Name Role Phone Rosendo Pike MD Primary Care Provider Charles Cid Unavailable [phone] Reason For Referral No Information Medications Medication SIG (Take, Route, Frequency, Duration) Notes Start Date End Date Status Lumigan (bimatoprost) 25; Duration: 25 INT 1 GTT INTO OU Q NIGHT HS 05/19/2018 Active Alphagan P (brimonidine) 06/11/2017 Active Levothyroxine 90; Duration: 90 TK 1 T PO ONCE A DAY 10/10/2017 Active Bumetanide 0.5 MG 90 Oral; Duration: 90 TK 1 T PO QD 08/02/2017 Active Hydralazine 06/11/2017 Active Jardiance (empagliflozin) 30; Duration: 30 TK 1 T PO D 10/10/2017 Active clopidogrel 06/11/2017 Active Carvedilol 6.25 MG Oral 06/11/2017 Active atorvastatin 07/21/2019 Active montelukast 12/04/2019 Active Gabapentin 90; Duration: 90 TK 1 C PO TID 01/30/2018 Active Albuterol Sulfate 1.25 MG/3ML Inhalation 12/04/2019 Active Pradaxa (dabigatran etexilate) 06/11/2017 Active Allopurinol 300 MG Oral 06/11/2017 Active Vitamin D2 (ergocalciferol (vitamin d2)) 06/11/2017 Active Problems Problem Type SNOMED Code ICD Code Onset Dates Problem Status W/U Status Risk Notes Problem Feeling of lump in throat (finding) (228596454) F45.8-Globus Sensation (F45.8) 01/23/20 19 Active confirmed Problem Cough (16246968) A64-Ltvve (R05) 02/08/20 Active confirmed Problem Gastroesophageal reflux disease (744175047) K21.9-LPR-Anali ngopharyngeal reflux (K21.9) 02/08/20 20 Active confirmed Problem Otalgia of left ear (finding) (5960020819) H92.02-Otalgia , left ear (H92.02) 07/21/19 Active confirmed Problem 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) 07/21/19 20 Active confirmed Problem Acute maxillary sinusitis (42956903) J01.00-Acute maxillary sinusitis, unspecified (J01.00) 03/09/19 17 Active confirmed Problem Allergic rhinitis (99194429) J30.89-Allergi c rhinitis (J30.89) 02/08/20 Active confirmed Problem Headache (78693954) H59-Rqnlbecg (R51) 12/25/19 Active confirmed Problem Acute sinusitis (80135940) J01.90-Acute sinusitis (J01.90) 05/28/19 19 Active confirmed Problem J34.1-Cyst and mucocele of nose and nasal sinus (J34.1) 07/21/19 Active confirmed Problem Impacted cerumen (49761680) H61.22-Cerumen Impaction, left ear (H61.22) 12/25/19 19 Active confirmed Problem Allergic rhinitis (64461097) J30.0-Vasomoto r rhinitis (J30.0) 02/08/20 20 Active confirmed Problem Deviated nasal septum (337075777) J34.2-Deviated nasal septum (J34.2) 07/01/19 Active confirmed Problem T17.1xxA-Forei gn body in nostril, initial encounter (T17.1xxA) 05/28/19 19 Active confirmed Problem Hypertrophy of nasal turbinates (33905928) J34.3-Hypertro phy of nasal turbinates (J34.3) 02/08/20 20 Active confirmed Problem Posterior rhinorrhea (75387851) R09.82-Postnas al drip (R09.82) 02/08/20 20 Active confirmed Problem Headache (70488372) O70-Xmhxy Headache (R51) 06/28/19 19 Active confirmed Problem Bleeding from nose (finding) (675159228) R04.0-Epistaxi s (R04.0) 04/23/19 19 Active confirmed Problem Chronic maxillary sinusitis (50600346) J32.0-Chronic maxillary sinusitis (J32.0) 02/08/20 20 Active confirmed Problem Acute sinusitis (disorder) (82421735) J01.80-Acute sinusitis (J01.80) 02/08/20 20 Active confirmed Plan Of Treatment No Information Insurance Providers Payer Name Payer Address Payer Phone Subscriber Number Group Number Insured Name Patient Relationship to Insured Coverage Start Date Coverage End Date [facility] [address] [address] [place] [address] [id number] Carol Ken Self - patient is the insured Medical (General) History Surgical History Surgery Date(Month/Year) cardiac stents 2006 Hand Gallbladder 1972 Myringotomy with tube(s) 2004 Shoulder surgery 2011
--- OUTSIDE RECORDS SUMMARY | 2024-11-03 08:55 | XMS_ITS | Clinical Summary ---
Author Organization [address] lt Address [address] [place] [address] Care Team Providers Care Barrel Burner Name Role Phone Kevin Serna MD Primary Care Provider [phone] Kevin Glez MD Unavailable [phone] Carline Fung MD Unavailable Jonathan Bills MD Unavailable [phone] Cortez Yen MD Unavailable [phone] Allergies Active Allergy Reactions Criticality Noted Date Comments Apixaban Itching,Rash Medium 06/27/2020 Mirabegron Swollen tongue High 03/27/2022 Oxycodone Shortness of breath High 06/26/2017 Penicillin Rash Medium 06/26/2017 Penicillin G Rash Medium Sulfa (Sulfonamide Antibiotics) Itching,Unknown Low 06/26/2017 Sulfamethoxazole-Trimethoprim Itching Low Rivaroxaban Itching Medium 08/30/2017 Medications LUMIGAN 0.01 % ophthalmic dropsIndications :open angle glaucoma Administer 1 drop into both eyes nightly 3 08/17/19 18 Active atorvastatin (LIPITOR) 10 mg tabletIndication s:hyperlipidemia Take 1 tablet (10 mg total) by mouth nightly Active aspirin 81 mg enteric coated tabletIndication s:prevention of thrombosis Take 1 tablet (81 mg total) by mouth every morning 07/24/19 21 Active spironolactone (ALDACTONE) 25 mg tabletIndication s:hypertension Take 1 tablet (25 mg total) by mouth daily before lunch 1/2 tablet daily 08/17/19 21 Active cholecalciferol (VITAMIN D-3) 50,000 unit capsuleIndicatio ns:Vitamin D Deficiency,on Saturdays Take 1 capsule (50,000 Units total) by mouth once a week Active acetaminophen 500 mg capsuleIndicatio ns:Fever,Pain Take 2 capsules (1,000 mg total) by mouth every 6 (six) hours as needed for pain 30 tablet 05/21/19 22 Active blood glucose diagnostic (glucose blood) strip Use to check blood sugar daily. 100 each 1 02/14/20 22 Active lancets misc Use to check blood sugar daily. 100 each 1 02/14/20 22 Active brimonidine (ALPHAGAN) 0.15 % ophthalmic solution 1 drop 2 (two) times a day 04/14/19 23 Active blood-glucose sensor device Use as directed to monitor blood sugars Dx: type 2 DM. 1 each 1 05/30/19 23 Active bumetanide (BUMEX) 1 mg tablet Take 1 tablet (1 mg total) by mouth daily Active glipiZIDE (GLUCOTROL) 5 mg tablet TAKE 1 TABLET(5 MG) BY MOUTH DAILY WITH FOOD 90 tablet 3 02/19/[address] (PROTONIX) 40 mg EC tablet Take 1 tablet (40 mg total) by mouth daily before breakfast 06/18/19 24 Active potassium chloride ER 20 mEq CR tablet Take 1 tablet (20 mEq total) by mouth 2 (two) times a day 05/16/19 24 Active glipiZIDE (GLUCOTROL) 5 mg tabletIndication s:type 2 diabetes mellitus Take 1 tablet (5 mg total) by mouth 2 (two) times a day before breakfast and lunch 180 tablet 3 10/29/19 24 Active ergocalciferol (VITAMIN D) 50,000 unit capsule Take 1 capsule (50,000 Units total) by mouth once a week 12 capsule 4 11/07/19 24 025 Active brimonidine (ALPHAGAN P) 0.1 % drops 1 drop 2 (two) times a day 12/26/19 24 Active benzonatate (TESSALON) 200 mg capsuleIndicatio ns:Acute non-recurrent pansinusitis Take 1 capsule (200 mg total) by mouth 3 (three) times a day as needed for cough 30 capsule 02/12/20 24 Active Jardiance 10 mg tablet TAKE 1 TABLET(10 MG) BY MOUTH DAILY 90 tablet 3 02/17/20 24 Active ondansetron (ZOFRAN) 4 mg tablet Take 1 tablet (4 mg total) by mouth every 6 (six) hours 12 tablet 05/05/19 25 Active levothyroxine (SYNTHROID) 100 mcg tablet TAKE 1 TABLET(100 MCG) BY MOUTH DAILY 100 tablet 1 05/16/19 25 Active carvediloL (COREG) 3.125 mg tablet Take 1 tablet (3.125 mg total) by mouth 2 (two) times a day with meals 06/20/19 25 Active gabapentin (NEURONTIN) 300 mg capsule TAKE 2 CAPSULES(600 MG) BY MOUTH TWICE DAILY 400 capsule 1 09/08/19 25 Active clotrimazole-bet amethasone (LOTRISONE) cream APPLY EXTERNALLY TO THE AFFECTED AREA OF VULVA TWICE DAILY 90 g 1 11/04/19 25 Active clotrimazole-bet amethasone (LOTRISONE) cream Apply externally to affected area of vulva twice daily 90 g 1 08/13/19 24 025 Discontinued Active Problems Problem Noted Date Diagnosed Date Hypertension associated with diabetes 05/26/2024 Assessment & Plan (05/26/2024 10:19 AM CDT): As above. Subacute cough 05/26/2024 Assessment & Plan (05/26/2024 10:19 AM CDT): Chbeck CXR and given duration witll treat empriically for sinusits/bronchitis. Medicare annual wellness visit, subsequent 02/17 Assessment & Plan (02/18/2024 11:09 AM DIRECTOR NEWS): FOcus of exam is prevnetative in nature. Reivewed immunizations, reviewed sun/skin cancer screenign. Reviewed age and comorbid appopriate screening recommendations. Abnormality of gait due to impairment of balance 01/09/2024 Cirrhosis 01/09/2024 Bowel habit changes 01/09/2024 Constipation 01/09/2024 Diverticulosis 01/09/2024 Elevated liver function tests 01/09/2024 Erythrocytosis 01/09/2024 Esophageal varices 01/09/2024 Assessment & Plan (05/26/2024 10:19 AM CDT): F/u with GI. Assessment & Plan (02/18/2024 11:08 AM DIRECTOR NEWS): As above. GAVE (gastric antral vascular ectasia) Assessment & Plan (02/18/2024 11:07 AM DIRECTOR NEWS): Sees GI tomorrow and iwll monitor response. Hyperglycemia, unspecified 01/09/2024 Iron deficiency anemia 01/09/2024 Assessment & Plan (02/18/2024 11:08 AM DIRECTOR NEWS): [place] f/u with hematology at [facility] and will monitor rseponse. 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 Antiplatelt therapy and statin therapy. Bleeding from wound 09/19/2021 Congestive heart failure 09/19/2021 Assessment & Plan (05/26/2024 10:19 AM CDT): NO s/s of fluid overlaod. IWll continue to follow reposnse. Seeing cardiology. Assessment & Plan (02/18/2024 11:07 AM DIRECTOR NEWS): COntinue f/u with cardiology. Encourage use of bumetanide and spironolactone on daily basis. Continue to monitor daily weights. Hyperkalemia 09/19/2021 Hyperuricemia 09/19/2021 Syncope 09/19/2021 UTI (urinary tract infection) 09/19/2021 Vitamin D deficiency 09/19/2021 Hypothyroid 05/18/2021 Assessment & Plan (02/18/2024 11:06 AM DIRECTOR NEWS): Clinically euthryoid. WIll follow response. Assessment & Plan (05/19/2021 9:23 AM CDT): -continue home Synthroid GERD (gastroesophageal reflux disease) Assessment & Plan (02/18/2024 11:08 AM DIRECTOR NEWS): Continue on pantorpazole and will follow response. Assessment & Plan (05/19/2021 9:24 AM CDT): -continue home Famotidine Glaucoma primary, open angle 05/18/2021 Assessment & Plan (02/18/2024 11:07 AM DIRECTOR NEWS): Continue f/u with ophthalmology and will montior response. Assessment & Plan (05/19/2021 9:24 AM CDT): -continue home Alphagan, Lumigan Hyperlipidemia 05/18/2021 Assessment & Plan (05/19/2021 9:24 AM CDT): -continue Aspirin 81, Atorvastatin 10 Acute on chronic congestive heart failure 2021 Assessment & Plan (05/19/2021 9:23 AM CDT): -Bumex 1 mg IV this am -control Toprol XL -holding POLO/ARBs for immediate post-operative period given contrast load and renal toxicity -monitor fluid volume status-continue diuresis -daily weights Atrial fibrillation 09/19/2020 Assessment & Plan (05/26/2024 10:18 AM CDT): COntinus in NSR. NO DOAC given bleeding diatheses. Assessment & Plan (05/19/2021 9:12 AM CDT): -s/p watchman -continue Toprol XL 25 daily -Monitor on telemetry, 12 L ECG telemetry Acute GI bleeding 08/22/2020 Assessment & Plan (08/22/2020 5:47 PM CDT): Had acute GI bleed found while at [facility]. Had colonoscopy 07/2020. +guaic today in office. msg left for CM at [facility] to get contact info for GI that did scope on Mrs Ken when admitted. Referral to [facility] Dr Avelar to hopefully get her in. Reviewed [facility] ER red flags, if unable to get into GI--will need to go to ER for eval. not aware. Will discuss w/him tonight. ALEX (acute kidney injury) 08/22/2020 Anticoagulant long-term use 08/22/2020 Dyslipidemia associated with type 2 diabetes camila litus 08/22/2020 Assessment & Plan (05/26/2024 10:18 AM CDT): COntinues on atorvastaitn and will follow response. Seeing cardiology this aftenroon. Assessment & Plan (02/18/2024 11:07 AM DIRECTOR NEWS): Stab;le on atrovastatin and will follow response. No new myalgias/arthralgias. Assessment & Plan (08/22/2020 12:01 PM CDT): Atorvastatin 10mg daily. 08/22/20 TC=<100 HDL=26 ldl=60.4 TC/HDL=3.8 Copy of results given to Carol Ken. Reviewed results at time of appointment. Patient should focus on limiting bad fats in the diet and using exercise as a way to improve the lipid status. Secondary prevention. Reviewed medications. Denies any statin Ses. Reviewed diet/exercise recommendations. Reviewed red flags. Essential hypertension 08/22/2020 Assessment & Plan (05/19/2021 9:19 AM CDT): Home regimen: Aldactone 25mg, Metop XL 25mg, Bumex 1 mg -keep SBP < 160 post-operatively -hold POLO and ARBs due to renal toxicity following TAVR during which contrast is given -currently BP well controlled ->use hydralazine for BP control if needed Assessment & Plan (08/22/2020 5:46 PM CDT): The blood pressure is under good control. Ideally it should be under 130/80. Continue medications without adjustment. Continue efforts to eat well (4-5 fruits and veggies) daily and exercise for about 30 min nearly every day. Watch salt intake, keeping to less than 2000mg per day. Limit alcohol. Include strategies to cope with stress. Encounter for osteoporosis s creening in asymptomatic postmenopausal patient 08/22/2020 Assessment & Plan (08/22/2020 5:47 PM CDT): DEXA ordered. Will contact with results once received. Type 2 diabetes mellitus wit h diabetic neuropathy, without long-term current use of insulin ([facility]) 08/22/2020 Assessment & Plan (05/26/2024 10:18 AM CDT): Continues on gabapentin and will follwor esponse. NO change at the presnt time. Assessment & Plan (02/18/2024 11:06 AM DIRECTOR NEWS): Seocndary prevention. REviewed glycemic control targets and will follow response. Continue on blood sugar control. Reviwed use of glipizide and jardiance. WIll follow response. Reviwed recent triggers for exacerbation with sinus infection and prednisone usage for joints. Assessment & Plan (05/19/2021 9:19 AM CDT): Hold jardiance while in patient -[facility] started during this admission (05/16) -consistent carb diet Assessment & Plan (08/22/2020 5:45 PM CDT): Lab Results Component Value Date HGBA1C 5.2 % 08/22/2020 Copy of results given to Carol Ken. Reviewed results at time of appointment. Reviewed dietary/exercise recommendations. Instructed to perform daily foot check. Reviewed medication side effects & scheduling. To check/record FSBS & bring to appointments. Labs ordered; will call with results when received. To make follow up appointment in 3 months. Reviewed red flags; what would warrant further evaluation. BMI 23.0-23.9, adult 08/22/2020 Assessment & Plan (08/22/2020 5:47 PM CDT): Discussed healthy diet and importance of regular physical activity. BMI is acceptable for this patient. CKD stage 2 due to type 2 diabetes mellitus 07/03 Assessment & Plan (05/26/2024 10:18 AM CDT): COntinue aggressive bp control and glycemc control. Assessment & Plan (02/18/2024 11:06 AM DIRECTOR NEWS): Reviwed aggressive blood pressure and glycemic control. Cervical disc disorder 03/25/2019 Chronic ischemic heart disease 07/18/2013 Overview (06/07/2016): CHR ISCHEMIC HRT DIS NOS Nonrheumatic tricuspid valve regurgitation Assessment & Plan (05/19/2021 9:22 AM CDT): TTE/LYRIC from 04/2021 is notable for LVEF of 62%, severe tricuspid regurgitation, and mild mitral regurgitation. PE notable for +JVD, LE edema. - 05/18 tricuspid clip (CLASP II trial) -Diuresis: Bumex 1mg bid; FBG: -1-2L Bumex 1 mg IV x1 this am -continue home Metoprolol Succinate 25 daily, Spironolactone 25 daily -started on Farxiga during this admission (05/16) -strict I&Os, daily weight, daily fluid restriction < 1.5L, K>4 Mg>2 -AC with ASA. Resume Plavix today Resolved Problems Problem Noted Date Diagnosed Date Resolved Date Thrombocytopenia 09/19/2021 11/10/2023 CKD (chronic kidney disease), stage III 05/18/2021 11/10/2023 Assessment & Plan (05/19/2021 9:25 AM CDT): Renally dose medications -trend with daily BMP -monitor fluid balance Acute respiratory failure with hypoxemia 08/22/2020 08/22/2020 Hypertension 07/18/2013 08/22/2020 Overview (06/07/2016): HYPERTENSION NOS Encounters Date Type Department Care Team Description 08/12/2024 Telephone [facility] [address] [facility] [place] [address] Clover Melo MA Chart Review ([employer] [facility]) from Last 3 Months Immunizations Immunization Administration Dates Next Due Influenza, Quad, Adjuvantate d, Intramuscular 12/17/2022 Influenza, Quadrivalent, Hig h Dose, Preservative Free, Intrr 12/17/2022,12/13/2021,12/19/2020 Influenza, Quadrivalent, Spl it, Intramuscular 01/03/2020,11/02/2018,11/02/2017 Influenza, Split 11/17/2012 Influenza, Trivalent, High D ose, Split, Preservative Free, Intramuscular 12/23/2023,11/27/2021 Influenza, Trivalent, IM (MDV) 11/17/2012 Influenza, Unspecified 12/03/2023,2023(Deferred: Patient Refused),12/06/2020,11/13/2016 Pneumococcal Conjugate PCV 13 11/02/2018 Pneumococcal Conjugate, Unspecified 06/2020(Deferred: Patient Refused),03/04/2019(Deferred: Patient Refused) Pneumococcal Polysaccharide PPV23 11/27/2021, Pneumococcal, Unspecified 11/02/2017 RSV Vaccine, Pref, Recombina nt, Subunit, Adjuvanted, PF, IM (Arexvy) 11/20/2023 Sars-cov-2 Covid-19 Mrna, Bi valent, Original/omicron Ba.1 12/12/2022 Tdap 2022 Surgical History Surgery Date Site/Laterality Comments CHOLECYSTECTOMY Cholecystectomy CORONARY ARTERY BYPASS GRAFT 03/04/2005 - 03/03/2006 CABG SHOULDER ARTHROSCOPY 03/04/1999 - 03/03/2000 Left Arthroscopy shoulder OTHER SURGICAL HISTORY 07/02/2020 - 08/01/2020 Implantable loop recorder HAND SURGERY FOOT SURGERY TRICUSPID VALVE SURGERY Medical History Medical History Date Comments Osteoarthritis Osteoarthritis Asthma Asthma Gastroesophageal reflux disease GERD Cardiac disease Heart disease Hypertension Hypertension Hx Other Medical 2010 cataracts Hx Other Medical 1971 toe surgery Hx Other Medical 1989 foot surgery Hx Other Medical 1992 removed spur lt hand Chronic kidney disease GI bleed Heart attack (HCC) Irregular heartbeat Stroke (HCC) Deep vein thrombosis (HCC) Peripheral neuropathy Thyroid disease Anemia Sleep apnea Family History Medical History Relation Name Comments Coronary artery disease Father Nura narhannah artery disease; Cancer Other 1 Family history of Cancer -; Diabetes type II Other 2 Family hist ory of Diabetes -Type II; Hypertension Other 3 Family history of Hypertension; Kidney disease Other 4 Family histor y of Renal disease; Stroke Other 5 Family history of Stroke; Dementia Other 6 Family history of Dementia; Thyroid disease Other 7 Family histo ry of Thyroid disorder; Osteoarthritis Other 8 Family histor y of Osteoarthritis; Alcohol abuse Other 9 Arthritis Other 9 Deep vein thrombosis Other 9 Diabetes Other 9 Other Other 9 Family history of Brain tumor; No Known Problems Son 1 Ryan No Known Problems Son 2 José Miguel Breast cancer Neg Hx Relation Name Status Comments Brother Mehdi (Age 75) Father Mother Other 1 Other 2 Other 3 Other 4 Other 5 Other 6 Other 7 Other 8 Other 9 Sister 1 Thora Other Sister 2 Minerva (Age 71) Sister 3 Anamika (Age 80) Son 1 Ryan Alive Son 2 José Miguel Alive Social History Tobacco Use Types Packs/Day Years Used Date Smoking Tobacco: Never Smokeless Tobacco: Never Tobacco Cessation:Counseling Given: Not Answered Alcohol Use Standard Drinks/Week Comments No 0 (1 standard drink = 0.6 oz pur e alcohol) AUDIT-C Answer Date Recorded Q1: How often do you have a drink containing alc ohol? Never 05/10/2021 Average Number of Drinks Not on file 022 Q3: How often do you have si x or more drinks on one occasion? Never 05/10/2021 PHQ-2 Answer Date Recorded PHQ-2 Total Score (If total score is 3 or more points, staff should administer the PHQ-9) 0 05/26/2024 Personal Safety Answer Date Recorded Have you ever been in or are you currently in a harmful physical or emotional relationship or is someone making you feel afraid or unsafe? Denies 05/04/2024 Comments No Sex and Gender Information Value Date Recorded Sex Assigned at Not on file Legal Sex Female 12:23 AM DIRECTOR NEWS Gender Identity Female 04/07/2021 10:21 AM DIRECTOR NEWS Sexual Orientation Straight 04/07/2021 10 :21 AM DIRECTOR NEWS Obstetrics History Para Term AB IAB SAB Ectopic Multiple Livin g Live Births 4 2 2 Date Outcome GA Total Labor Labor/2nd/3rd Weight Sex Type Anes PTL Saba A1 A5 Name Clin Term Term Last Filed Vital Signs Vital Sign Reading Time Taken Comments Blood Pressure 118/69 06/29/2024 2:24 PM CDT Pulse 78 06/29/2024 2:24 PM CDT Temperature 36.7 C (98.1 F) 05/26/2024 9:48 AM CDT Respiratory Rate 18 05/04/2024 5:45 PM DIRECTOR NEWS Oxygen Saturation 97% 06/29/2024 2:24 PM CDT Inhaled Oxygen Concentration - - Weight 61.9 kg (136 lb 6.4 oz) 06/29/2024 2:24 P M CDT Height 157.5 cm (5' 2) 06/29/2024 2:24 PM CDT Body Mass Index 24.95 06/29/2024 2:24 PM CDT Plan of Treatment Health Maintenance Due Date Last Done Comments Hepatitis B Screening 02/10/1958 Zoster Vaccine (1 of 2) 02/10/1992 Foot Exam 08/22/2021 08/22/2020 Lipid Panel 01/30/2024 01/29/2023, 1211/2021, 05/16/2021, Additional history exists Hemoglobin A1C 09/07/2024 03/10/2024, 10/03, 08/13/2023, Additional history exists Covid-19 Vaccine (2023-2 5 season) 2024 11/20/2023, 12/12/2022, 12/12/2022, Additional history exists Influenza Vaccine (#1) 2024 4, 12/03/2023, 12/17/2022, Additional history exists Osteoporosis Screening-Bone Density Scan 01/18/2025 01/18/2023, 12/05/2020 Well Visit 65+ 02/17/2025 02/18/2024, 01/03, 09/19/2021 Albumin Creatinine Ratio, Urine 03/10/2025 , 01/29/2023 Depression Screening 05/26/2025 05/26/2024, 02/18/2024, 10/29/2023, Additional history exists Fall Risk Assessment 05/26/2025 05/26/2024, 02/18/2024, 10/29/2023, Additional history exists Dilated Eye Exam 06/25/2025 06/26/2023, 09/2022, 07/26/2021 eGFR 06/29/2025 06/29/2024, 03/0 05/2024, 03/10/2024, Additional history exists DTaP/Tdap/Td Vaccine (2 - Td or Tdap) 02/10/2032 2022 Pneumococcal vaccine 65+ Completed 022, 11/02/2018, 11/02/2017, Additional history exists Medical Devices Implanted Type Area Curing Machine Operator Device Identifier Shelf Expiration Date Model / Serial / Lot [id number] (Clasp Ii Tr) 5mm Wenceslao Oplo Valve Repair Implant Irb [id number] - [id number] - [id number] Implanted:Qty: 1 on 05/18/2021 by Jonathan Bills MD at [facility] Clip Tricuspid Valve [employer] 12/07/2021 [id number] CL / [id number] / [id number] (Clasp Ii Tr) 5mm Wenceslao Polo Valve Repair Implant Irb [id number] - [id number] - [id number] Implanted:Qty: 1 on 05/18/2021 by Jonathan Bills MD at [facility] Clip Tricuspid Valve [employer] 12/07/2021 [id number] CL / [id number] / Implantable Loop Recorder Implantable Loop Recorder Chest Wall Watchman Device Other - see comments Heart Description:Watchman Cardiac Stents Implanted:Qty: 4 Heart Procedures Procedure Name Priority Date/Time Associated Diagnosis Comments BASIC METABOLIC PANEL Routine 06/29/2024 3:42 PM CDT Nonrheumatic tricuspid valve regurgitation HEMOGLOBIN A1C Routine 03/10/2024 11:13 AM DIRECTOR NEWS Type 2 diabetes mellitus with diabetic neuropathy, without long-term current use of insulin (HCC) ALBUMIN CREATININE RATIO, URINE Routine 03/10/2024 11:13 AM DIRECTOR NEWS Type 2 diabetes mellitus with diabetic neuropathy, without long-term current use of insulin (HCC) DIABETIC EYE EXAM Routine 06/26/2023 LIPID PANEL Routine 01/29/2023 10:19 AM DIRECTOR NEWS Type 2 diabetes mellitus with diabetic neuropathy, without long-term current use of insulin (HCC) DEXA AXIAL SKELETON BONE DENSITY 1 OR MORE SITES Schedule Routine, Read Routine (OP Routine) 01/18/2023 1:14 PM DIRECTOR NEWS Asymptomatic menopausal state from Last 3 Months or Most Recently Relevant to Health Maintenance Results * (ABNORMAL) Basic metabolic panel (06/29/2024 3:42 PM CDT) Glucose 194(H) 64 - 99 mg/dL [facility] Comment: NONFASTING GLUCOSE RANGE = 64-199 mg/dL FASTING GLUCOSE 64 - 99 = NORMAL FASTING GLUCOSE 100 - 125 = IMPAIRED FASTING GLUCOSE FASTING GLUCOSE >=126 = PROVISIONAL DIAGNOSIS OF DIABETES Potassium 4.9 3.3 - 5.1 mmol/L [facility] Creatinine 0.94 0.60 - 1.10 mg/dL [facility] BUN 27(H) 7 - 23 mg/dL [facility] Sodium 139 135 - 145 mmol/L [facility] Chloride 107 95 - 107 mmol/L [facility] CO2 Content 23 21 - 29 mmol/L [facility] Calcium 9.2 8.6 - 10.3 mg/dL [facility] eGFR 60.6 >60.0 mL/min/1.7 3 m2 [facility] Blood 06/29/2024 3:42 PM CDT 06/29/2024 4:21 PM CDT us Jonathan Bills MD LAB BLOOD ORDERABLES Final Resu lt [facility] * Albumin Creatinine Ratio, Urine (03/10/2024 11:13 AM DIRECTOR NEWS) Albumin Ur <12.0 mg/L Comment: Interpretive Data No reference range established. Current interpretive data was last revised 2018. Creatinine Ur 68.6 mg/dL [facility] Comment: Interpretive Data No reference range established. Current interpretive data was last revised 2018. Albumin Creatinine Ratio, Ur <17 1 - 29 mg/g [facility] Urine 03/10/2024 11:1 3 AM DIRECTOR NEWS 03/10/2024 2:35 PM DIRECTOR NEWS Kevin Serna MD LAB URINE ORDERABLES Nicole l Result Performing Organization Address [facility] [place] [id number] [address] [place] [address] * (ABNORMAL) Hemoglobin A1c (03/10/2024 11:13 AM DIRECTOR NEWS) Hgb A1C 6.9(H) 4.0 - 5.6 % Estimated Average Glucose 151 mg/dL [facility] Comment: The ADA recommends reporting an estimated Average Glucose (eAG) with all Hemoglobin A1c results using the equation derived from a study of 507 normal and diabetic adults. Minority populations were underrepresented and children were not included. (Diabetes Care 31:4945-4663, 2008). The eAG is not equivalent to a fasting glucose. Blood 03/10/2024 11:1 3 AM DIRECTOR NEWS 03/10/2024 2:35 PM DIRECTOR NEWS Kevin Serna MD LAB BLOOD ORDERABLES Nicole l Result Performing Organization Address [facility] de Phone Number SUSANNAHDEEPTHI [id number] [place] [place] [address] * Diabetic Eye Exam (06/26/2023) Historical Provider HEALTH MAINTENANCE Final Result * (ABNORMAL) Lipid panel (01/29/2023 10:19 AM DIRECTOR NEWS) Cholesterol 96 30 - 199 mg/dL [facility] Comment: Interpretive Data Ages < or = 19 years Acceptable: <170 mg/dL Borderline high: 170-199 mg/dL High: >or= 200 mg/dL Ages > or = 20 years Desirable: <200 mg/dL Borderline high: 200-239 mg/dL High: >or= 240 mg/dL Literature References: 1. Expert Panel on Integrated Guidelines for Cardiovascular Health and Risk Reduction in Children and Adolescents. Pediatrics 2011;128:S213 2. NCEP Expert Panel. Circulation 2004;110:227 Current Interpretive Data was last revised on 2017. Triglycerides 83 <=149 mg/dL [facility] Comment: Interpretive Data Ages < or = 9 years Acceptable: <75 mg/dL Borderline high: 75-99 mg/dL High: >or= 100 mg/dL Ages 10 to 20 years Acceptable: <90 mg/dL Borderline high: 90-129 mg/dL High: >or= 130 mg/dL Ages > or = 20 years Desirable: <150 mg/dL Borderline high: 150-199 mg/dL High: 200-499 mg/dL Very high: >or= 499 mg/dL Literature References: 1. Expert Panel on Integrated Guidelines for Cardiovascular Health and Risk Reduction in Children and Adolescents. Pediatrics 2011;128:S213 2. NCEP Expert Panel. Circulation 2004;110:227 Current Interpretive Data was last revised on 2017. HDL 35(L) >=40 mg/dL [facility] Comment: Interpretive Data Ages < or = 19 years Acceptable: >45 mg/dL Borderline low: 40-45 mg/dL Low: <40 mg/dL Ages > or = 20 years Desirable: >or= 60 mg/dL Low: <40 mg/dL Literature References: 1. Expert Panel on Integrated Guidelines for Cardiovascular Health and Risk Reduction in Children and Adolescents. Pediatrics 2011;128:S213 2. NCEP Expert Panel. Circulation 2003;110:227 Current Interpretive Data was last revised on 2017. LDL, calculated 44 <=129 mg/dL CK Comment: Interpretive Data Ages < or = 19 years Acceptable: <110 mg/dL Borderline high: 110-129 mg/dL High: >or= 130 mg/dL Ages > or = 20 years Optimal: <100 mg/dL Near optimal: 100-129 mg/dL Borderline high: 130-159 mg/dL High: >160 mg/dL Literature References: 1. Expert Panel on Integrated Guidelines for Cardiovascular Health and Risk Reduction in Children and Adolescents. Pediatrics 2011;128:S213 2. NCEP Expert Panel. Circulation 2004;110:227 Current Interpretive Data was last revised on 2017. Non-HDL Cholesterol 61 mg/dL [facility] [place] Comment: Interpretive Data Ages < or = 19 years Acceptable: <120 mg/dL Borderline high: 120-144 mg/dL High: >145 mg/dL Ages > or = 20 years When triglycerides are >200 mg/dL, Non-HDL cholesterol is a secondary target of therapy with treatment goals that are 30 mg/dL greater than the LDL cholesterol target. Literature References: 1. Expert Panel on Integrated Guidelines for Cardiovascular Health and Risk Reduction in Children and Adolescents. Pediatrics 2011;128:S213 2. NCEP Expert Panel. Circulation 2004;110:227 Current Interpretive Data was last revised on 2017. Chol/HDL ratio 3 CK Blood 01/29/2023 10:1 9 AM DIRECTOR NEWS 01/29/2023 2:10 PM DIRECTOR NEWS us Kevin Serna MD [place] [address] [address] [place] [address] * Dexa Axial Skeleton Bone Density 1 Or 2 Site (01/18/2023 1:14 PM DIRECTOR NEWS) Anatomical Region Laterality Modality Body N/A Other 01/21/2023 6:59 AM DIRECTOR NEWS Narrative 01/21/2023 7:01 AM DIRECTOR NEWS EXAM DESCRIPTION: DEXA AXIAL SKELETON BONE DENSITY 1 OR MORE SITES REASON FOR STUDY: 82 y/o year old F with given history of: Postmenopausal status. 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: [employer] ([id number]/N [id number]) CLINICAL INFORMATION: Current height: 62 inches Maximum height: 62 inches Weight: 130 pounds Risk factors: None COMPARISON: None available FINDINGS: AP LUMBAR SPINE L1-L4: Total BMD is 1.141 g/cm2 T-score is 0.9 LEFT HIP: Total BMD is 0.739 g/cm2 T-score is -1.7 Femoral neck BMD is 0.638 g/cm2 T-score is -1.9 FRAX: 10 year risk for a major osteoporotic fracture is 15 %, 10 year risk for a hip fracture is 4.2 % IMPRESSION: Low bone mass REFERENCE: Bone mineral density: Normal (T-score above or = -1.0) Low bone mass (T-score between -1.0 and -2.5) replaces the previously used term osteopenia Osteoporosis (T-score = or below -2.5) Medical evaluation for secondary causes of low bone mineral density may be appropriate. FRAX is a World Health Organization validated fracture risk assessment tool that calculates a person's 10 year probability of a major osteoporosis related fracture and hip fracture. According to the National Osteoporosis Foundation guidelines, postmenopausal women and men age 50 or older with low bone mass and a 10 year probability of a major osteoporosis related fracture = or greater than 20% or a 10 year probability of a hip fracture = or greater than 3% should be considered for treatment. For further information, including treatment recommendations, please refer to the 2019 ISCD Official Positions (http://www.iscd.org) and the NOF's Clinician's Guide to Prevention and Treatment of Osteoporosis (http://www.nof.org/professionals/clinical-guidelines) THIS IS AN ELECTRONICALLY VERIFIED FINAL REPORT 01/21/2023 7:01 AM - Electronically signed by Shira Gandara M.D. TW: FABRICIO Report ID: [id number] Reading Location: [id number] Procedure Note Shira Gandara MD - 01/21/2023 EXAM DESCRIPTION: DEXA AXIAL SKELETON BONE DENSITY 1 OR MORE SITES REASON FOR STUDY: 82 y/o year old F with given history of:Postmenopausal status. 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: [employer] ([id number]/N [id number]) CLINICAL INFORMATION: Current height: 62 inches Maximum height: 62 inches Weight: 130 pounds Risk factors: None COMPARISON: None available FINDINGS: AP LUMBAR SPINE L1-L4: Total BMD is 1.141 g/cm2 T-score is 0.9 LEFT HIP: Total BMD is 0.739 g/cm2 T-score is -1.7 Femoral neck BMD is 0.638 g/cm2 T-score is -1.9 FRAX: 10 year risk for a major osteoporotic fracture is 15 %, 10 year risk for ahip fracture is 4.2 % IMPRESSION: Low bone mass REFERENCE: Bone mineral density: Normal (T-score above or = -1.0) Low bone mass (T-score between -1.0 and -2.5) replaces thepreviously used term osteopenia Osteoporosis (T-score = or below -2.5) Medical evaluation for secondary causes of low bone mineral density may be appropriate. FRAX is a World Health Organization validated fracture risk assessmenttool that calculates a person's 10 year probability of a major osteoporosisrelated fracture and hip fracture. According to the National OsteoporosisFoundation guidelines, postmenopausal women and men age 50 or older with low bonemass and a 10 year probability of a major osteoporosis related fracture = or greater than 20% or a 10 year probability of a hip fracture = or greaterthan 3% should be considered for treatment. For further information, including treatment recommendations, please referto the 2019 ISCD Official Positions (http://www.iscd.org) and the NOF's Clinician's Guide to Prevention and Treatment of Osteoporosis (http://www.nof.org/professionals/clinical-guidelines) THIS IS AN ELECTRONICALLY VERIFIED FINAL REPORT 01/21/2023 7:01 AM - Electronically signed by Shira Gandara M.D. TW: FABRICIO Report ID: [id number] Reading Location: [place] [address] Kevin Serna MD IMG DXA PROCEDURES Final Result from Last 3 Months or Most Recently Relevant to Health Maintenance Insurance T MEDICARE [facility] MEDICARE MEDICARE [facility] MEDICARE [facility] MEDICARE [facility] MEDICARE Advance Directives For more information, please contact: [phone] * Full Code (Latest Code Status on File) Date Activated Date Inactivated Comments 05/15/2021 3:13 PM 05/20/2021 6:10 PM Care Teams Barrel Burner Relationship Specialty Start Date End Date Kevin Serna MD [address] [place] [address] PCP - General 06/19/11 Kevin Glez MD [address] [place] [address] Referring Physician Cardiovascular Disease 07/25/20 Carline Fung MD [address] [place] [address] Surgeon Cardiothoracic Surgery 05/20/21 Jonathan Bills MD [address] [place] [address] Referring Physician Cardiology 05/20/21 Cortez Yen MD [address] [place] [address] Telegraph Installer Cardiology 06/19/21
--- OUTSIDE RECORDS SUMMARY | 2024-11-03 08:55 | XMS_ITS | Patient Health Record ---
Author Organization [facility] Address [address] [place] [address] Care Team Providers Care Handbag Stitcher Name Role Phone Kevin Serna Primary Care Provider Fanta Pollock MD, [facility] [phone] ALLERGIES Allergen (clinical drug ingredient) Drug/Non Drug Allergy documented on EMR Reaction Allergy Type Onset Date Status Penicillin Unknown Drug Allergy Active Substance with sulfonamide structure and antibacterial mechanism of action (substance) Sulfa Antibiotics Unknown Drug Allergy Active oxycodone Oxycodone Unknown Drug Allergy Active apixaban Eliquis Unknown Drug Allergy Active rivaroxaban Xarelto Unknown Drug Allergy Activ e REASON FOR REFERRAL No Information MEDICATIONS Medication SIG (Take, Route, Fr equency, Duration) Notes Start Date End Date Status Gabapentin Active Potassium Active Vitamin D-3 Active Metoprolol Succinate Active Atorvastatin Calcium Active Bumetanide Active Alphagan P Active Myrbetriq Active Aspirin 81 Active Lumigan Active Jardiance Active Spironolactone Activ e Levothyroxine Sodium Active IMMUNIZATIONS Vaccine Route Administration Date Status Comme nts Influenza Unknown 11/27/2021 Administered pneumoccocal Unknown 11/27/2021 Administered SOCIAL HISTORY Tobacco Use: Social History Observation Description Date Details (start date - stop date) Never Smoker NA - NA Sex Assigned At : Social History Observation Description Sex Assigned At Unknown Tobacco Use: Question Answer Notes Patient is a: nonsmoker Alcohol screening: Question Answer Notes Did you have a drink containing alcohol in the p ast year? No Points 0 Interpretation Negative PROBLEMS Problem Type ICD Code Onset Dates Problem Status W/U Status Risk SNOMED Code Notes Problem Primary osteoarthriti s, right shoulder (M19.011) 11/27/2021 Active confirmed [id number] PLAN OF TREATMENT No Information Insurance Providers Payer Name Payer Address Payer Phone Subscriber Number Group Number Insured Name Patient Relationship to Insured Coverage Start Date Coverage End Date [facility] Medicare Advantage PPO [address] [address] [place] [address] [id number] Carol Ken Self - patient is the insured MEDICAL (GENERAL) HISTORY Medical History History ICD Code DM Heart disease HTN HLD Heart attack - Dr. Glez CHF Stroke Afib Blood clots Kidney disease/ stone Acid reflux Liver problems Surgical History Surgery Date(Month/Year) Cholecystectomy 1972 Left hand surgery 1992 Right foot surgery Right hand surgery 2017 Cardiac procedure - Clasp II Valve Repai r 2021
--- OUTSIDE RECORDS SUMMARY | 2024-11-03 08:55 | XMS_ITS | Encounter Summary ---
Author Organization [facility] Address [address] [place] [address] Phone Care Team Providers Care Flight Superintendent Name Role Phone Kevin Serna MD Primary Care Provider [phone] Kevin Glez MD Unavailable [phone] Carline Fung MD Unavailable Jonathan Bills MD Unavailable [phone] Cortez Yen MD Unavailable [phone] Encounter Details Date Type Department Care Team (Latest Contact Info) Description 11/09/2020 Orders Only [facility] Scanning, Provider Social History Tobacco Use Types Packs/Day Years Used Date Smoking Tobacco: Never Smokeless Tobacco: Never Alcohol Use Standard Drinks/Week Comments No 0 (1 standard drink = 0.6 oz pur e alcohol) PHQ-2 Answer Date Recorded PHQ-2 Total Score 0 08/22/2020 Comments Unknown Sex and Gender Information Value Date Recorded Sex Assigned at Not on file Legal Sex Female 12:23 AM ASTRONAUTICAL ENGINEER Gender Identity Female 04/07/2021 10:21 AM ASTRONAUTICAL ENGINEER Sexual Orientation Straight 04/07/2021 10 :21 AM ASTRONAUTICAL ENGINEER documented as of this encounter Plan of Treatment Not on file documented as of this encounter Procedures Procedure Name Priority Date/Time Associated Diagnosis Comments CARDIOLOGY DOCUMENT SCAN 11/09/2020 documented in this encounter Results * SCAN - CARDIOLOGY (11/09/2020) Anatomical Region Laterality Modality Other us Provider Scanning CV CARDIAC SERVICES PROCEDURES Final Result documented in this encounter Visit Diagnoses Not on filedocumented in this encounter Additional Health Concerns Infection Onset Date Last Indicated Resolved Time COVID19 03/20/2021 03/20/2021 03/30/2021 3:05 AM ASTRONAUTICAL ENGINEER COVID: Recovered Comment:Added based on recent COVID infection. 03/30/2021 04/06/2021 07/28/2021 3:05 AM C DT documented as of this encounter Care Teams Flight Superintendent Relationship Specialty Start Date End Date Kevin Serna MD [address] [place] [id number] PCP - General 06/19/11 Kevin Glez MD [address] [place] [address] Referring Physician Cardiovascular Disease 07/25/20 Carline Fung MD [address] [place] [address] Surgeon Cardiothoracic Surgery 05/20/21 Jonathan Bills MD [address] [place] [address] Referring Physician Cardiology 05/20/21 Cortez Yen MD [address] [place] [address] Firer Low Pressure Cardiology 06/19/21 documented as of this encounter
--- OUTSIDE RECORDS SUMMARY | 2024-11-03 08:55 | XMS_ITS | Encounter Summary ---
Author Organization [facility] Healthcare Address [address] [place] [address] Care Team Providers Care Side Puller Name Role Phone Kevin Serna MD Primary Care Provider [phone] Kevin Glez MD Unavailable [phone] Carline Fung MD Unavailable Jonathan Bills MD Unavailable [phone] Cortez Yen MD Unavailable [phone] Encounter Details Date Type Department Care Team (Late st Contact Info) Description 12/02/2020 Telephone [facility] [address] [place] [id number] Vicki García, RT Social History Tobacco Use Types Packs/Day Years Used Date Smoking Tobacco: Never Smokeless Tobacco: Never Alcohol Use Standard Drinks/Week Comments No 0 (1 standard drink = 0.6 oz pur e alcohol) PHQ-2 Answer Date Recorded PHQ-2 Total Score 0 08/22/2020 Comments Unknown Sex and Gender Information Value Date Recorded Sex Assigned at Not on file Legal Sex Female 12:23 AM HOTEL VALET ATTENDANT Gender Identity Female 04/07/2021 10:21 AM HOTEL VALET ATTENDANT Sexual Orientation Straight 04/07/2021 10 :21 AM HOTEL VALET ATTENDANT documented as of this encounter Plan of Treatment Not on file documented as of this encounter Visit Diagnoses Not on filedocumented in this encounter Additional Health Concerns Infection Onset Date Last Indicated Resolved Time COVID19 03/20/2021 03/20/2021 03/30/2021 3:05 AM HOTEL VALET ATTENDANT COVID: Recovered Comment:Added based on recent COVID infection. 03/30/2021 04/06/2021 07/28/2021 3:05 AM C DT documented as of this encounter Care Teams Side Puller Relationship Specialty Start Date End Date Kevin Serna MD [address] [place] [address] PCP - General 06/19/11 Kevin Glez MD [address] [place] [address] Referring Physician Cardiovascular Disease 07/25/20 Carline Fung MD [address] [place] [address] Surgeon Cardiothoracic Surgery 05/20/21 Jonathan Bills MD [address] [place] [address] Referring Physician Cardiology 05/20/21 Cortez Yen MD [address] [place] [address] Teletype Clerk Cardiology 06/19/21 documented as of this encounter
--- OUTSIDE RECORDS SUMMARY | 2024-11-03 08:55 | XMS_ITS | Patient Health Record ---
Author Organization [facility] Address [address] [place] [address] Care Team Providers Care Applied Anthropologist Name Role Phone PHANI HUNT Unavailable [phone] PHANI HUNT M.D. Unavailable Unavailable Allergies Allergen (clinical drug ingredient) Drug/Non Drug Allergy documented on EMR Reaction Allergy Type Onset Date Status BLOOD THINNERS (uncoded) Unknown Allergy Active oxycodone OXYCODONE (uncoded) Unknown Allergy Active PENICILLIN (uncoded) Unknown Allergy Active Substance with sulfonamide structure and antibacterial mechanism of action (substance) SULFA (sulfonamide) (uncoded) Unknown Allergy Active Reason For Referral No Information Medications Medication SIG (Take, Route, Frequency, Duration) Notes Start Date End Date Status Bumetanide 0.5 MG as directed Orally Active Vitamin D2 2000 UNIT 1 tablet Orally Onc e a day; Duration: 30 day(s) Active Levothyroxine Sodium 112 MCG 1 tablet on an empty stomach in the morning Orally Once a day; Duration: 30 day(s) Active Jardiance 10 MG 1 tablet Orally Once a day; Duration: 30 day(s) Active Clopidogrel Bisulfate 75 MG 1 tablet Ora lly Once a day; Duration: 30 day(s) Active Carvedilol 12.5 MG as directed Orally Active hydrALAZINE HCl 100 MG as directed Orally Active Allopurinol 300 MG 1 tablet Orally Once a day; Duration: 30 day(s) Active Pradaxa 75 MG 1 capsule Orally Onc e a day; Duration: 30 day(s) Active Gabapentin 300 MG 1 capsule Orally Twi ce a day; Duration: 30 day(s) Active Problems Problem Type SNOMED Code ICD Code Onset Dates Problem Status W/U Status Risk Notes Problem Carpal tunnel syndrome of right wrist ([id number]) Carpal tunnel syndrome of right wrist (G56.01) Active confirmed Problem Localized, primary osteoarthritis of the hand (444216697) M19.041 Primary osteoarthritis, right hand (M19.041) 12/02/19 18 0 confirmed Problem Localized, primary osteoarthritis of the hand (673382287) M18.11 Unilateral primary osteoarthritis of first carpometac (M18.11) 12/02/19 18 0 confirmed Plan Of Treatment No Information Insurance Providers Payer Name Payer Address Payer Phone Subscriber Number Group Number Insured Name Patient Relationship to Insured Coverage Start Date Coverage End Date [employer]ICARE [employer]AGE [address] [address] [place] [phone] [id number] [place] Self - patient is the insured Medical (General) History Medical History History ICD Code OSTEOARTHRITIS Surgical History Surgery Date(Month/Year) LEFT HAND 02/1993 LEFT SHOULDER REPLACEMENT 12/2011 RIGHT FOOTx2 1978, 1984
--- OUTSIDE RECORDS SUMMARY | 2024-11-03 08:55 | XMS_ITS | Encounter Summary ---
Author Organization [facility] Healthcare Address [address] [place] [address] Care Team Providers Care Cloth Grader Name Role Phone Kevin Serna MD Primary Care Provider [phone] Kevin Glez MD Unavailable [phone] Carline Fung MD Unavailable Jonathan Bills MD Unavailable [phone] Cortez Yen MD Unavailable [phone] Encounter Details Date Type Department Care Team (Late st Contact Info) Description 02/10/2024 Telephone [facility] [address] [address] Kevin Serna MD [address] [place] [address] Social History Tobacco Use Types Packs/Day Years [...] points, staff should administer the PHQ-9) 0 10/29/2023 Personal Safety Answer Date Recorded Have you ever been in or are you currently in a harmful physical or emotional relationship or is someone making you feel afraid or unsafe? Denies 07/10/2023 Comments No Sex and Gender Information Value Date Recorded Sex Assigned at Not on file Legal Sex Female 12:23 AM NECKTIE MAKER Gender Identity Female 04/07/2021 10:21 AM NECKTIE MAKER Sexual Orientation Straight 04/07/2021 10 :21 AM NECKTIE MAKER documented as of this encounter Plan of Treatment Not on file documented as of this encounter Visit Diagnoses Not on filedocumented in this encounter Care Teams Cloth Grader Relationship Specialty Start Date End Date Kevin Serna MD [address] [place] [address] PCP - General 06/19/11 Kevin Glez MD [address] [place] [address] Referring Physician Cardiovascular Disease 07/25/20 Carline Fung MD [address] [facility] [place] [address] Surgeon Cardiothoracic Surgery 05/20/21 Jonathan Bills MD [address] [facility] [place] [address] Referring Physician Cardiology 05/20/21 Cortez Yen MD [address] [place] [address] Welfare Centre Manager Cardiology 06/19/21 documented as of this encounter
--- OUTSIDE RECORDS SUMMARY | 2024-11-03 08:55 | XMS_ITS | Patient Health Record ---
Author Organization [facility] Address [address] [address] Care Team Providers Care Scrap Shear Operator Name Role Phone Shahzad PERKNIS, Rosendo Primary Care Provider Ford De Guzman Unavailable [phone] Allergies Allergen (clinical drug ingredient) Drug/Non Drug Allergy documented on EMR Reaction Allergy Type Onset Date Status SULFA (uncoded) Unknown Allergy Acti ve oxycodone oxyCODONE Unknown Drug Allergy Active Penicillin Unknown Drug Allergy Active Reason For Referral No Information Medications Medication SIG (Take, Route, Frequency, Duration) Notes Start Date End Date Status Pradaxa 75 MG 1 cap(s) orally 2 times a day Active MiraLax - 17 G ORALLY EVERY 15 MIN; Duration: 1 DAY(S) *Please review and pick correct strength-formulat ion from SnapYeti options. If intended option is not shown, discontinue and re-order from Quick Search* Not-Taking hydrALAZINE HCl 50 MG 1 tab(s) orally 3 times a day Active predniSONE *Please review and pick correct strength-formulat ion from SnapYeti options. If intended option is not shown, discontinue and re-order from Quick Search* Not-Taking Jardiance 10 MG 1 tab(s) orally once a day (in the morning) Active Plavix 75 MG 1 tab(s) orally twice a day Not-Taking Levothyroxine Sodium 125 MCG 1 tab(s) orally once a day Active Metoprolol Succinate ER *Please review and pick correct strength-formulat ion from SnapYeti options. If intended option is not shown, discontinue and re-order from Quick Search* Not-Taking Lasix 20 MG 1 tab(s) orally once a day Kate Alvarado MA 07/24/2019 11:20:04 AM > 5mg Not-Taking Carvedilol 12.5 MG 1 tab(s) orally 2 times a day Active Potassium *Please review and pick correct strength-formulat ion from SnapYeti options. If intended option is not shown, discontinue and re-order from Quick Search* Active Clopidogrel Bisulfate 75 MG 1 tab(s) orally once a day Active Famotidine 40 MG 1 tab(s) orally bid; Duration: 90 Not-Taking Fluticasone Propionate (Inhal) *Please review and pick correct strength-formulat ion from Cash Check Cardan options. If intended option is not shown, discontinue and re-order from Quick Search* Not-Taking Allopurinol 300 MG 1 tab(s) orally once a day Not-Taking ALPHAGAN Kate Alvarado MA 08/21/2019 10:15:12 AM > 0.1% twice a day *Please review for potential replacement for e-prescription and drug interaction check* Active Singulair *Please review and pick correct strength-formulat ion from Cash Check Cardan options. If intended option is not shown, discontinue and re-order from Quick Search* Not-Taking Bumetanide 0.5 MG 2 tab(s) orally once a day Active Iron *Please review and pick correct strength-formulat ion from Cash Check Cardan options. If intended option is not shown, discontinue and re-order from Quick Search* Not-Taking Gabapentin 300 MG 1 cap(s) orally 2 times a day Active Atorvastatin Calcium 10 MG 1 tab(s) orally once a day; Duration: 30 day(s) Active ALOE VERA, TOPICAL - 1 KRISHNA APPLIED TOPICALLY 2 TIMES A DAY; Duration: 10 DAY(S) *Please review for potential replacement for e-prescription and drug interaction check* 05/27/2017 Not-Taking Kate Christensen MA 08/21/2019 10:15:46 AM > .01% one time at bedtime *Please review and pick correct strength-formulat ion from SnapYeti options. If intended option is not shown, discontinue and re-orde Active RANITIDINE HYDROCHLORIDE 150 MG 1 CAP(S) ORALLY 2 TIMES A DAY; Duration: 30 DAYS *Please review for potential replacement for e-prescription and drug interaction check* 05/27/2017 Not-Taking Social History Tobacco Use: Social History Observation Description Date Details (start date - stop date) Never Smoker NA - NA Smoking Question Answer Notes Are you a: nonsmoker Additional Findings: Tobacco Non-User Current no n-smoker Alcohol Screening Question Answer Notes Did you have a drink containing alcohol in the p ast year? 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 Problem Iron deficiency anemia (92280895) Iron deficiency anemia, unspecified (D50.9) Active confirmed Problem Hypothyroidism (28712007) Hypothyroidism, unspecified (E03.9) Active confirmed Problem Type II diabetes mellitus without complication (372517353) Type 2 diabetes mellitus without complications (E11.9) Active confirmed Problem Sleep apnea (89669850) Sleep apnea, unspecified (G47.30) Active confirmed Problem Chronic atrial fibrillation (963306917) Chronic atrial fibrillation (I48.2) Active confirmed Problem Heart failure (50416211) Heart failure, unspecified (I50.9) Active confirmed Problem Cough variant asthma (966701095) Cough variant asthma (J45.991) Active confirmed Problem Gastro-esophageal reflux disease without esophagitis (254954567) Gastro-esophageal reflux disease without esophagitis (K21.9) Active confirmed Problem Allergic gastroenteritis and colitis (759529975) 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) Active confirmed Problem Diverticula of intestine (53908408) Diverticulosis of intestine, part unspecified, without perforation or abscess without bleeding (K57.90) Active confirmed Problem Hemorrhage of rectum and anus (275291386) Hemorrhage of anus and rectum (K62.5) Active confirmed Problem Celiac disease (435236070) Celiac disease (K90.0) Active confirmed Problem Renal failure syndrome (65783793) Unspecified kidney failure (N19) Active confirmed Problem Generalized abdominal pain (535644804) Generalized abdominal pain (R10.84) Active confirmed Problem Heartburn (50521009) Heartburn (R12) Active confirmed Problem Change in bowel habit (63022543) Change in bowel habit (R19.4) Active confirmed Problem Diarrhea (89218515) Diarrhea, unspecified (R19.7) Active confirmed Problem BMI 25-29 - overweight (125659427) Body mass index (BMI) 29.0-29.9, adult (Z68.29) Active confirmed Plan Of Treatment Pending Test Test Name Order Date CT abdomen and pelvis with contrast 05/03 CT VIRTUAL COLONOSCOPY DIAGNOSTIC 2020 CBC w/ Differential, w/ Platelet 019 Insurance Providers Payer Name Payer Address Payer Phone Subscriber Number Group Number Insured Name Patient Relationship to Insured Coverage Start Date Coverage End Date [employer] [address] [address] [place] [phone] [id number] Carol Ken Self - patient is the insured Medical (General) History Medical History History ICD Code Coronary Artery disease Hypertension Arthritis Thyromegaly diabetes mellitus Irritable bowel syndrome Surgical History Surgery Date(Month/Year) hand surgery Shoulder surgery Foot surgery Cardiac catheterization 01/2020 Hospitalization History Reason Date(Month/Year) hand surgery Shoulder surgery Foot surgery Fainted 05/18/2020
--- OUTSIDE RECORDS SUMMARY | 2024-11-03 08:55 | XMS_ITS | Encounter Summary ---
Author Organization [facility] Address [address] [place] [address] Phone Care Team Providers Care Peg Driver Name Role Phone Kevin Serna MD Primary Care Provider [phone] Kevin Glez MD Unavailable [phone] Carline Fung MD Unavailable Jonathan Bills MD Unavailable [phone] Cortez Yen MD Unavailable [phone] Encounter Details Date Type Department Care Team (Late st Contact Info) Description 07/15/2023 Documentation [facility] Medicine Cardiology [address] [facility] Advanced Medicine [address]th [place] [address] [place] [address] Jonathan Bills MD [address] [facility] [address] [place] [address] Social History Tobacco Use Types Packs/Day Years [...] points, staff should administer the PHQ-9) 0 01/29/2023 Personal Safety Answer Date Recorded Have you ever been in or are you currently in a harmful physical or emotional relationship or is someone making you feel afraid or unsafe? Denies 07/10/2023 Comments No Sex and Gender Information Value Date Recorded Sex Assigned at Not on file Legal Sex Female 12:23 AM SECTION GANG Gender Identity Female 04/07/2021 10:21 AM SECTION GANG Sexual Orientation Straight 04/07/2021 10 :21 AM SECTION GANG documented as of this encounter Plan of Treatment Not on file documented as of this encounter Visit Diagnoses Not on filedocumented in this encounter Care Teams Peg Driver Relationship Specialty Start Date End Date Kevin Serna MD [address] [place] [address] PCP - General 06/19/11 Kevin Glez MD [address] [facility] [address] [place] [address] Referring Physician Cardiovascular Disease 07/25/20 Carline Fung MD [address] [facility] [address] [place] [address] Surgeon Cardiothoracic Surgery 05/20/21 Jonathan Bills MD [address] [facility] [address] [place] [address] Referring Physician Cardiology 05/20/21 Cortez Yen MD [address] [place] [address] Fish Farmer Cardiology 06/19/21 documented as of this encounter
== END 2024-11-03 08:47 | disposition home or self-care (01) ==
LOC: ANHIMG 08:49
PROVIDERS: PCP Family Medicine; Visit Provider Otolaryngology
DX: J32.0 Chronic maxillary sinusitis (principal); J32.2 Chronic ethmoidal sinusitis; G89.29 Other chronic pain; K11.20 Sialoadenitis, unspecified
CPT/HCPCS: 70486

== ENCOUNTER 2025-02-12 13:45 | Outpatient (CLI) | payer MEDICARE, SELFPAY ==
--- NOTE | ~2025-02-12 | US_ITS ---
EXAMINATION: US venous doppler [facility] DATE: 02/12/2025 14:45 INDICATION: Bilateral lower extremity pain and edema. TECHNIQUE: Grayscale ultrasound images without and with compression and Doppler ultrasound images of the bilateral lower extremity veins were obtained. COMPARISON: None. FINDINGS: The visualized portions of right common femoral vein, profunda (deep) femoral vein, femoral vein, popliteal vein, peroneal veins, posterior tibial veins, and greater saphenous vein outflow are patent. The visualized portions of left common femoral vein, profunda femoral vein, femoral vein, popliteal vein, peroneal veins, posterior tibial veins, and greater saphenous vein outflow are patent. IMPRESSION: 1. No deep venous thrombosis in both lower extremities. Subcutaneous edema on the calf is noted, particularly on the right side.. Reviewed, dictated and finalized at location T. H SOCIAL WORKER
== END 2025-02-12 13:46 | disposition home or self-care (01) ==
PROVIDERS: PCP Family Medicine; Visit Provider Podiatrist Foot & Ankle Surgery
DX: R22.41 Localized swelling, mass and lump, right lower limb (principal); M79.662 Pain in left lower leg
CPT/HCPCS: 93970